=== PATIENT | male | born 1945 | race Caucasian/White ===

== ENCOUNTER 2016-08-17 09:18 | Emergency (ER) | payer MEDICARE, MEDICAID ==
[~2016-08-17] VITALS: Ht 165.1 cm; Wt 70.8 kg
[~2016-08-17 09:18] MED LIST: AMLO5TAB4 PO; CARV25TA PO; CLON0.1T PO; FOLI0.8T23 PO; LEVO25TA2 PO; LISI-603 PO; PANT40TA2 PO
[2016-08-17 12:36] VITALS: BP 138/90
== END 2016-08-17 12:38 | disposition home or self-care (01) ==
LOC: ER 09:20
DX: I12.0 Hypertensive chronic kidney disease with stage 5 chronic kidney disease or end stage renal disease (principal); N18.6 End stage renal disease; K21.9 Gastro-esophageal reflux disease without esophagitis; E03.9 Hypothyroidism, unspecified; E78.5 Hyperlipidemia, unspecified; Z99.2 Dependence on renal dialysis
CPT/HCPCS: A4606; Z7610

== ENCOUNTER 2016-10-03 06:30 | Inpatient (IN) | payer MEDICARE, MEDICAID ==
[~2016-10-03] VITALS: Ht 172.7 cm; Wt 72.6 kg
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
--- NOTE | 2016-10-03 07:02 | NUR ---
REPORT GIVEN TO RODRIGO MARIANO FOR CONTINUATION OF CARE.
--- NOTE | 2016-10-03 07:05 | NUR ---
IV INSERTED LEFT WRIST 20G. PATENT AND FLUSHING WELL.
--- NOTE | 2016-10-03 07:09 | NUR ---
PT TO CT SCAN
[2016-10-03 07:13] LABS: BASOPHILS % (AUTO) 0.4 % (0.0-2.0); EOSINOPHILS # (AUTO) 0.2 /CMM (0.0-0.7); EOSINOPHILS % (AUTO) 3.4 % (0.0-6.0); HEMATOCRIT 28 % (39-51); HEMOGLOBIN 9.1 g/dL (13.5-17.5); LYMPHOCYTES # (AUTO) 0.6 /CMM (0.8-4.8); LYMPHOCYTES % (AUTO) 8.8 % (20.0-44.0); MEAN CORPUSCULAR HEMOGLOBIN 29 PG (26.0-33.0); MEAN CORPUSCULAR HGB CONC 32 g/dl (31.0-36.0); MEAN CORPUSCULAR VOLUME 90 fL (80-96); MONOCYTES # (AUTO) 1.1 /CMM (0.1-1.30); MONOCYTES % (AUTO) 15.6 % (2.0-12.0); NEUTROPHILS # (AUTO) 4.9 /CMM (1.8-8.9); NEUTROPHILS % (AUTO) 71.8 % (43.0-81.0); PLATELET COUNT (AUTO) 345 /CMM (150-450); RDW COEFFICIENT OF VARIATION 16.1 (11.5-15.0); RED BLOOD CELL COUNT(AUTO) 3.11 MIL/uL (4.5-6.0); WHITE BLOOD COUNT (AUTO) 6.9 K/uL (4.3-11.0)
[2016-10-03 07:28] LABS: BILIRUBIN,DIRECT 0.1 mg/dL (0.0-0.2); BILIRUBIN,TOTAL 0.5 mg/dL (0.2-1.0); CALCIUM, SERUM 8.7 mg/dL (8.5-10.1); POTASSIUM 5.1 mmol/L (3.5-5.1); TOTAL PROTEIN, SERUM 7.9 g/dL (6.4-8.2)
[2016-10-03 07:30] LABS: TROPONIN I 0.046 ng/mL (0.00-0.056)
[2016-10-03 07:34] LABS: CREATININE 8.6 mg/dL (0.6-1.3); INR 1.06 (0.87-1.13); PROTHROMBIN TIME 11.4 SECS (9.5-12.7)
[2016-10-03] MEDS ORDERED: ATOR10TA PO (08:28)
[2016-10-03] MEDS ORDERED: CARV3.122 PO (08:28)
[2016-10-03] MEDS ORDERED: SEVE800T8 PO (08:28)
[2016-10-03] MEDS ORDERED: OMEP20CA10 PO (08:28)
[2016-10-03] MEDS ORDERED: CALC667C6 PO (08:28)
[2016-10-03] MEDS ORDERED: VALS80TA2 PO (08:28)
[2016-10-03] MEDS ORDERED: DOXA4TAB3 PO (08:30)
[2016-10-03 08:47] LABS: EOSINOPHILS % (MANUAL) 4 % (0-4); LYMPHOCYTES % (MANUAL) 6 % (16-48); MONOCYTES % (MANUAL) 9 % (0-11.0); NEUTROPHILS % (MANUAL) 81 (42-76)
[2016-10-03 08:48] LABS: ANISOCYTOSIS 1+; PLATELET ESTIMATE ADEQUATE
--- NOTE | 2016-10-03 09:19 | NUR ---
GAVE REPORT TO LIV WALLACE TELE ROOM 312-1 .
--- NOTE | 2016-10-03 09:25 | NUR ---
PANEL ON-CALL PAGED
--- NOTE | 2016-10-03 10:29 | NUR ---
TRANSFER VIA ACLS PROTOCOL
[2016-10-03] MEDS ORDERED: EPOETIN ALFA (10,000 UNIT) 10,000 UNIT/ML VIAL IV ONE (10:30)
--- NOTE | 2016-10-03 10:30 | NUR ---
PAPER CONE GRADER NOTES RECEIVED PT. FROM ER NURSE IN STABLE CONDITION. THERE ARE NO COMPLAINTS OF PAIN AT THIS TIME. NO SOB OR DIFFICULTY BREATHING. BED IN LOW LOCKED POSITION, ALARM ON, SIDE RAILS UP X2, CALL LIGHT WITHIN REACH. WILL BEGIN ADMISSION PROCESS AND AWAIT FURTHER ORDERS FROM THE MD.
[2016-10-03 11:00] VITALS: BP 142/76
[2016-10-03 16:00] VITALS: BP 156/70
--- NOTE | 2016-10-03 18:35 | NUR ---
RUBBER MIXER CLOSING NOTES PT IN STABLE CONDITION, RESTING IN BED. HEMODIALYSIS WAS COMPLETED TODAY. PT HAS BEEN IN STABLE CONDITION SINCE. NO SOB OR SIGNS OF DISTRESS NOTED. ALL ORDERS WERE CARRIED OUT THROUGHOUT SHIFT. WILL ENDORSE TO NIGHTSHIFT NURSE FOR TREASURE.
--- NOTE | 2016-10-03 19:40 | NUR ---
SEALING MACHINE OPERATOR NOTE RECEIVED PATIENT FROM DAY SHIFT, PATIENT IS ALERT AND ORIENTEDX2-3, CONFUSED SOMETIMES, DENIES PAIN OR RESPIRATORY DISTRESS AT THIS TIME. LEFT WRIST 20 G IS PATENT AND INTACT, HL ONLY. RIGHT ARM AV SHUNT NOTED. PATIENT HAD HD TODAY, PER DAY SHIFT NURSE, HOME MEDS RECON HASN'T BEEN DONE BY DR. WHITEHEAD, WILL NOTIFY HIM BEFORE SHE LEAVES. TELE SR 90. SRX2, BED IN LOW POSITION, CALL LIGHT WITHIN REACH, WILL CONTINUE TO MONITOR PATIENT.
[2016-10-03 20:00] VITALS: BP 165/80
[2016-10-04] VITALS (7 sets, daily range): BP systolic 116–168; BP diastolic 69–79
--- NOTE | 2016-10-04 04:54 | NUR ---
DELIVERY HELPER NOTE PATIENT COMPLAINS OF PAIN ON LEFT RIB CAGE, PAGED ONCALL DR GABRIEL. GOT AN ORDER OF TYLENOL 650MG PO ONCE, AND ALSO STATED THAT WAIT UNTIL THE MORNING FOR NORCO. ORDERS IN AND WILL CARRY OUT. Addendum: 10/04/16 at 0507 by SHAMEKA RUSH RN PT INITIALLY ASKED TO TAKE NORCO.
[2016-10-04] MEDS ORDERED: ACETAMINOPHEN 325 MG TABLET ONE (04:55)
[2016-10-04] MEDS: ACETAMINOPHEN 325 MG TABLET PO ONE ×2 (04:59→05:06)
--- NOTE | 2016-10-04 05:07 | NUR ---
DIRECTOR TELEHEALTH NOTE PATIENT REFUSED TO TAKE TYLENOL 650MG STATING 'DON'T PLAY GAMES WITH ME, IT DOES NOTHING TO ME, YOU TAKE IT. FORGET ABOUT IT, I'M FINE. ' ACKNOWLEDGED AND WASTED IT IN PYXIS. NOTIFIED CHG RN WELL.
--- NOTE | 2016-10-04 06:59 | NUR ---
STAIN WIPER NOTE PATIENT IS RESTING IN BED, DENIES RESPIRATORY DISTRESS OR NO FACIAL GRIMACE NOTED. IV ON LEFT WRIST IS PATENT AND INTACT, HL ONLY. TELE MONITOR SR 87. WILL ENDORSE TO DAY SHIFT NURSE FOR TREASURE.
--- NOTE | 2016-10-04 08:00 | NUR ---
ETL PROGRAMMER CLOSING NOTE PATIENT IS ALERT AND ORIENTED x3. PATIENT STATES PAIN ON LEFT SIDE OF RIBS. OFFERED PAIN MEDICATION,PATIENT REFUSED. NO SOB OR DISTRESS AT THIS. CALL LIGHT WITHIN REACH. SAFETY MEASURES IMPLEMENTED. IV INTACT AND PATENT NO REDNESS OR SWELLING NOTED. WILL CONTINUE TO MONITOR. Addendum: 10/04/16 at 0919 by KRISTINE CLEMENTE RN OPENING*
--- NOTE | 2016-10-04 08:00 | NUR ---
BODY WORK AUTO TRIMMER NOTE CALLED DR. WHITEHEAD FOR MEDICATION RECON. AWAITING CALL BACK.
--- NOTE | 2016-10-04 09:19 | NUR ---
SEWER LINE REPAIRER NOTE PATIENT TO BE D/C OFF TELE. WHEN TELLING PATIENT TELE MONITOR NEEDS TO BE TAKEN OFF, PATIENT BECAME AGGRESSIVE WITH MYSELF AND STUDENT. PATIENT REFUSED TO HAVE TELE BOX REMOVED. CHARGE NURSE AWARE.
--- NOTE | 2016-10-04 11:35 | NUR ---
AIR BRAKE WORKER NOTE PATIENT IS REFUSING TO HAVE PHYSICAL THERAPY, PATIENT IS UPSET AND YELLING AT THERAPIST. PHYSICAL THERAPY WILL TRY AGAIN LATER WHEN PATIENT CALMS DOWN AND WE CAN EXPLAIN THE NEED FOR THERAPY
[2016-10-04] MEDS ORDERED: MORPHINE SULFATE INJ 2 MG/ML DISP.SYRIN IM PRN (13:00)
[2016-10-04] MEDS: CARVEDILOL 3.125 MG TABLET PO SCH ×3 (17:00→19:54)
[2016-10-04] MEDS: SEVELAMER CARBONATE 800 MG TABLET PO SCH ×3 (17:12→20:03)
[2016-10-04] MEDS: CALCIUM ACETATE 667 MG TABLET PO SCH ×3 (17:12→20:03)
--- NOTE | 2016-10-04 17:30 | NUR ---
COMPOSITION WEATHERBOARD APPLIER NOTE PATIENT REFUSED MEDICATION. EXPLAINED THE RISKS AND BENEFITS OF MEDICATION PATIENT STILL REFUSED. PATIENT WAS STATING THAT HE DOES NOT WANT TO TAKE THE MEDICATION IN THE HOSPITAL AND WANTS TO TAKE THE MEDICATIONS HE WAS GIVEN WHICH ARE AT HOME. PATIENT BEGAN TO YELL AT ME TELLING ME TO LEAVE AND THAT I SHOULD TAKE HIS MEDICATION. MADE CHARGE NURSE AND COBOL APPLICATION DEVELOPER KNOW ABOUT PATIENT.
--- NOTE | 2016-10-04 18:51 | NUR ---
LETTUCE CUTTER CLOSING NOTE PATIENT IS ALERT AND ORIENTED x4. NO PAIN AT THIS TIME. NO SOB OR DISTRESS NOTED. ALL DUE MEDICATION GIVEN ORDERED. PATIENT NON-COMPLIANT WITH MEDICATION. EXPLAINED RISKS AND BENEFITS MANY TIMES. PATIENT BECOMES UPSET AND TELLS ME TO LEAVE HIS ROOM. CHARGE AND PRESCHOOL TEACHER AIDE AWARE. CALL LIGHT WITHIN REACH AT ALL TIMES. SAFETY MEASURES IMPLEMENTED. WILL ENDORSE TO WATER TAXI OPERATOR NURSE
--- NOTE | 2016-10-04 19:30 | NUR ---
MS RN NOTE RECEIVED PATIENT AWAKE, ALERT AND ORIENTED IN BED. ABLE TO MAKE NEEDS KNOWN. VERY IRRITABLE. RELAXATION TECHNIQUES PROVIDED. SEEMED TO HELP. NO RESPIRATORY DISTRESS AT THIS TIME. PATIENT HAS 8/10 GENERALIZED PAIN.WILL ADMINISTER PAIN MEDICATION ORDERED. BED LOCKED AND IN LOWEST POSITION. SIDE RAILS UP, CALL LIGHT WITHIN REACH. WILL CONTINUE TO MONITOR.
--- NOTE | 2016-10-04 20:04 | NUR ---
MS RN NOTE PATIENT REFUSED RENVELA, CALCIUM ACETATE AND COREG EARLIER. ADMINISTERING NOW. BP 166/78. WILL CONTINUE TO MONITOR.
--- NOTE | 2016-10-04 20:08 | NUR ---
MS RN NOTE PATIENT CONTINUES TO REFUSE RENVELA. THREW PILL ON FLOOR. PER PATIENT, HE TAKES THREE RENVELA AT HOME. WILL NOTIFY .
[2016-10-05] MEDS: MORPHINE SULFATE INJ 2 MG/ML DISP.SYRIN IV PRN ×5 (02:24→22:00)
[2016-10-05] MEDS: LEVOTHYROXINE SODIUM 25 MCG TABLET PO SCH (06:28)
[2016-10-05] MEDS: PANTOPRAZOLE 40 MG TABLET.DR PO SCH (06:28)
--- NOTE | 2016-10-05 07:35 | NUR ---
MS RN INITIAL NOTES REPORT RECEIVED AT THE BEDSIDE. PATIENT RESTING COMFORTABLY IN BED. NO SOB OR DISTRESS NOTED AT THIS TIME. PATIENT REPORTS TOLERABLE PAIN AT THIS TIME, POST MEDICATION. BED IN A LOW POSITION, CALL LIGHT WITHIN PATIENT REACH. WILL CONTINUE TO MONITOR.
[2016-10-05 08:00] VITALS: BP_SYST 100; BP_SYST 172; BP_DIAS 62; BP_DIAS 85
--- NOTE | 2016-10-05 08:13 | NUR ---
MS RN NOTES PATIENT BP IS HIGH 172/85. PATIENT IS DUE FOR DIALYSIS. WAS TOLD PER DIALYSIS NURSE TO STILL HOLD MORNING BP MEDS PRIOR TO DIALYSIS.
[2016-10-05] MEDS: VALSARTAN 80 MG TABLET PO SCH (08:31)
[2016-10-05] MEDS: DOXAZOSIN MESYLATE (4 MG) 4 MG TABLET PO SCH (08:31)
[2016-10-05] MEDS ORDERED: ATORVASTATIN 10 MG TABLET PO SCH ×2 (09:00→22:00)
[2016-10-05 09:35] LABS: BASOPHILS % (AUTO) 0.3 % (0.0-2.0); EOSINOPHILS # (AUTO) 0.2 /CMM (0.0-0.7); HEMATOCRIT 26 % (39-51); HEMOGLOBIN 8.5 g/dL (13.5-17.5); LYMPHOCYTES # (AUTO) 0.5 /CMM (0.8-4.8); LYMPHOCYTES % (AUTO) 7.5 % (20.0-44.0); MEAN CORPUSCULAR HEMOGLOBIN 29 PG (26.0-33.0); MEAN CORPUSCULAR HGB CONC 33 g/dl (31.0-36.0); MEAN CORPUSCULAR VOLUME 90 fL (80-96); MONOCYTES # (AUTO) 0.8 /CMM (0.1-1.30); MONOCYTES % (AUTO) 10.9 % (2.0-12.0); NEUTROPHILS # (AUTO) 5.7 /CMM (1.8-8.9); NEUTROPHILS % (AUTO) 78.3 % (43.0-81.0); PLATELET COUNT (AUTO) 302 /CMM (150-450); RDW COEFFICIENT OF VARIATION 16.3 (11.5-15.0); WHITE BLOOD COUNT (AUTO) 7.2 K/uL (4.3-11.0)
[2016-10-05 09:47] LABS: CALCIUM, SERUM 8.3 mg/dL (8.5-10.1); POTASSIUM 4.2 mmol/L (3.5-5.1)
[2016-10-05 12:00] VITALS: BP 179/81
[2016-10-05] MEDS: CLONIDINE HCL 0.1 MG TABLET PO PRN ×2 (12:33→17:32)
[2016-10-05] MEDS: VIT B CMPLX 3/FA/VIT C/BIOTIN 1 TAB TABLET PO SCH (12:33)
[2016-10-05] MEDS: SEVELAMER CARBONATE 800 MG TABLET PO SCH ×2 (12:33→17:33)
[2016-10-05] MEDS: CALCIUM ACETATE 667 MG TABLET PO SCH ×2 (12:34→17:33)
--- NOTE | 2016-10-05 12:37 | NUR ---
MS RN NOTES PATIENT BP IS 179/81. PATIENT IS REFUSING PRN CLONIDINE. PATIENT STATES THAT HE IS AFRAID TO TAKE ANY BP MEDS RIGHT NOW HE BELIEVES THEY ARE WHAT HAVE BEEN CAUSING HIS DIZZINESS. EXPLAINED TO THE PATIENT THAT THE BP MEDS ARE NEEDED, BUT PATIENT IS REFUSING TO TALK AND STATES, "NO BLOOD PRESSURE MEDS NOW." WILL RECHECK BP ONCE PATIENT HAS CALMED DOWN.
[2016-10-05 13:40] VITALS: BP 150/82
[2016-10-05 13:54] LABS: THYROID STIMULATING HORMONE 1.25 uIU/mL (0.358-3.74)
[2016-10-05 13:59] LABS: TROPONIN I 0.052 ng/mL (0.00-0.056)
[2016-10-05 14:12] LABS: IRON, SERUM 35 ug/dl (50-175); TOTAL IRON BINDING CAPACITY 220 ug/dl (250-450)
--- NOTE | 2016-10-05 14:40 | NUR ---
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 CALLED DR COTA OFFICE FOR DOCTOR JAMES AND WAS TRANSFERRED STRAIGHT TO [employer]. LEFT URGENT MESSAGE WITH DVT INFORMATION FOR DR JAMES TO CALL BACK. WILL FOLLOW UP.
[2016-10-05] MEDS ORDERED: EPOETIN ALFA (10,000 UNIT) 10,000 UNIT/ML VIAL IV ONE (15:00)
--- NOTE | 2016-10-05 15:16 | NUR ---
RECORD CHANGER ASSEMBLER NOTES CALLED AND LEFT A SECOND MESSAGE FOR DOCTOR JAMES ON THE OFFICE ANSWERING MACHINE. WAITING FOR RETURN CALL.
--- NOTE | 2016-10-05 15:40 | NUR ---
BOX PERSON NOTE CALLED NICOLE, DIALYSIS NURSE, AND ASKED IF HE COULD PASS ON A MESSAGE TO HAVE HER CALL ON THE PATIENT JENNIFER. NICOLE STATES HE WILL RELAY THE MESSAGE.
--- NOTE | 2016-10-05 15:49 | NUR ---
MS RN NOTES CALLED DR JAMES EXCHANGE AND LEFT ANOTHER MESSAGE.
[2016-10-05 16:00] VITALS: BP 181/85
--- NOTE | 2016-10-05 16:34 | NUR ---
MS RN NOTES NURSING WALLCOVERING TEXTURER INFORMED OF NO CALL BACK FROM MD AND PT DIAGNOSIS.
--- NOTE | 2016-10-05 17:17 | NUR ---
MS RN NOTES CALLED DR JAMES EXCHANGE AGAIN AND LEFT A MESSAGE. PATIENT WAS TAKEN OFF FLOOR FOR XRAY.
[2016-10-05] MEDS: CARVEDILOL 3.125 MG TABLET PO SCH (17:33)
--- NOTE | 2016-10-05 18:33 | NUR ---
PATIENT OBSERVATION ASSISTANT NOTE CALLED DR JAMES EXCHANGE AGAIN AND SPOKE TO DR WELCH WHO IS PLASTERER TENDER. INFORMED MD OF CAROTID SCAN RESULTS. STATES THAT DR JAMES WILL TAKE CARE OF TREATMENT IN AM.
[2016-10-05 19:00] VITALS: BP 180/87
--- NOTE | 2016-10-05 19:05 | NUR ---
EMERGENCY ROOM PHYSICIAN CLOSING NOTES NO SIGNIFICANT CHANGES IN PATIENT CONDITION THROUGHOUT THE SHIFT. NO SOB OR DISTRESS NOTED AT THIS TIME. PATIENT DENIES PAIN. HEART RATE SR 90. BED IN A LOW POSITION, CALL LIGHT WITHIN PATIENT REACH. WILL ENDORSE FOR TREASURE.
--- NOTE | 2016-10-05 19:15 | NUR ---
RN NOTE RECEIVED REPORT. PT AAOX4, NO C/O CP/SOB/DIZZINESS. NO S/S OF ANY DISTRESS AT THIS TIME. TELE SHOWS SR. WILL OBTAIN ORTHOSTATIC VS. IV INTACT AND PATNT. CALL LIGHT IN REACH, WILL CONT TO MONITOR.
[2016-10-05 22:15] VITALS: BP 158/77
[2016-10-06] VITALS: BP 177/83
--- NOTE | 2016-10-06 01:55 | NUR ---
RN NOTE PT SYSTOLIC BLOOD PRESSURE ELEVATED IN 180'S. PT REFUSED BLOOD PRESSURE PRN DESPITE TEACHING AND ENCOURAGEMENT X3. PT BECAME VERY AGITATED AND COMBATIVE, WHEN GIVING PT TEACHING SAYING "GET OUT OF HERE, IM NOT TAKING THIS". WILL CONT TO MONITOR.
[2016-10-06 04:00] VITALS: BP 171/90
--- NOTE | 2016-10-06 06:30 | NUR ---
RN NOTE PT AWAKE AND ALERTX2, HAS PERIODS OF AGITATION AND CONFUSION. NO C/O CP OR SOB AT THIS TIME. ON ROOM AIR. REFUSING BP MEDICATION FOR ELEVATED SBP. IV INTACT AND PATENT S/L. SAFETY AND COMFORT MEASURES RENDERED. WILL F/U WITH DAY SHIFT FOR TREASURE.
--- NOTE | 2016-10-06 07:35 | NUR ---
MS RN RECEIVED ON BED,AWAKE,ALERT,ORIENTED X4, NOT IN ANY FORM OF DISTRESS, RESPIRATIONS EVEN AND UNLABORED, NO SOB NOTED, WILL MONITOR PATIENT'S CONDITION.
--- NOTE | 2016-10-06 07:52 | NUR ---
LAY 180/87 SIT 176/82 STAND 197/ Addendum: 10/06/16 at 0753 by MARILEE TOLBERT RN Amended: Links added.
[2016-10-06 08:00] VITALS: BP 188/90
[2016-10-06 08:22] LABS: BASOPHILS % (AUTO) 0.4 % (0.0-2.0); EOSINOPHILS # (AUTO) 0.2 /CMM (0.0-0.7); EOSINOPHILS % (AUTO) 2.5 % (0.0-6.0); HEMATOCRIT 29 % (39-51); HEMOGLOBIN 9.2 g/dL (13.5-17.5); LYMPHOCYTES # (AUTO) 0.4 /CMM (0.8-4.8); MEAN CORPUSCULAR HEMOGLOBIN 29 PG (26.0-33.0); MEAN CORPUSCULAR HGB CONC 31 g/dl (31.0-36.0); MEAN CORPUSCULAR VOLUME 91 fL (80-96); MONOCYTES # (AUTO) 1.2 /CMM (0.1-1.30); MONOCYTES % (AUTO) 14.2 % (2.0-12.0); NEUTROPHILS # (AUTO) 6.5 /CMM (1.8-8.9); NEUTROPHILS % (AUTO) 77.9 % (43.0-81.0); PLATELET COUNT (AUTO) 313 /CMM (150-450); RDW COEFFICIENT OF VARIATION 15.9 (11.5-15.0); WHITE BLOOD COUNT (AUTO) 8.3 K/uL (4.3-11.0)
[2016-10-06] MEDS: LEVOTHYROXINE SODIUM 25 MCG TABLET PO SCH (08:25)
[2016-10-06] MEDS: SEVELAMER CARBONATE 800 MG TABLET PO SCH ×3 (08:26→17:24)
[2016-10-06] MEDS: VIT B CMPLX 3/FA/VIT C/BIOTIN 1 TAB TABLET PO SCH (08:26)
[2016-10-06] MEDS: CALCIUM ACETATE 667 MG TABLET PO SCH ×3 (08:26→17:24)
[2016-10-06] MEDS: PANTOPRAZOLE 40 MG TABLET.DR PO SCH (08:26)
[2016-10-06] MEDS: CARVEDILOL 3.125 MG TABLET PO SCH ×2 (08:28→17:25)
[2016-10-06] MEDS: DOXAZOSIN MESYLATE (4 MG) 4 MG TABLET PO SCH (08:28)
[2016-10-06] MEDS: MORPHINE SULFATE INJ 2 MG/ML DISP.SYRIN IV PRN ×3 (08:42→17:30)
[2016-10-06 08:55] LABS: CREATININE 7.3 mg/dL (0.6-1.3); PHOSPHORUS 4.5 mg/dL (2.5-4.9); POTASSIUM 5.2 mmol/L (3.5-5.1)
[2016-10-06] MEDS: VALSARTAN 80 MG TABLET PO SCH (09:00)
--- NOTE | 2016-10-06 09:05 | NUR ---
MS WALLACE BREAKFAST SERVED,DUE MEDS GIVEN,TOLERATED WELL.
--- NOTE | 2016-10-06 09:10 | NUR ---
MS RN WAS SEEN BY DR. ERIKA Tracy/ ORDERS MADE AND CARRIED OUT.
--- NOTE | 2016-10-06 09:20 | NUR ---
MS RN PATIENT REFUSED DVT PROFILAXIS, WAS DISCUSSED W/ DR. JAMES.
[2016-10-06 16:00] VITALS: BP 159/80
--- NOTE | 2016-10-06 17:00 | NUR ---
MS RN DUE MEDS GIVEN,TOLERATED WELL.
[2016-10-06 19:00] VITALS: BP 170/76
--- NOTE | 2016-10-06 19:21 | NUR ---
MS RN ON BED, NO DISTRESS NOTED.
--- NOTE | 2016-10-06 19:23 | NUR ---
RN NOTE RECEIVED REPORT. PT RESTING IN BED WITH EYES CLOSED, NO S/S OF ANY DISTRESS AT THIS TIME. BREATHING NON-LABORED AND EVEN. CALL LIGHT IN REACH, WILL CONT TO MONITOR.
--- NOTE | 2016-10-06 21:00 | NUR ---
RN NOTE PT REFUSING BLOOD PRESSURE PRN MED DESPITE TEACHING AND ENCOURAGEMENT X4. SBP IN 170'S. WILL NOT TAKE IT, GETS VERY AGITATED AND COMBATIVE WHEN ASKING. WILL CONT TO MONITOR.
--- NOTE | 2016-10-07 03:00 | NUR ---
RN NOTE PT CONTINUES TO REFUSE HIS PRN BP MEDICATION FOR HIGH SBP., DESPITE TEACHING X4. WILL CONT TO MONITOR.
[2016-10-07] MEDS: MORPHINE SULFATE INJ 2 MG/ML DISP.SYRIN IV PRN ×3 (06:08→22:23)
--- NOTE | 2016-10-07 06:24 | NUR ---
RN NOTE NO SIGNIFICANT CHANGES OVERNIGHT. PT AWAKE AND ALERT X3, STILL REFUSING PRN BP MEDICATION FOR HIGH SBP. NO C/O OF PAIN OR DISCOMFORT AT THIS TIME. DENIES SOB/CP. IV INTACT AND PATENT. CALL LIGHT IN REACH. WILL F/U WITH DAY SHIFT FOR TREASURE. FOR HD IN AM
[2016-10-07 06:33] LABS: BASOPHILS % (AUTO) 0.2 % (0.0-2.0); EOSINOPHILS # (AUTO) 0.1 /CMM (0.0-0.7); HEMATOCRIT 31 % (39-51); HEMOGLOBIN 9.9 g/dL (13.5-17.5); LYMPHOCYTES # (AUTO) 0.4 /CMM (0.8-4.8); LYMPHOCYTES % (AUTO) 2.7 % (20.0-44.0); MEAN CORPUSCULAR HEMOGLOBIN 29 PG (26.0-33.0); MEAN CORPUSCULAR HGB CONC 32 g/dl (31.0-36.0); MEAN CORPUSCULAR VOLUME 91 fL (80-96); MONOCYTES # (AUTO) 0.9 /CMM (0.1-1.30); MONOCYTES % (AUTO) 6.6 % (2.0-12.0); NEUTROPHILS # (AUTO) 12.2 /CMM (1.8-8.9); NEUTROPHILS % (AUTO) 89.5 % (43.0-81.0); PLATELET COUNT (AUTO) 296 /CMM (150-450); RDW COEFFICIENT OF VARIATION 16.2 (11.5-15.0); RED BLOOD CELL COUNT(AUTO) 3.42 MIL/uL (4.5-6.0); WHITE BLOOD COUNT (AUTO) 13.6 K/uL (4.3-11.0)
[2016-10-07 06:38] LABS: CALCIUM, SERUM 9.1 mg/dL (8.5-10.1); MAGNESIUM 1.9 mg/dL (1.8-2.4); PHOSPHORUS 3.9 mg/dL (2.5-4.9)
[2016-10-07 06:42] LABS: CREATININE 9.4 mg/dL (0.6-1.3)
--- NOTE | 2016-10-07 07:42 | NUR ---
RN MS NOTES PATIENT IN BED, ALERT AND ORIENTED, NO COMPLAINT OF PAIN OR DISCOMFORT AT THIS TIME, NO S/SX OF DISTRESS, ENCOURAGE PATIENT TO CALL FOR ASSISTANCE DURING ADLS, SAFETY MEASURES IN PLACED, CALL LIGHT WITHIN REACH, WILL CONTINUE TO MONITOR.
[2016-10-07 07:56] LABS: POTASSIUM 6.3 mmol/L (3.5-5.1)
[2016-10-07 08:00] VITALS: BP 133/67
[2016-10-07] MEDS: DOXAZOSIN MESYLATE (4 MG) 4 MG TABLET PO SCH (08:03)
[2016-10-07] MEDS: SEVELAMER CARBONATE 800 MG TABLET PO SCH ×3 (08:03→17:10)
[2016-10-07] MEDS: PANTOPRAZOLE 40 MG TABLET.DR PO SCH (08:04)
[2016-10-07] MEDS: CALCIUM ACETATE 667 MG TABLET PO SCH ×3 (08:04→17:10)
[2016-10-07] MEDS: CARVEDILOL 3.125 MG TABLET PO SCH ×2 (08:04→17:11)
[2016-10-07] MEDS: LEVOTHYROXINE SODIUM 25 MCG TABLET PO SCH (08:04)
[2016-10-07] MEDS: VIT B CMPLX 3/FA/VIT C/BIOTIN 1 TAB TABLET PO SCH (08:04)
[2016-10-07] MEDS: VALSARTAN 80 MG TABLET PO SCH (08:05)
--- NOTE | 2016-10-07 08:28 | NUR ---
RODRIGO CRUZ NOTES PATIENT'S POTASSIUM LEVEL IS 6.3 AND SPO2 OF 87% IN ROOM AIR, CALLED [facility], SPOKE WITH DR. WELCH AND RECEIVED ORDER FOR OXYGEN Addendum: 10/07/16 at 0829 by AHMET RALPH RN ADDENDUM: NO NEW ORDER FOR POTASSIUM LEVEL AT THIS TIME. PER MD, PATIENT WILL HAVE DIALYSIS TODAY, CONTINUE TO MONITOR.
--- NOTE | 2016-10-07 09:26 | NUR ---
RN MS NOTES PATIENT IS CURRENTLY ON HEMODIALYSIS.
[2016-10-07] MEDS ORDERED: EPOETIN ALFA (10,000 UNIT) 10,000 UNIT/ML VIAL SQ ONE (09:30)
--- NOTE | 2016-10-07 13:00 | NUR ---
RN MS NOTES PATIENT COMPLETED HEMODIALYSIS WITH OUTPUT OF 2.5 LITER. PATIENT IN STABLE CONDITION, VITAL SIGNS STABLE.
--- NOTE | 2016-10-07 19:41 | NUR ---
RN MS NOTES ALERT AND ORIENTED, IN BED, NO DISTRESS NOTED, WITH EPISODES OF REMOVING NASAL CANNULA, PATIENT RE-EDUCATED, NO SOB NOTED, CALL LIGHT WITHIN REACH, SAFETY MEASURES IN PLACED, WILL ENDORSE TO VIDEOGRAPHER FOR TREASURE.
--- NOTE | 2016-10-07 19:45 | NUR ---
RN OPENING NOTES RECEIVED REPORT FROM CANDIE RNAHMET. FOUND Pt AWAKE, RESTING IN BED. NO S/S OF ACUTE DISTRESS OR SOB NOTED. Pt IS A/OX3, VERBAL, ABLE TO MAKE NEEDS KNOWN. IV ACCESS ON L WRIST #20G. HD TODAY 2.5L OUT. SAFETY MEASURES IN PLACE. WILL CONTINUE TO MONITOR Pt THROUGHOUT THE NIGHT FOR SAFETY.
[2016-10-07 20:00] VITALS: BP 135/75
--- NOTE | 2016-10-07 22:35 | NUR ---
RN NOTES Pt REQUESTED PAIN MED. AFTER THE MED WAS SCANNED AND SAVED, Pt SUDDENLY REFUSED MED THINKING IT WAS NOT THE RIGHT AMOUNT. EVEN SHOWED THE Pt HIS eMAR LIST SHOWING THAT THE MORPHINE WAS 2MG. BUT HE STILL DID NOT BELIEVE ME. THEN Pt WAS SUDDENLY LOOKING FOR HIS WALLET, CLAIMING THAT IT WAS ON HIS BED, AND NOW IT'S MISSING AND THAT IT WAS STOLEN. WHEN I ASKED HIM AGAIN IF HE WANTED HIS PAIN MED HE SAID LATER AFTER HE FINDS HIS WALLET. I INFORMED HIM THAT THERE WAS NO WALLET ON HIS BED WHEN I FIRST ENTERED THE ROOM. HE SAID I DID NOT KNOW WHAT I WAS TALKING ABOUT. I INFORMED THE Pt THAT IF HE DOES NOT TAKE THE PAIN MED NOW THEN I WOULD HAVE TO THROW IT AWAY AND WON'T BE ABLE TO GIVE HIM ANOTHER PAIN SHOT FOR ANOTHER 2 HOURS. Pt SAID HE DID NOT CARE, AND TOLD ME TO THROW IT AWAY.
--- NOTE | 2016-10-08 06:45 | NUR ---
RN CLOSING NOTES NO SIGNIFICANT CHANGES DURING THE NIGHT. NO S/S OF ACUTE DISTRESS OR SOB NOTED. ALL NEEDS MET AND ATTENDED TO. SAFETY MEASURES IN PLACE. WILL ENDORSE TO DAYSHIFT RN FOR Pt's TREASURE.
--- NOTE | 2016-10-08 07:22 | NUR ---
RN MS NOTES PATIENT IN BED, INTERMITTENTLY SLEEPING, APPEARS AGITATED, ASKING FOR HIS MEDICATIONS, WHEN I ASKED WHICH MEDICATIONS, HE STATED "I DONT KNOW, CHECK YOUR SCHEDULE," INFORMED THE PATIENT I WILL COME BACK WITH HIS SCHEDULED MEDICATIONS, DENIES PAIN AT THIS TIME, ON 3LPM VIA NC, NO SOB NOTED, CALL LIGHT PLACED WITHIN REACH, WILL CONTINUE TO MONITOR.
[2016-10-08] MEDS: PANTOPRAZOLE 40 MG TABLET.DR PO SCH (07:55)
[2016-10-08] MEDS: LEVOTHYROXINE SODIUM 25 MCG TABLET PO SCH (07:56)
[2016-10-08] MEDS: CALCIUM ACETATE 667 MG TABLET PO SCH ×2 (07:56→12:16)
[2016-10-08] MEDS: SEVELAMER CARBONATE 800 MG TABLET PO SCH ×2 (07:56→12:16)
[2016-10-08] MEDS: DOXAZOSIN MESYLATE (4 MG) 4 MG TABLET PO SCH (07:59)
[2016-10-08] MEDS: CARVEDILOL 3.125 MG TABLET PO SCH (07:59)
[2016-10-08] MEDS: VALSARTAN 80 MG TABLET PO SCH (07:59)
[2016-10-08] MEDS: VIT B CMPLX 3/FA/VIT C/BIOTIN 1 TAB TABLET PO SCH (07:59)
[2016-10-08 08:00] VITALS: BP 169/87
--- NOTE | 2016-10-08 08:01 | NUR ---
RN MS NOTES PATIENT INFORMED BLOOD PRESSURE IS MORE THAN 160, THEREFORE NEEDS CLONIDINE, BUT PATIENT REFUSED TO TAKE MEDICATION, EXPLAINED RISKS AND BENEFITS STILL REFUSED. PATIENT DID TAKE ALL OTHER DUE MEDICATIONS.
[2016-10-08] MEDS: CLONIDINE HCL 0.1 MG TABLET PO PRN (08:02)
[2016-10-08] MEDS: MORPHINE SULFATE INJ 2 MG/ML DISP.SYRIN IV PRN ×2 (08:34→14:49)
--- NOTE | 2016-10-08 11:02 | NUR ---
SOPHIA received a call from pt's RN stating pt. needs assistance with ACCESS transportation. SOPHIA met with pt. bedside. Pt. is A&O x 4. SOPHIA completed ACCESS application with pt. and called ACCESS . The ACCESS operation informed SW that pt. already has an open case and the application booklet has been mailed to him on October 01. Pt. should receive the application within the next few days. SOPHIA relayed the message to pt. Pt. understood. SOPHIA gave pt. his ACCESS Jeffry number that was given to her by the ACCESS electric detector operator and informed pt. to write his number on the application booklet that was sent to him in the mail. Pt. was appreciative of SOPHIA's assistance.
[2016-10-08 12:26] VITALS: BP 124/73
[2016-10-08 12:29] LABS: BASOPHILS % (AUTO) 0.3 % (0.0-2.0); EOSINOPHILS # (AUTO) 0.2 /CMM (0.0-0.7); EOSINOPHILS % (AUTO) 2.2 % (0.0-6.0); HEMATOCRIT 30 % (39-51); HEMOGLOBIN 9.5 g/dL (13.5-17.5); LYMPHOCYTES # (AUTO) 0.7 /CMM (0.8-4.8); LYMPHOCYTES % (AUTO) 7.4 % (20.0-44.0); MEAN CORPUSCULAR HEMOGLOBIN 29 PG (26.0-33.0); MEAN CORPUSCULAR HGB CONC 32 g/dl (31.0-36.0); MEAN CORPUSCULAR VOLUME 90 fL (80-96); MONOCYTES # (AUTO) 1.1 /CMM (0.1-1.30); NEUTROPHILS # (AUTO) 6.8 /CMM (1.8-8.9); NEUTROPHILS % (AUTO) 77.1 % (43.0-81.0); PLATELET COUNT (AUTO) 298 /CMM (150-450); RDW COEFFICIENT OF VARIATION 15.9 (11.5-15.0); RED BLOOD CELL COUNT(AUTO) 3.33 MIL/uL (4.5-6.0); WHITE BLOOD COUNT (AUTO) 8.8 K/uL (4.3-11.0)
[2016-10-08 12:59] LABS: CALCIUM, SERUM 8.9 mg/dL (8.5-10.1); POTASSIUM 4.8 mmol/L (3.5-5.1)
[2016-10-08 13:00] LABS: CREATININE 8.9 mg/dL (0.6-1.3)
--- NOTE | 2016-10-08 15:07 | NUR ---
RN MS NOTES PATIENT RECEIVED DISCHARGE INSTRUCTIONS, VERBALIZED UNDERSTANDING BUT PATIENT REFUSED TO SIGN PAPERWORK, DISCHARGE WITNESSED BY ANOTHER NURSE AMINA RN, PATIENT APPEARS TO BE AGITATED, PATIENT DOESN'T REMEMBER HAVING HEMODIALYSIS YESTERDAY, RE-ORIENTED, PROVIDED A COPY OF DIALYSIS FROM YESTERDAY, MEDICATION LIST PROVIDED AND DISCUSSED HOW TO TAKE MEDICATIONS, MEDICATIONS FROM HOME RECEIVED FROM PHARMACY AND GIVEN BACK TO THE PATIENT. SKIN ASSESSMENT DONE WITH PHOTOS TAKEN AND PLACED IN CHART.
--- NOTE | 2016-10-08 16:21 | NUR ---
RN MS NOTES PATIENT LEFT THE HOSPITAL IN STABLE CONDITION, VIA TAXI, PATIENT BROUGHT ALL OF HIS BELONGINGS.
== END 2016-10-08 16:10 | disposition home or self-care (01) | DRG 913 ==
LOC: ER 06:33 → TELE 08:55 → MED 10-04 09:10 → TELE 10-05 11:35 → MED 10-06 10:51
PROVIDERS: ADMIT Internal Medicine; ATTEND Internal Medicine
PROC: 5A1D60Z (ICD-10-PCS; principal; 2016-10-03)
DX: S09.90XA Unspecified injury of head, initial encounter (principal); N18.6 End stage renal disease; I13.2 Hypertensive heart and chronic kidney disease with heart failure and with stage 5 chronic kidney disease, or end stage renal disease; I82.C11 Acute embolism and thrombosis of right internal jugular vein; T82.898A Other specified complication of vascular prosthetic devices, implants and grafts, initial encounter; W18.30XA Fall on same level, unspecified, initial encounter; Y92.811 Bus as the place of occurrence of the external cause; I25.10 Atherosclerotic heart disease of native coronary artery without angina pectoris; K21.9 Gastro-esophageal reflux disease without esophagitis; E78.5 Hyperlipidemia, unspecified; Z99.2 Dependence on renal dialysis; F20.9 Schizophrenia, unspecified; D64.9 Anemia, unspecified; D72.829 Elevated white blood cell count, unspecified; E03.9 Hypothyroidism, unspecified; E83.39 Other disorders of phosphorus metabolism; E87.5 Hyperkalemia; M81.0 Age-related osteoporosis without current pathological fracture; N40.0 Benign prostatic hyperplasia without lower urinary tract symptoms; R29.6 Repeated falls; R07.81 Pleurodynia; I35.0 Nonrheumatic aortic (valve) stenosis; I34.0 Nonrheumatic mitral (valve) insufficiency; I50.9 Heart failure, unspecified; I35.1 Nonrheumatic aortic (valve) insufficiency; Y83.9 Surgical procedure, unspecified as the cause of abnormal reaction of the patient, or of later complication, without mention of misadventure at the time of the procedure; Y92.009 Unspecified place in unspecified non-institutional (private) residence as the place of occurrence of the external cause
CPT/HCPCS: 36415; 70450-TC; 71111-TC; 71250-TC; 73510-TC; 80048-TC; 80061-TC; 80076-TC; 82728-TC; 83540-TC; 83735-TC; 84100-TC; 84439-TC; 84443-TC; 84484-TC; 85025-TC; 85730-TC; 87040-TC; 87081-TC; 90935-TC; 93307-TC; 93880-TC; 97001-TC; A4606; J0885; J2270; Z7610

== ENCOUNTER 2016-10-22 11:55 | Inpatient (IN) | payer MEDICARE, MEDICAID ==
[~2016-10-22] VITALS: Ht 177.8 cm; Wt 76.9 kg
[~2016-10-22 11:55] MED LIST changes: -AMLO5TAB4 PO; +ATOR10TA PO; +CALC667C6 PO; -CARV25TA PO; +CARV3.122 PO; +DOXA4TAB3 PO; -FOLI0.8T23 PO; -LISI-603 PO; +OMEP20CA10 PO; -PANT40TA2 PO; +SEVE800T8 PO; +VALS80TA2 PO
--- NOTE | 2016-10-22 11:58 | NUR ---
YOLANDA 878 FROM [facility] FOR EVALUATION OF CHRONIC BILATERAL LOWER EXTREMITIES PITTING EDEMA. PLACED ON MONITOR.VSS AWAITING MD ORDER
--- NOTE | 2016-10-22 12:10 | NUR ---
DR PRADO AT BEDSIDE FOR EVAL
--- NOTE | 2016-10-22 12:15 | NUR ---
LAB AT BEDSIDE BLOOD SAMPLE COLLECTED
--- NOTE | 2016-10-22 12:22 | NUR ---
EKG IN PROGRESS
[2016-10-22 12:26] LABS: BASOPHILS % (AUTO) 0.1 % (0.0-2.0); EOSINOPHILS # (AUTO) 0.2 /CMM (0.0-0.7); EOSINOPHILS % (AUTO) 2.3 % (0.0-6.0); HEMATOCRIT 30 % (39-51); HEMOGLOBIN 9.7 g/dL (13.5-17.5); LYMPHOCYTES # (AUTO) 0.4 /CMM (0.8-4.8); MEAN CORPUSCULAR HEMOGLOBIN 29 PG (26.0-33.0); MEAN CORPUSCULAR HGB CONC 33 g/dl (31.0-36.0); MEAN CORPUSCULAR VOLUME 89 fL (80-96); NEUTROPHILS # (AUTO) 7.2 /CMM (1.8-8.9); NEUTROPHILS % (AUTO) 81.6 % (43.0-81.0); PLATELET COUNT (AUTO) 231 /CMM (150-450); RDW COEFFICIENT OF VARIATION 16.1 (11.5-15.0); RED BLOOD CELL COUNT(AUTO) 3.31 MIL/uL (4.5-6.0); WHITE BLOOD COUNT (AUTO) 8.8 K/uL (4.3-11.0)
--- NOTE | 2016-10-22 12:26 | NUR ---
REPEAT CHIEF AT BEDSIDE
[2016-10-22 12:33] LABS: CALCIUM, SERUM 8.5 mg/dL (8.5-10.1); CREATININE 5.2 mg/dL (0.6-1.3); POTASSIUM 4.7 mmol/L (3.5-5.1)
[2016-10-22 12:40] LABS: BILIRUBIN,DIRECT 0.1 mg/dL (0.0-0.2); BILIRUBIN,TOTAL 0.6 mg/dL (0.2-1.0); TOTAL PROTEIN, SERUM 7.6 g/dL (6.4-8.2)
--- NOTE | 2016-10-22 12:52 | NUR ---
'S GROUP CALLED, BALLET MASTER/MISTRESS, PAGED TO CALL BACK
--- NOTE | 2016-10-22 12:53 | NUR ---
VENDOR ANALYST AT BEDSIDE
[2016-10-22] MEDS ORDERED: ASPIRIN 325 MG TABLET PO ONE (14:00)
[2016-10-22] MEDS ORDERED: LEVOFLOXACIN 750 MG /D5W 150ML PIGGYBACK IV ONE (14:00)
[2016-10-22] MEDS ORDERED: LEVOFLOXACIN 750 MG /D5W 150ML 150 ML IV ONE (14:09)
[2016-10-22] MEDS ORDERED: ASPIRIN 325 MG TABLET ONE (14:09)
[2016-10-22] MEDS ORDERED: IV SET PRIMARY PUMP SET 1 EA INFUS.SET MC ONE (14:10)
--- NOTE | 2016-10-22 14:23 | NUR ---
GAVE REPORT TO REDDY WALLACE MEDSURG 325 TRANSFER VIA GURNEY BY ERT DX PNEUMONIA ADMITTING DR WHITEHEAD
--- NOTE | 2016-10-22 14:26 | NUR ---
LEVOFLOXACIN TRASNFUSING DURING TRASNPORT
[2016-10-22 15:00] VITALS: BP_SYST 163; BP_SYST 167; BP_DIAS 81
[2016-10-22] MEDS ORDERED: ALBUTEROL FS 2.5 MG/3 ML VIAL.NEB NEB PRN (15:00)
[2016-10-22] MEDS ORDERED: IPRATROPIUM NEB FS 0.5 MG/2.5 ML AMPUL.NEB NEB PRN (15:00)
[2016-10-22] MEDS ORDERED: DOSE PER PHARMACY (MD SPECIFY MEDICATION) 1 EA XX PRN (15:00)
--- NOTE | 2016-10-22 15:00 | NUR ---
RODRIGO INITIAL NOTE REPORT RECEIVED FROM SARAH IN ER. PT STABLE V/S TAKEN TELE MONITOR ON PT. PT A/O X3 RESTING IN BED. SPO2 95 ON RA. PAIN 0/10 PICTURES TAKEN PT HAS SCABS ALL OVER BODY NO SKIN TEARS. IV BERENICE #20G PATENT FLUSHED AND INTACT. Addendum: 10/22/16 at 1716 by BISHOP BRADSHAW RN ALL SAFTEY MEASURES IN PLACE. WILL CONTINUE TO MONITOR CLOSELY.
[2016-10-22] MEDS: ATORVASTATIN 10 MG TABLET PO SCH (17:27)
[2016-10-22] MEDS: DOXAZOSIN MESYLATE (4 MG) 4 MG TABLET PO SCH (17:27)
[2016-10-22] MEDS: CARVEDILOL 3.125 MG TABLET PO SCH (17:28)
--- NOTE | 2016-10-22 19:30 | NUR ---
TELE/RN OPENING NOTES RECIEVED PT RESTING COMFORTABLY IN BED. ON ROOM AIR, NO SOB OR DISTRESS NOTED. DENIES PAIN. REQUESTING SANDWICH. IV TO BERENICE PATENT AND INTACT. ON TELE MONITOR, SINUS RHYTHM WITH HR AT 87. BED IN LOW/LOCKED POSITION, CALL LIGHT IN REACH. WILL CONTINUE TO MONITOR
--- NOTE | 2016-10-22 19:33 | NUR ---
RN CLOSING NOTE PT ON TELE MONITOR SR. PT A/O X3 RESTING IN BED. NO C/O SOB. PAIN 0/10. IV BERENICE #20G PATENT FLUSHED AND INTACT. ALL MEDICATIONS GIVEN ALL ORDERS CARRIED OUT. REPORT GIVEN TO AAMIR AMANDA.
[2016-10-22 20:37] VITALS: BP 143/73
[2016-10-23] VITALS: BP 146/76
--- NOTE | 2016-10-23 02:00 | NUR ---
TELE/RN NOTES BREATHING EVEN AND UNLABORED. NO SIGNS OF DISTRESS NOTED. WILL CONTINUE TO MONITOR
[2016-10-23 04:00] VITALS: BP 156/70
[2016-10-23 06:50] VITALS: BP 161/76
--- NOTE | 2016-10-23 07:00 | NUR ---
TELE/RN CLOSING NOTES PT AWAKE, A/OX3, ON ROOM AIR, NO SOB OR DISTRESS NOTED. UP WITH WALKER AND ASSISTED WITH MORNING ADL'S. ON TELE MONITOR, SINUS RHYTHM WITH HEART RATE 76. IV TO BERENICE PATENT AND INTACT. BED IN LOW/LOCKED POSITION WITH CALL LIGHT IN REACH. BED RAILS UP AND ALARM ON. ALL NEEDS MET AND ATTENDED TO. MADE PT COMFORTABLE THROUGHOUT SHIFT. ENDORSED TO AM SHIFT TREASURE.
[2016-10-23 07:06] LABS: BASOPHILS % (AUTO) 0.4 % (0.0-2.0); EOSINOPHILS # (AUTO) 0.1 /CMM (0.0-0.7); EOSINOPHILS % (AUTO) 1.9 % (0.0-6.0); HEMATOCRIT 29 % (39-51); HEMOGLOBIN 9.2 g/dL (13.5-17.5); LYMPHOCYTES # (AUTO) 0.5 /CMM (0.8-4.8); LYMPHOCYTES % (AUTO) 6.9 % (20.0-44.0); MEAN CORPUSCULAR HEMOGLOBIN 29 PG (26.0-33.0); MEAN CORPUSCULAR HGB CONC 32 g/dl (31.0-36.0); MEAN CORPUSCULAR VOLUME 90 fL (80-96); NEUTROPHILS # (AUTO) 5.9 /CMM (1.8-8.9); NEUTROPHILS % (AUTO) 77.8 % (43.0-81.0); PLATELET COUNT (AUTO) 197 /CMM (150-450); RDW COEFFICIENT OF VARIATION 16.7 (11.5-15.0); WHITE BLOOD COUNT (AUTO) 7.6 K/uL (4.3-11.0)
--- NOTE | 2016-10-23 07:15 | NUR ---
BEHAVIOR SUPPORT SPECIALIST NOTES PATIENT IN BED, AWAKE, A/O X3. ON TELE MONITOR SINUS RHYTHM HR 76. PATIENT IS AMBULATORY, NO C/O PAIN AT THIS TIME. RIGHT CHEST WALL HD CATH, NO BLEEDING NOTED. WILL CONT TO MONITOR. CALL LIGHT WITHIN REACH.
[2016-10-23 07:39] LABS: CALCIUM, SERUM 8.1 mg/dL (8.5-10.1); CREATININE 6.7 mg/dL (0.6-1.3); MAGNESIUM 1.8 mg/dL (1.8-2.4); PHOSPHORUS 5.7 mg/dL (2.5-4.9); POTASSIUM 5.5 mmol/L (3.5-5.1)
[2016-10-23 08:00] VITALS: BP 151/76
--- NOTE | 2016-10-23 08:00 | NUR ---
RECEIVED PHONE CALL FROM [facility], PER CHARANJIT, PATIENT HAS EPISODE OF AGGRESSIVE BEHAVIOR AND PARANOIA DURING DIALYSIS TREATMENT. CHARGE NURSE MADE AWARE, WILL INFORMED
[2016-10-23] MEDS: VALSARTAN 80 MG TABLET PO SCH (08:25)
[2016-10-23] MEDS: ATORVASTATIN 10 MG TABLET PO SCH (08:25)
[2016-10-23] MEDS: DOXAZOSIN MESYLATE (4 MG) 4 MG TABLET PO SCH (08:25)
[2016-10-23] MEDS: LEVOTHYROXINE SODIUM 25 MCG TABLET PO SCH (08:25)
[2016-10-23] MEDS: CARVEDILOL 3.125 MG TABLET PO SCH ×2 (08:25→17:20)
--- NOTE | 2016-10-23 08:42 | NUR ---
DUE MEDS GIVEN. WHILE REVIEWING MEDS, PATIENT USES INAPPROPRIATE WORDS AND BECAME AGGRESSIVE. PROVIDED RE ASSURANCE AND EXPLAINED RISK AND BENEFITS OF THE MEDICATION AND IMPORTANCE TO THE PATIENT. CHARGE NURSE INFORMED.
--- NOTE | 2016-10-23 10:53 | NUR ---
PATIENT IS SEEN BY DR. JAMES TODAY WITH NEW ORDERS NOTED AND ACKNOWLEDGED. FOR PSYCH CONSULT AND PT EVAL ORDERED.
[2016-10-23] MEDS ORDERED: SODIUM POLYSTYRENE SULFONATE 15 G/60 ML BOTTLE PO ONE (11:00)
--- NOTE | 2016-10-23 15:00 | NUR ---
PATIENT IS SEEN BY DR. GOMEZ TODAY FOR PSYCH CONSULT, PER DR. RED PATIENT IS ONLY HAVING PERSONALITY ISSUES AND DEPRESSION.
[2016-10-23] MEDS ORDERED: IV SET PRIMARY PUMP SET 1 EA INFUS.SET MC ONE (15:25)
[2016-10-23] MEDS: LEVOFLOXACIN 750 MG /D5W 150ML 750 MG in PREMIX 1 EA IV SCH (15:27)
[2016-10-23 16:00] VITALS: BP 146/55
--- NOTE | 2016-10-23 18:50 | NUR ---
MS RN CLOSING NOTES PATIENT IN BED, A/O X4. NOT IN DISTRESS. ON ANTIBIOTIC WITH NO ADVERSE REACTION. PATIENT HAD BOWEL MOVEMENT TODAY X4 AFTER TAKING KAYEXALATE PO PRN ORDERED. CALL LIGHT WITHIN REACH. LABS IN AM ORDERED. WILL ENDORSE TO HRIS COORDINATOR RN FOR CONTINUITY OF CARE.
--- NOTE | 2016-10-23 19:35 | NUR ---
MS/RN OPENING NOTES PT AWAKE, RESTING COMFORTABLY IN BED. ON ROOM AIR, BREATHING EVEN AND UNLABORED. DENIES SOB OR PAIN. KAYEXELATE ADMINISTERED FOR K 5.5, PT HAD 4 BM'S. BED IN LOW/LOCKED POSITION WITH CALL LIGHT IN REACH. BED RAILS XUP2. WILL CONTINUE TO MONITOR
[2016-10-23 20:00] VITALS: BP 166/100
--- NOTE | 2016-10-23 20:30 | NUR ---
MS/RN NOTES PT NOTED TO HAVE O2 SATTING AT 90% ON RA. PT PLACED ON O2 2LPM VIA NC, O2 SAT INCREASED TO 95%. WILL CONTINUE TO MONITOR
[2016-10-23] MEDS: CLONIDINE HCL 0.1 MG TABLET PO PRN (20:50)
--- NOTE | 2016-10-23 21:00 | NUR ---
MS/RN NOTES ADMINISTERED PRN CATAPRES 0.1MG FOR BP 166/100, HR 87 WILL MONITOR FOR EFFECTIVENESS
[2016-10-24] VITALS (7 sets, daily range): BP systolic 163–177; BP diastolic 75–91
--- NOTE | 2016-10-24 01:21 | NUR ---
MS/RN NOTES SPOKE TO DR. WHITEHEAD REGARDING PT'S INCREASED BP ALTHOUGH PRN CATAPRES 0.1MG WAS ADMINISTERED. LATEST BP WAS 168/79 WITH HEART RATE 81. PER MD, CONTINUE TO MONITOR UNTIL AM, NO NEW ORDERS AT THIS TIME. WILL CARRY OUT ACCORDINGLY.
--- NOTE | 2016-10-24 03:25 | NUR ---
MS/RN NOTES PT'S IV LEAKING AND REMOVED. PT REFUSING NEW IV INSERTION AT THIS TIME, EDUCATED PT IMPORTANCE OF IV ACCESS IN CASE OF AN EMERGENCY BUT PT STILL REFUSING SAYING HE DOES NOT NEED IT NOW, OKAY TO INSERT AT A LATER TIME.
--- NOTE | 2016-10-24 07:30 | NUR ---
MS RN OPENING NOTES RECEIVED PT. FROM NIGHTSHIFT NURSE IN STABLE CONDITION. A/O X3. ON 2 L O2 VIA NC. NO SOB OR SIGNS OF DISTRESS NOTED. BREATHING IS EVEN AND UNLABORED. NO IV ACCESS AT THIS TIME. WILL ATTEMPT AT A LATER TIME. NO COMPLAINTS OF PAIN AT THIS TIME BED IN LOW LOCKED POSITION, SIDE RAILS UP X2, CALL LIGHT WITHIN REACH. WILL CONTINUE TO MONITOR.
[2016-10-24 07:44] LABS: BASOPHILS % (AUTO) 0.2 % (0.0-2.0); EOSINOPHILS # (AUTO) 0.1 /CMM (0.0-0.7); EOSINOPHILS % (AUTO) 2.1 % (0.0-6.0); HEMATOCRIT 29 % (39-51); HEMOGLOBIN 9.5 g/dL (13.5-17.5); LYMPHOCYTES # (AUTO) 0.6 /CMM (0.8-4.8); LYMPHOCYTES % (AUTO) 8.4 % (20.0-44.0); MEAN CORPUSCULAR HEMOGLOBIN 29 PG (26.0-33.0); MEAN CORPUSCULAR HGB CONC 32 g/dl (31.0-36.0); MEAN CORPUSCULAR VOLUME 89 fL (80-96); MONOCYTES % (AUTO) 14.7 % (2.0-12.0); NEUTROPHILS % (AUTO) 74.6 % (43.0-81.0); PLATELET COUNT (AUTO) 190 /CMM (150-450); RDW COEFFICIENT OF VARIATION 16.9 (11.5-15.0); RED BLOOD CELL COUNT(AUTO) 3.29 MIL/uL (4.5-6.0); WHITE BLOOD COUNT (AUTO) 6.7 K/uL (4.3-11.0)
[2016-10-24 07:55] LABS: CARBON DIOXIDE 29 mmol/L (21-32); CHLORIDE 101 mmol/L (98-107); GLUCOSE 99 mg/dL (74-106); MAGNESIUM 1.9 mg/dL (1.8-2.4); PHOSPHORUS 6.6 mg/dL (2.5-4.9); SODIUM SERUM 142 mmol/L (136-145); UREA NITROGEN, BLOOD 72 mg/dL (7-18)
[2016-10-24 07:57] LABS: CREATININE 8.5 mg/dL (0.6-1.3)
[2016-10-24] MEDS: VALSARTAN 80 MG TABLET PO SCH (09:16)
[2016-10-24] MEDS: ATORVASTATIN 10 MG TABLET PO SCH (09:16)
[2016-10-24] MEDS: ESCITALOPRAM OXALATE (10 MG) 10 MG TABLET PO SCH (09:16)
[2016-10-24] MEDS: LEVOTHYROXINE SODIUM 25 MCG TABLET PO SCH (09:16)
[2016-10-24] MEDS: DOXAZOSIN MESYLATE (4 MG) 4 MG TABLET PO SCH (09:17)
[2016-10-24] MEDS: CARVEDILOL 3.125 MG TABLET PO SCH ×2 (09:17→18:14)
[2016-10-24] MEDS ORDERED: EPOETIN ALFA (10,000 UNIT) 10,000 UNIT/ML VIAL SQ ONE (11:00)
--- NOTE | 2016-10-24 11:52 | NUR ---
MS RODRIGO NOTES IV WAS SUCCESSFULLY INSERTED ON RIGHT WRIST, 22G. FLUSHES WELL TO SALINE, PATENT AND INTACT
--- NOTE | 2016-10-24 18:55 | NUR ---
MS RN CLOSING NOTES PT. IN STABLE CONDITION. NO SOB OR SIGNS OF DISTRESS NOTED. ALL NEEDS MET AND ORDERS CARRIED OUT ACCORDINGLY. NO ACUTE CHANGES IN CONDITION OCCURRED DURING SHIFT. WILL ENDORSE TO NIGHTSHIFT NURSE FOR TREASURE.
--- NOTE | 2016-10-24 19:35 | NUR ---
MS/SENIOR ADMINISTRATIVE SERVICES OFFICER; RECEIVED PT IN BED AWAKE, ALERT AND ORIENTED. DENIES PAIN. BREATHING NON LABORED. HL ON LFA INTACT. AV SHUNT ON SAUNDRA INTACT. BED ON LOWER POSITION AND LOCKED FOR SAFETY. UPPER PART OF BED SIDE RAILS ARE UP FOR SAFETY. PT ASKED FOR CRACKERS AND APPLE JUICE GIVEN . CONTINUE TO MONITOR. CALL LIGHT WITHIN REACH.
[2016-10-24] MEDS: CLONIDINE HCL 0.1 MG TABLET PO PRN (20:53)
--- NOTE | 2016-10-24 20:55 | NUR ---
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 TID PRN FOR SBP > 160. bp was 163/ 76 SO CATAPRES GIVEN AT 20 53.
--- NOTE | 2016-10-24 21:15 | NUR ---
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 OLINDA JAMES AND I NOTIFIED HER THAT PT. C/O HEADACHE AND WANTS PAIN MED. DR. OLINDA JAMES WITH ORDER OF TYLENOL 650 MG PO TABS. Q6 PRN FOR PAIN AND FEVER. ORDER CARRIED OUT. I INFORMED THE CHARGE NURSE GAIL OF THE ABOVE.
[2016-10-24] MEDS ORDERED: ACETAMINOPHEN 325 MG TABLET ONE (21:40)
[2016-10-24] MEDS: ACETAMINOPHEN 325 MG TABLET PO PRN (21:47)
--- NOTE | 2016-10-24 21:50 | NUR ---
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 Q6 PRN WAS GIVEN AT 2147.
--- NOTE | 2016-10-25 06:32 | NUR ---
MS/COMIC ARTIST; SLEPT ON AND OFF. BREATHING NON LABORED. PT IN BED AT THIS TIME SLEEPING. CONTINUE TO MONITOR. CALL LIGHT WITHIN REACH. WILL ENDORSE TO THE DAY SHIFT.
--- NOTE | 2016-10-25 07:25 | NUR ---
MS RN OPENING NOTES RECEIVED PT. FROM NIGHTSHIFT NURSE IN STABLE CONDITION. A/O X3. ON RA AND SATING AT 95%. NO SOB OR SIGNS OF DISTRESS NOTED. BREATHING IS EVEN AND UNLABORED. IV ON LEFT WRIST 20G INTACT AND PATENT. NO REDNESS OR INFILTRATION NOTED. NO COMPLAINTS OF PAIN AT THIS TIME. BED IN LOW LOCKED POSITION, SIDE RAILS UP X2, CALL LIGHT WITHIN REACH. WILL CONTINUE TO MONITOR.
[2016-10-25] MEDS: LEVOTHYROXINE SODIUM 25 MCG TABLET PO SCH (07:44)
[2016-10-25 08:00] VITALS: BP 168/79
[2016-10-25] MEDS: ATORVASTATIN 10 MG TABLET PO SCH (09:00)
[2016-10-25] MEDS: CARVEDILOL 3.125 MG TABLET PO SCH ×2 (09:06→17:09)
[2016-10-25] MEDS: VALSARTAN 80 MG TABLET PO SCH (09:06)
[2016-10-25] MEDS: ESCITALOPRAM OXALATE (10 MG) 10 MG TABLET PO SCH (09:07)
[2016-10-25] MEDS: DOXAZOSIN MESYLATE (4 MG) 4 MG TABLET PO SCH (09:07)
[2016-10-25] MEDS ORDERED: ESCI10TA PO (12:10)
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
--- NOTE | 2016-10-25 13:24 | NUR ---
MS RN NOTES A FACILITY ENGINEER FROM [facility] WAS SENT BY DR. GABRIEL TO TALK TO THE PT. AFTER A 15 MINUTE CONVERSATION, THE PT. IS STILL REFUSING TO GO.
--- NOTE | 2016-10-25 13:51 | NUR ---
Social service consult requested by MELVI Wilks for homelessness. Per H&P report by Dr. Gusman, patient is a 71-year old male with a PMHx of encephalopathy, hypertension, esophageal reflex, ESRD, hyperlipidemia, hypothyroid, and anemia. Pt is currently homeless and does not have a place to go. Pt is refusing a SNF and is refusing any other assistance. Patient was admitted to [facility] for infiltrate RLL. SW met with patient at bedside. He presented in an irritable mood, affect was congruent, was guarded, and appearance was disheveled. Pt displayed mild verbal aggression. Patient refused all resources and assistance. He stated that he was not interested in going to a SNF. He stated that he would refuse to leave the hospital until seen by a doctor. He stated that he had no intentions of sharing his discharge and that it was "my business, not yours." SOPHIA informed MELVI Wilks. SW will continue to attempt to engage the patient.
--- NOTE | 2016-10-25 14:07 | NUR ---
MS RN NOTES DR. GABRIEL WAS AGAIN PAGED IN REGARDS TO PT'S DISCHARGE. CURRENTLY AWAITING CALL BACK.
[2016-10-25] MEDS: LEVOFLOXACIN 750 MG /D5W 150ML 750 MG in PREMIX 1 EA IV SCH (14:30)
--- NOTE | 2016-10-25 15:32 | NUR ---
MS RN NOTES DR. GABRIEL RETURNED MY CALL AND STATED "IF PT. DOES NOT WANT TO GO TO THE SNF THEN CALL SECURITY TO ESCORT HIM OUT. HE IS MEDICALLY CLEARED." MADELIN THE CHARGE WAS MADE AWARE.
[2016-10-25 16:00] VITALS: BP 156/70
--- NOTE | 2016-10-25 16:52 | NUR ---
MS RN NOTES ALLISON THE PLANT PACKER AND MADELIN WENT TO TALK TO THE PATIENT IN REGARDS TO HIS DISCHARGE AND WHAT THE DOCTOR SAID. PT STATED THAT HE WILL NOT LEAVE UNTIL HE IS SEEN BY A DOCTOR AND STILL INSISTS THAT HE WILL NOT GO TO A SNF. THE BENEFITS OF BEING DISCHARGED TO THE SNF WERE AGAIN EXPLAINED TO THE PATIENT, BUT HE STILL REFUSES. PT. STATES THAT HE WILL LIKE TO TALK TO MEDICARE AND REFUTE HIS DISCHARGE. ALLISON STATED THAT SHE WILL GIVE THE PT. THE FORMS TO DO SO. SHE LATER CALLED DR. GABRIEL TO NOTIFY HIM OF THE PT'S DECISION AND THAT HE WILL NOT LEAVE UNTIL SEEN BY A DOCTOR. CURRENTLY AWAITING TO HEAR BACK FROM DR. GABRIEL. WILL CONTINUE TO MONITOR AND FOLLOW UP.
[2016-10-25 18:00] VITALS: BP 168/79
--- NOTE | 2016-10-25 18:05 | NUR ---
case management director and charge nurse spoke with patient regarding MD has discharge order today .Patient is alert and oriented, he is ambulatory and independent with adls. He is homeless and he get his hemodialysis at [facility] [phone] every TTHS. Patient refused SNF placement and refused being discharge without talking with the physician. MD was called but not available to see the patient, Per nurse, as per MD patient is cleared and stable for discharge. Patient is appealing his discharge,Important Message from Medicare and Notice of discharge issued to and signed by the patient, faxed to [facility] for review [phone]. Addendum: 10/25/16 at 1834 by ALLISON JOE RN Amended: Links added.
--- NOTE | 2016-10-25 19:03 | NUR ---
MS RN CLOSING NOTES PT. IN STABLE CONDITION. NO COMPLAINTS OF PAIN AT THIS TIME. ALL SAFETY MEASURES IN PLACE. STILL AWAITING TO HEAR BACK FROM DR. GABRIEL. WILL ENDORSE TO NIGHTSHIFT NURSE TO FOLLOW UP AND TREASURE.
--- NOTE | 2016-10-25 19:40 | NUR ---
MS RN NOTE: PATIENT RESTING IN BED, NO ACUTE DISTRESS NOTED. BREATHING EVEN AND UNLABORED, NO SOB NOTED. IV TO LEFT WRIST IN PLACE. AV SHUNT TO SAUNDRA, NO BLEEDING NOTED. BED LOCKED AND IN LOWEST POSITION, CALL LIGHT IN REACH. WILL CONTINUE TO MONITOR.
[2016-10-25] MEDS: POTASSIUM CL. PREMIX PERIPHER. 50 ML IV SCH ×2 (20:19→22:13)
[2016-10-25 20:31] VITALS: BP 137/88
[2016-10-26] VITALS (7 sets, daily range): BP systolic 142–188; BP diastolic 75–87
--- NOTE | 2016-10-26 02:45 | NUR ---
MS RN NOTE: PATIENT SLEEPING IN BED, NO ACUTE DISTRESS NOTED. BREATHING EVEN AND UNLABORED, NO SOB NOTED. BED LOCKED AND IN LOWEST POSITION, CALL LIGHT IN REACH. WILL CONTINUE TO MONITOR.
--- NOTE | 2016-10-26 06:05 | NUR ---
MS RN NOTE: PATIENT RESTING IN BED, NO ACUTE DISTRESS NOTED. BREATHING EVEN AND UNLABORED, NO SOB NOTED. IV TO LEFT WRIST IN PLACE. AV SHUNT TO SAUNDRA, NO BLEEDING NOTED. BED LOCKED AND IN LOWEST POSITION, CALL LIGHT IN REACH. WILL ENDORSE TO DAY NURSE TO CONTINUE WITH PLAN OF CARE.
--- NOTE | 2016-10-26 07:30 | NUR ---
RN MS OPENING NOTES RECEIVED PATIENT IN BED AWAKE, HEAD OF BED ELEVATED, NO SOB OR DISTRESS NOTED. ALERT AND ORIENTED TIMES 1-2, VERBALLY RESPONSIVE AND ABLE TO MAKE NEEDS KNOWN. IV INTACT AND PATENT. KEPT PATIENT CLEAN AND COMFORTABLE IN BED, CALL LIGHT WITHIN PATIENT REACH, WILL CONTINUE TO MONITOR ACCORDINGLY.
[2016-10-26] MEDS: VALSARTAN 80 MG TABLET PO SCH (08:11)
[2016-10-26] MEDS: DOXAZOSIN MESYLATE (4 MG) 4 MG TABLET PO SCH (08:12)
[2016-10-26] MEDS: ESCITALOPRAM OXALATE (10 MG) 10 MG TABLET PO SCH (08:12)
[2016-10-26] MEDS: LEVOTHYROXINE SODIUM 25 MCG TABLET PO SCH (08:13)
[2016-10-26] MEDS: CARVEDILOL 3.125 MG TABLET PO SCH ×2 (08:13→17:00)
[2016-10-26] MEDS: ATORVASTATIN 10 MG TABLET PO SCH ×2 (08:17→20:56)
--- NOTE | 2016-10-26 17:00 | NUR ---
RN NOTES PATIENT RECEIVING DIALYSIS
--- NOTE | 2016-10-26 17:23 | NUR ---
BLOOD PRESSURE MEDICATION HELD DUE TO DIALYSIS
--- NOTE | 2016-10-26 19:30 | NUR ---
RN CLOSING NOTES ALL NEEDS PROVIDED, ATTENDED AND ANTICIPATED. KEPT PATIENT CLEAN AND COMFORTABLE IN BED, CALL LIGHT WITHIN PATIENT REACH , WILL CONTINUE TO MONITOR ACCORDINGLY. ENDORSED TO NEXT SHIFT RN TO CONTINUE CARE
--- NOTE | 2016-10-26 19:40 | NUR ---
MS RN INITIAL NOTES: RECEIVED REPORT FROM SABAS WALLACE. PT IN BED, AWAKE, ONGOING DIALYSIS WHICH STARTED AT 1700. DRAFTER HEATING AND VENTILATING AT BED SIDE. PT A/O X3 C/O 08/16, STATED ITS TOLERABLE. PT ON ROOM AIR, RESPIRATION EVEN AND UNLABORED. LEFT WRIST IV ACCESS PATENT AND FLUSHING WELL, ON HL. R CW HD CATH IN PLACED DRESSING C/D/I. PT REFUSED SCD, EDUCATION PROVIDED TO THE PT. SAFETY PRECAUTIONS FOR FALL INITIATED CALL LIGHT IN REACH, WILL CONTINUE TO MONITOR
--- NOTE | 2016-10-26 20:00 | NUR ---
RN NOTES: COMPLETED DIALYSIS, 3500ML OUTPUT,
[2016-10-26] MEDS: CLONIDINE HCL 0.1 MG TABLET PO PRN (20:57)
--- NOTE | 2016-10-26 21:00 | NUR ---
MS RN NOTES: PRN CLONIDINE ADMINISTERED FOR BP 174/75 HR 87 , ALSO PT REQUESTED TO TAKE HIS LIPITOR STATED HE USUALLY TAKE IT AT NIGHT AND NOT IN AM, LIPITOR 20MG TAB PO ADMINISTERED AT THIS TIME
--- NOTE | 2016-10-26 22:07 | NUR ---
ms rn notes: went to pt's room to recheck bp but pt sleeping, will come back after 30mins for bp recheck
--- NOTE | 2016-10-27 06:32 | NUR ---
ms rn closing notes: pt in bed, awake, denies any pain or discomfort at this time. respiration even and unlabored. right cw hd cath remains in placed with dressing c/d/i. left wrist iv access remains patent and flushing well, on hl. vs remains stable, needs attended. will endorse to day rn for debra.
--- NOTE | 2016-10-27 07:47 | NUR ---
MS RN NOTES: RECEIVED PT IN BED, AWAKE, A/O X3 C/O IN NO APPARENT PAIN OR DISCOMFORT. PT ON ROOM AIR, RESPIRATION EVEN AND UNLABORED. LEFT WRIST IV ACCESS PATENT AND FLUSHING WELL, ON HL. R CW HD CATH IN PLACED DRESSING C/D/I. PT REFUSED SCD, EDUCATION PROVIDED TO THE PT. SAFETY PRECAUTIONS FOR FALL OBSERVED, CALL LIGHT IN REACH, WILL CONTINUE TO MONITOR
[2016-10-27 08:00] VITALS: BP_SYST 158; BP_SYST 165; BP_DIAS 81; BP_DIAS 85
[2016-10-27] MEDS: DOXAZOSIN MESYLATE (4 MG) 4 MG TABLET PO SCH (08:49)
[2016-10-27] MEDS: ESCITALOPRAM OXALATE (10 MG) 10 MG TABLET PO SCH (08:49)
[2016-10-27] MEDS: VALSARTAN 80 MG TABLET PO SCH (08:50)
[2016-10-27] MEDS: CARVEDILOL 3.125 MG TABLET PO SCH ×2 (08:50→16:26)
[2016-10-27] MEDS: LEVOTHYROXINE SODIUM 25 MCG TABLET PO SCH (08:52)
[2016-10-27] MEDS ORDERED: IV SET PRIMARY PUMP SET 1 EA INFUS.SET MC ONE (14:58)
[2016-10-27] MEDS: LEVOFLOXACIN 750 MG /D5W 150ML 750 MG in PREMIX 1 EA IV SCH (15:02)
[2016-10-27 16:00] VITALS: BP 169/81
[2016-10-27] MEDS: CLONIDINE HCL 0.1 MG TABLET PO PRN ×3 (16:26→23:13)
--- NOTE | 2016-10-27 19:03 | NUR ---
MS RN NOTES: PT IN BED, AWAKE, A/O X3 C/O IN NO APPARENT PAIN OR DISCOMFORT. PT ON ROOM AIR, RESPIRATION EVEN AND UNLABORED. LEFT WRIST IV ACCESS PATENT AND FLUSHING WELL, ON HL. R CW HD CATH IN PLACED DRESSING C/D/I. PT REFUSED SCD, EDUCATION PROVIDED TO THE PT. SAFETY PRECAUTIONS FOR FALL OBSERVED, CALL LIGHT IN REACH, WILL CONTINUE TO MONITOR. PT WITH DISCHARGE ORDER, PT AWARE, REFUSING TO HAVE BELONGINGS CHECKED OR PICTURES OF SKIN TAKEN. REFUSES TO SIGN DISCHARGE PAPERWORK WILL ENDORSE FOR CONTINUITY OF CARE
--- NOTE | 2016-10-27 19:38 | NUR ---
ms/rn opening notes Received am rn endorsement regarding patient plan to be dc today but refuse to be dc to to snf placement will coordinate w/ [employer] manager [employer] for grant for dc placement. patient is alert, oreiented x 2 able to verbalize needs, no s/s of sob or distress.will continue to monitor.will attend to needs.
--- NOTE | 2016-10-27 19:40 | NUR ---
ms/rn opening notes patient in bed, hob elevated. on breathing tx provided by rt. no s/s of distress. calm and coperative to care. extensive assistance to be provided at all times. on gtube feeding and iv d5ns at 100 ml/hr. will continue debra.
[2016-10-27 20:00] VITALS: BP 180/89
[2016-10-27 20:29] VITALS: BP 172/93
--- NOTE | 2016-10-27 20:31 | NUR ---
ms/rn notes patient reported pain of 6/10 in left side of back and dizziness at 8/10. b/p re check at 172/93. will give as needed medication for pain and b/p .
[2016-10-27] MEDS: ACETAMINOPHEN 325 MG TABLET PO PRN (20:37)
--- NOTE | 2016-10-27 20:39 | NUR ---
patient refuse to have tyleno 650. mg po.
--- NOTE | 2016-10-27 21:38 | NUR ---
ms/rn notes b/p re check at 169/86 after giving catapress 01. tab po.
[2016-10-27 21:43] VITALS: BP 172/93
--- NOTE | 2016-10-28 06:18 | NUR ---
ms/rn closing notes patient in bed able to sleep during the night. verbalize needs at all times. ambulated safely in the hallway 2x before bedtime. b/p check and monitored due to elevated result. administered prescribed prn for sbp >160. patient tolerate. verbalized needs/ concerns regarding care and medications as patient want to discuss concerns. pictures taken w/ body rash.. iv on left wrist gauge . right arm av shunt,to endorse to am rn regarding continuity of care and dc planning/placement.
--- NOTE | 2016-10-28 07:30 | NUR ---
MS RN RECEIVED ON BED, AWAKE,ALERT,ORIENTED X4,NOT IN ANY FORM OF DISTRESS, RESPIRATIONS EVEN AND UNLABORED,NO SOB NOTED. LUNGS ARE CLEAR,ABDOMEN SOFT,POSITIVE BOWEL SOUNDS, DENIES PAIN AT THIS TIME,ALL NEEDS ATTENDED.
[2016-10-28 08:00] VITALS: BP 178/84
--- NOTE | 2016-10-28 08:30 | NUR ---
MS WALLACE BREAKFAST SERVED,DUE MEDS GIVEN,TOLERATED WELL.
[2016-10-28] MEDS: LEVOTHYROXINE SODIUM 25 MCG TABLET PO SCH (08:44)
[2016-10-28] MEDS: ESCITALOPRAM OXALATE (10 MG) 10 MG TABLET PO SCH (08:45)
[2016-10-28] MEDS: DOXAZOSIN MESYLATE (4 MG) 4 MG TABLET PO SCH (08:45)
[2016-10-28] MEDS: ATORVASTATIN 10 MG TABLET PO SCH (08:45)
[2016-10-28] MEDS: VALSARTAN 80 MG TABLET PO SCH (08:45)
[2016-10-28 08:46] VITALS: BP 160/80
[2016-10-28] MEDS: CARVEDILOL 3.125 MG TABLET PO SCH (08:46)
--- NOTE | 2016-10-28 11:00 | NUR ---
MS RN WAS SEEN BY DR. CHARLEY Tracy/ NETTIE MADE AND CARRIED OUT.
--- NOTE | 2016-10-28 12:40 | NUR ---
MS RN PATIENT WENT HOME, ADVISED TO HAVE A FOLLOW UP CHECK UP W/ PRIMARY ,ALL NEEDS ATTENDED.
== END 2016-10-28 12:35 | disposition home or self-care (01) | DRG 193 ==
LOC: ER 11:57 → MED 14:37 → TELE 16:08 → MED 10-23 08:41
PROVIDERS: ADMIT Internal Medicine Nephrology; ATTEND Internal Medicine Nephrology
PROC: 5A1D60Z (ICD-10-PCS; principal; 2016-10-24)
DX: J15.9 Unspecified bacterial pneumonia (principal); N18.6 End stage renal disease; F32.2 Major depressive disorder, single episode, severe without psychotic features; I12.0 Hypertensive chronic kidney disease with stage 5 chronic kidney disease or end stage renal disease; K21.9 Gastro-esophageal reflux disease without esophagitis; Z99.2 Dependence on renal dialysis; E03.9 Hypothyroidism, unspecified; E78.5 Hyperlipidemia, unspecified; E87.5 Hyperkalemia; Z79.899 Other long term (current) drug therapy; D64.9 Anemia, unspecified; R07.81 Pleurodynia; R78.89 Finding of other specified substances, not normally found in blood
CPT/HCPCS: 36415; 71010-TC; 80048-TC; 80076-TC; 83605-TC; 83735-TC; 84100-TC; 84484-TC; 85025-TC; 87040-TC; 87081-TC; 93970-TC; 97001-TC; A4216; A4606; A6402; J0885; J1956; J3480; Z7610

== ENCOUNTER 2016-11-06 10:50 | Outpatient (CLI) | payer MEDICARE, MEDICAID ==
[~2016-11-06 10:50] MED LIST changes: +ESCI10TA PO
== END 2016-11-06 23:59 | disposition home or self-care (01) ==
LOC: CT 10:50
PROVIDERS: ATTEND Internal Medicine
DX: S09.90XA Unspecified injury of head, initial encounter (principal); G31.89 Other specified degenerative diseases of nervous system; G93.89 Other specified disorders of brain; X58.XXXA Exposure to other specified factors, initial encounter; Y93.89 Activity, other specified; Y92.89 Other specified places as the place of occurrence of the external cause; Y99.8 Other external cause status
CPT/HCPCS: 70450-TC

== ENCOUNTER 2016-11-07 11:12 | Emergency (ER) | payer MEDICARE, MEDICAID ==
[~2016-11-07] VITALS: Ht 177.8 cm; Wt 75.7 kg
[2016-11-07 11:12] VITALS: BP 147/72
== END 2016-11-07 12:26 | disposition home or self-care (01) ==
LOC: ER 11:14
DX: Z00.8 Encounter for other general examination (principal); G93.40 Encephalopathy, unspecified; K21.9 Gastro-esophageal reflux disease without esophagitis; I12.0 Hypertensive chronic kidney disease with stage 5 chronic kidney disease or end stage renal disease; N18.6 End stage renal disease; E78.5 Hyperlipidemia, unspecified; E03.9 Hypothyroidism, unspecified; D64.9 Anemia, unspecified; Z90.89 Acquired absence of other organs; Z90.49 Acquired absence of other specified parts of digestive tract; Z99.2 Dependence on renal dialysis
CPT/HCPCS: 99281; A4606; Z7502; Z7610

== ENCOUNTER 2016-12-20 03:48 | Inpatient (IN) | payer MEDICARE, MEDICAID ==
[~2016-12-20] VITALS: Ht 177.8 cm; Wt 78.0 kg
--- NOTE | 2016-12-20 04:00 | NUR ---
paul called by patient after ground level fall from chair due syncopy x2. Pt has open wound approx 1.0 cm at left side of face lateral to left eye. Patient is aao4, appears in no acute distress, respiration even and unlabored. No sob, no chest pain noted.. Skin is warm to touch and non diaphoretic. Afebrile. Hd cath noted on right chest wall covered with intact dry dressing. Patients alex noted with avc fistula, postive bruit and thrill. Vss. Will cont to monitor
--- NOTE | 2016-12-20 04:05 | NUR ---
DR HEAD AT BEDSIDE
--- NOTE | 2016-12-20 04:15 | NUR ---
pt's wound near eye was cleaned with NS and dressing placed.
--- NOTE | 2016-12-20 04:20 | NUR ---
pt taken for ct of head and cervical spine wo contrast.
--- NOTE | 2016-12-20 04:35 | NUR ---
pt returned from ct
--- NOTE | 2016-12-20 05:00 | NUR ---
lac #20 iv inserted and labs drawn
[2016-12-20 05:01] LABS: BASOPHILS % (AUTO) 0.4 % (0.0-2.0); EOSINOPHILS # (AUTO) 0.2 /CMM (0.0-0.7); EOSINOPHILS % (AUTO) 2.7 % (0.0-6.0); HEMATOCRIT 31 % (39-51); LYMPHOCYTES # (AUTO) 0.6 /CMM (0.8-4.8); LYMPHOCYTES % (AUTO) 7.6 % (20.0-44.0); MEAN CORPUSCULAR HEMOGLOBIN 29 PG (26.0-33.0); MEAN CORPUSCULAR HGB CONC 33 g/dl (31.0-36.0); MEAN CORPUSCULAR VOLUME 88 fL (80-96); MONOCYTES # (AUTO) 1.2 /CMM (0.1-1.30); MONOCYTES % (AUTO) 14.1 % (2.0-12.0); NEUTROPHILS # (AUTO) 6.2 /CMM (1.8-8.9); NEUTROPHILS % (AUTO) 75.2 % (43.0-81.0); PLATELET COUNT (AUTO) 252 /CMM (150-450); RDW COEFFICIENT OF VARIATION 16.4 (11.5-15.0); RED BLOOD CELL COUNT(AUTO) 3.48 MIL/uL (4.5-6.0); WHITE BLOOD COUNT (AUTO) 8.2 K/uL (4.3-11.0)
[2016-12-20 05:11] LABS: CALCIUM, SERUM 7.6 mg/dL (8.5-10.1); CARBON DIOXIDE 30 mmol/L (21-32); CHLORIDE 94 mmol/L (98-107); CREATININE 6.9 mg/dL (0.6-1.3); GLUCOSE 113 mg/dL (74-106); POTASSIUM 4.4 mmol/L (3.5-5.1); SODIUM SERUM 128 mmol/L (136-145); UREA NITROGEN, BLOOD 52 mg/dL (7-18)
[2016-12-20 05:13] LABS: INR 1.06 (0.87-1.13); PROTHROMBIN TIME 11.4 SECS (9.5-12.7)
[2016-12-20 05:17] LABS: ALANINE AMINOTRANSFERASE 44 U/L (12-78); ALBUMIN 2.9 g/dL (3.4-5.0); ALKALINE PHOSPHATASE 176 U/L (46-116); ASPARTATE AMINOTRANSFERASE 25 U/L (15-37); BILIRUBIN,DIRECT 0.1 mg/dL (0.0-0.2); BILIRUBIN,TOTAL 0.4 mg/dL (0.2-1.0); TOTAL PROTEIN, SERUM 7.6 g/dL (6.4-8.2)
[2016-12-20 05:19] LABS: TROPONIN I 0.066 ng/mL (0.00-0.056)
[2016-12-20] MEDS ORDERED: ASPIRIN 325 MG TABLET ONE (05:29)
[2016-12-20] MEDS ORDERED: ASPIRIN 325 MG TABLET PO ONE (05:30)
--- NOTE | 2016-12-20 05:33 | NUR ---
CALLED DR. HOOVER FOR DR. HEAD.
--- NOTE | 2016-12-20 06:15 | NUR ---
PATIENT RECEIVED FROM ER IN GOOD AND STABLE CONDITION, NO SOB, NO RESPIRATORY DISTRESS, SPO2 SAT AT ROOM AIR 96%, DENIES CHEST PAIN, NO DIZZINESS, UNSTEADY GAIT. V/S TAKEN, ORIENTED TO ROOM AND CALL LIGHT, WILL ENDORSE TO AM SHIFT FOR TREASURE.
--- NOTE | 2016-12-20 07:45 | NUR ---
RN OPENING NOTES RECEIVED PATIENT IN BED, ASLEEP, HOB ELEVATED, NO SOB OR DISTRESS NOTED. A/O X 3, VERBALLY RESPONSIVE AND ABLE TO MAKE NEEDS KNOWN. ON TELE MONITOR SR HEART RATE OF 90. IV INTACT AND PATENT. KEPT PATIENT CLEAN AND COMFORTABLE IN BED, CALL LIGHT WITHIN PATIENT REACH. WILL CONTINUE TO MONITOR ACCORDINGLY.
[2016-12-20 08:00] VITALS: BP 151/79
--- NOTE | 2016-12-20 09:45 | NUR ---
RN NOTES PAGED DR. WHITEHEAD FOR ADMITTING ORDERS.
--- NOTE | 2016-12-20 10:50 | NUR ---
RN NOTES RE-PAGED DR. WHITEHEAD FOR ADMITTING ORDERS.
[2016-12-20 12:00] VITALS: BP 140/78
[2016-12-20] MEDS ORDERED: CLONIDINE HCL 0.1 MG TABLET PO PRN (12:00)
--- NOTE | 2016-12-20 12:10 | NUR ---
RN NOTES RECEIVED ADMITTING ORDERS FROM DR. WHITEHEAD.
[2016-12-20] MEDS: SEVELAMER CARBONATE 800 MG TABLET PO SCH ×2 (13:50→17:23)
[2016-12-20] MEDS: CALCIUM ACETATE 667 MG TABLET PO SCH ×2 (13:50→17:23)
[2016-12-20 16:00] VITALS: BP 160/70
[2016-12-20] MEDS: CARVEDILOL 3.125 MG TABLET PO SCH (17:23)
--- NOTE | 2016-12-20 19:32 | NUR ---
RN NOTES ALL NEEDS PROVIDED, ATTENDED, AND ANTICIPATED. KEPT PATIENT CLEAN AND COMFORTABLE IN BED, CALL LIGHT WITHIN PATIENT REACH, WILL CONTINUE TO MONITOR ACCORDINGLY. ENDORSED TO NEXT SHIFT RN TO CONTINUE CARE.
--- NOTE | 2016-12-20 19:33 | NUR ---
RN NOTE RECEIVED REPORT. PT AAOX3, RESTING IN BED COMFORTABLY. DENIES CP/SOB. NO S/S OF ANY DISTRESS AT THIS TIME. IV INTACT AND PATENT, CALL LIGHT I NREACH.W ILL CONT TO MONITOR.
[2016-12-20 20:00] VITALS: BP 150/70
[2016-12-21] VITALS: BP 148/79
[2016-12-21 04:59] VITALS: BP 152/69
--- NOTE | 2016-12-21 06:45 | NUR ---
RN NOTE NO SIGNIFICANT CHANGES OVERNIGHT. PT SLEPT WELL, NO C/O OF ANY PAIN OR DISCOMFORT AT THIS TIME. DENIES CP/SOB/DIZZINESS. TELE SHOWS SR. IV INTACT AND PATENT, WILL F/U WITH DAY SHIFT FOR TREASURE.
--- NOTE | 2016-12-21 07:30 | NUR ---
RN OPENING NOTES RECEIVED PATIENT IN BED, Awake, HOB ELEVATED, NO SOB OR DISTRESS NOTED. A/O X 3, VERBALLY RESPONSIVE AND ABLE TO MAKE NEEDS KNOWN. ON TELE MONITOR SR HEART RATE OF 81. IV INTACT AND PATENT. KEPT PATIENT CLEAN AND COMFORTABLE IN BED, CALL LIGHT WITHIN PATIENT REACH. WILL CONTINUE TO MONITOR ACCORDINGLY
[2016-12-21 07:58] LABS: BASOPHILS % (AUTO) 0.4 % (0.0-2.0); EOSINOPHILS # (AUTO) 0.3 /CMM (0.0-0.7); EOSINOPHILS % (AUTO) 3.3 % (0.0-6.0); HEMATOCRIT 30 % (39-51); HEMOGLOBIN 9.9 g/dL (13.5-17.5); LYMPHOCYTES # (AUTO) 0.7 /CMM (0.8-4.8); MEAN CORPUSCULAR HEMOGLOBIN 29 PG (26.0-33.0); MEAN CORPUSCULAR HGB CONC 33 g/dl (31.0-36.0); MEAN CORPUSCULAR VOLUME 88 fL (80-96); MONOCYTES # (AUTO) 0.9 /CMM (0.1-1.30); NEUTROPHILS # (AUTO) 5.8 /CMM (1.8-8.9); NEUTROPHILS % (AUTO) 75.3 % (43.0-81.0); PLATELET COUNT (AUTO) 252 /CMM (150-450); RED BLOOD CELL COUNT(AUTO) 3.42 MIL/uL (4.5-6.0); WHITE BLOOD COUNT (AUTO) 7.7 K/uL (4.3-11.0)
[2016-12-21 08:00] VITALS: BP 149/79
[2016-12-21 08:19] LABS: CALCIUM, SERUM 7.5 mg/dL (8.5-10.1); CARBON DIOXIDE 27 mmol/L (21-32); CHLORIDE 101 mmol/L (98-107); GLUCOSE 107 mg/dL (74-106); POTASSIUM 5.3 mmol/L (3.5-5.1); SODIUM SERUM 143 mmol/L (136-145); UREA NITROGEN, BLOOD 76 mg/dL (7-18)
[2016-12-21] MEDS: SEVELAMER CARBONATE 800 MG TABLET PO SCH ×3 (08:37→17:00)
[2016-12-21] MEDS: ATORVASTATIN 10 MG TABLET PO SCH (08:37)
[2016-12-21] MEDS: CALCIUM ACETATE 667 MG TABLET PO SCH ×3 (08:38→17:00)
[2016-12-21] MEDS: DOXAZOSIN MESYLATE (4 MG) 4 MG TABLET PO SCH (08:38)
[2016-12-21] MEDS: LEVOTHYROXINE SODIUM 25 MCG TABLET PO SCH (08:38)
[2016-12-21] MEDS: PANTOPRAZOLE 40 MG TABLET.DR PO SCH (08:38)
[2016-12-21] MEDS: CARVEDILOL 3.125 MG TABLET PO SCH ×2 (08:39→17:00)
[2016-12-21] MEDS: VALSARTAN 80 MG TABLET PO SCH (08:40)
[2016-12-21 08:52] LABS: CREATININE 8.9 mg/dL (0.6-1.3)
[2016-12-21 08:53] LABS: PHOSPHORUS 8.3 mg/dL (2.5-4.9)
[2016-12-21] MEDS ORDERED: ESCITALOPRAM OXALATE (10 MG) 10 MG TABLET PO SCH (09:00)
[2016-12-21 10:03] LABS: THYROID STIMULATING HORMONE 0.675 uIU/mL (0.358-3.74)
[2016-12-21] MEDS: ASPIRIN 81 MG TAB.CHEW PO SCH (10:50)
--- NOTE | 2016-12-21 13:50 | NUR ---
RN NOTES PATIENT RECEIVED DIALYSIS. 2 LITERS WERE TAKING OUT.
--- NOTE | 2016-12-21 15:10 | NUR ---
RN NOTES [id number] AND THEY INFORMED ME THAT PATIENT HAS MRSA IN THE NARES. PROTOCOL WAS FOLLOWED.
[2016-12-21 16:00] VITALS: BP 156/78
[2016-12-21] MEDS: MUPIROCIN OINT 2% 22 GM TUBE SCH ×2 (16:10→21:00)
[2016-12-21 20:00] VITALS: BP 162/68
[2016-12-22] VITALS: BP 145/61
[2016-12-22 04:00] VITALS: BP 153/84
[2016-12-22] MEDS: PANTOPRAZOLE 40 MG TABLET.DR PO SCH (05:22)
[2016-12-22] MEDS: LEVOTHYROXINE SODIUM 25 MCG TABLET PO SCH (05:22)
--- NOTE | 2016-12-22 06:30 | NUR ---
STEERER NOTES AWAKE & RESPONSIVE. NOT IN ANY DISTRESS. NO SOB NOTED. DENIES ANY PAIN OR DISCOMFORT AT THIS TIME. ON TELE SR @ 79 WITH IV-HL PATENT & INTACT. CALL LIGHT WITHIN REACH. BED IN LOWEST POSITION. SR UP X 2 FOR SAFETY. WILL ENDORSE TO NEXT SHIFT.
--- NOTE | 2016-12-22 07:00 | NUR ---
WORKFORCE CONSULTANT NOTES F[employer]ERGLASS BOAT FINISHER CAUGHT PT TAKING HIS OWN MEDICATIONS. NOTIFIED PT OF HOSPITAL POLICY REGARDING TAKING THEIR OWN MEDICATIONS WHILE IN THE HOSPITAL. PT REFUSED BAGS TO BE CHECKED. PT STATES " I KNOW WHAT I'M SUPPOSED TO TAKE AND WHAT NOT TO TAKE." PT DENIES TAKING ANY HOME MEDICATIONS. DISPLAY MECHANIC NOTIFIED. WILL CONTINUE TO MONITOR. REPORT GIVEN TO SEGUN RN.
[2016-12-22 07:11] VITALS: BP 164/76
--- NOTE | 2016-12-22 07:29 | NUR ---
CERTIFIED NURSES' AIDE NOTES RECEIVED PATIENT IN BED RESTING. ALERT AND ORIENTED X3. NO ACUTE DISTRESS, NO SOB NOTED. NO COMPLAINS OF PAIN AND DISCOMFORT. IV SITE INTACT AND PATENT. PER SANITARIAN RNLINDY CAUGHT PATIENT TAKING HIS OWN MEDICATIONS AND REFUSED BAG TO BE CHECKED, INFORMED PATIENT ABOUT HOSPITALS POLICY REGARDING TAKING OWN MEDICATIONS WHILE IN THE HOSPITAL, SENIOR DOT NET DEVELOPER AWARE. BED IN LOWEST POSITION, SIDERAILS UP X2, CALL LIGHT WITHIN REACH. WILL CONTINUE TO MONITOR ACCORDINGLY.
[2016-12-22 08:00] VITALS: BP 164/76
[2016-12-22] MEDS: CALCIUM ACETATE 667 MG TABLET PO SCH ×3 (09:11→17:43)
[2016-12-22] MEDS: SEVELAMER CARBONATE 800 MG TABLET PO SCH ×3 (09:11→17:42)
[2016-12-22] MEDS: ASPIRIN 81 MG TAB.CHEW PO SCH (09:16)
[2016-12-22] MEDS: DOXAZOSIN MESYLATE (4 MG) 4 MG TABLET PO SCH (09:17)
[2016-12-22] MEDS: CARVEDILOL 3.125 MG TABLET PO SCH ×2 (09:18→17:43)
[2016-12-22] MEDS: VALSARTAN 80 MG TABLET PO SCH (09:19)
[2016-12-22] MEDS: ATORVASTATIN 10 MG TABLET PO SCH (09:20)
[2016-12-22] MEDS: MUPIROCIN OINT 2% 22 GM TUBE SCH ×2 (09:23→20:06)
[2016-12-22] MEDS ORDERED: ACETAMINOPHEN 325 MG TABLET PO PRN (13:30)
[2016-12-22 16:00] VITALS: BP 151/78
--- NOTE | 2016-12-22 19:00 | NUR ---
RN CLOSING NOTES PATIENT IN BED RESTING. NO ACUTE DISTRESS, NO SOB NOTED. NO CHANGE OF CONDITION. DENIES PAIN OR DISCOMFORT. ALL NEEDS ATTENDED AND PROVIDED. BED IN LOWEST POSITION, SIDERAILS UP X2. CALL LIGHT WITHIN REACH. ENDORSED TO TRAIN OPERATIONS MANAGER RN FOR CONTINUITY OF CARE.
--- NOTE | 2016-12-22 19:15 | NUR ---
RN NOTE RECEIVED REPORT. PT AAOX4, NO C/O ANY PAIN OR DISCOMFORT. DENIES CP/SOB. INFORMED PT ABOUT HOSPITAL POLICY ON TAKING HOME MEDICATIONS. HE REFUSES TAKING THEM. IV INTACT AND PATENT, SAFETY PRECUATIONS RENDERED. WILL CONT TO MONITOR.
[2016-12-22 20:07] VITALS: BP 149/76
--- NOTE | 2016-12-23 02:00 | NUR ---
RN NOTE PT RESTING COMFORTABLY IN BED WITH EYES CLOSED. NO DISTRESS NOTED AT THIS TIME. WILL MONITOR.
--- NOTE | 2016-12-23 06:42 | NUR ---
RN NOTE NO SIGNIFICANT CHANGES OVERNIGHT. PT AAOX4, DENIES CP/SOB AT THIS TIME. NO S/S OF ANY DISTRESS. IV INTACT AND PATENT S/L. SAFETY AND COMFORT MEASURES RENDERED. WILL F/U WITH DAY SHIFT FOR TREASURE.
[2016-12-23] MEDS: LEVOTHYROXINE SODIUM 25 MCG TABLET PO SCH (06:55)
[2016-12-23] MEDS: PANTOPRAZOLE 40 MG TABLET.DR PO SCH (06:55)
[2016-12-23 08:00] VITALS: BP 158/81
[2016-12-23] MEDS: DOXAZOSIN MESYLATE (4 MG) 4 MG TABLET PO SCH (08:58)
[2016-12-23] MEDS: CALCIUM ACETATE 667 MG TABLET PO SCH ×3 (08:58→17:36)
[2016-12-23] MEDS: SEVELAMER CARBONATE 800 MG TABLET PO SCH ×3 (08:59→17:36)
[2016-12-23] MEDS: ASPIRIN 81 MG TAB.CHEW PO SCH (08:59)
[2016-12-23] MEDS: ATORVASTATIN 10 MG TABLET PO SCH (08:59)
[2016-12-23] MEDS: VALSARTAN 80 MG TABLET PO SCH (08:59)
[2016-12-23] MEDS: CARVEDILOL 3.125 MG TABLET PO SCH ×2 (08:59→17:37)
[2016-12-23] MEDS: AMLODIPINE BESYLATE 5 MG TABLET PO SCH (08:59)
[2016-12-23] MEDS: MUPIROCIN OINT 2% 22 GM TUBE SCH ×2 (09:00→21:29)
--- NOTE | 2016-12-23 15:55 | NUR ---
drive worker met with patient at bedside. Patient was oriented to place, self, and situation. Patient's mood and affect were irritable. Per patient he is homeless and has been living in a motel. Patient stated, that he has no family and did not want to add anyone as an emergency contact. Per patient, no hx of drug or alcohol abuse. Patient denied visual and auditory hallucinations. Patient denied suicidal and homicidal ideations. Per patient, no hx of psychiatric hospitalizations. drive worker asked if he would want longterm placement patient refused longterm placement and stated, "I need help medically, and if they cannot help me here than they can send me somewhere else." drive worker asked patient where he wants to be discharged when he is medically cleared and patient stated, "I cannot give you an answer until they answer my questions about why this happened to me." drive worker will follow-up with patient. drive worker informed patient that she is available if needed.
[2016-12-23 16:00] VITALS: BP 159/79
--- NOTE | 2016-12-23 19:03 | NUR ---
END OF SHIFT PATIENT STABLE AT END OF SHIFT, BREATHING AND LOC WNL. NO COMPLAINTS OF PAIN. PATIENT ROUNDING DONE Q2H AND PRN. PATIENT VERBALIZES UNDERSTANDING OF EDUCATION PROVIDED. NO FALLS, NO NEW SKIN BREAK DOWN. LAC IV PATENT. ISOLATION PRECAUTIONS OBSERVED. CALL LIGHT IN REACH. WILL ENDORSE TO NIGHT NURSE
--- NOTE | 2016-12-23 19:30 | NUR ---
RN NOTE; RECEIVED PT SITTING AT THE EDGE OF THE BED. BREATHING EVENLY. NO SOB. NO DISTRESS. SKIN WARM AND DRY. HD CATH ON L CHEST INTACT. BERENICE SHUNT W/ NO APPARENT COMPLICATIONS . NO C/O PAIN OR DISCOMFORT. SAFETY MEASURES AND FALL PREVENTION WERE EXPLAINED TO THE PT AND PT WAS INSTRUCTED TO USE THE CALL LIGHT ANS ASK FOR ASSISTANCE AT ANY TIME TO PREVENT FALL . PT VERBALIZED UNDERSTANDING. CALL LIGHT WITHIN REACH. WILL CONT TO MONITOR.
[2016-12-23 20:00] VITALS: BP 158/72
--- NOTE | 2016-12-24 06:54 | NUR ---
RN NOTE; PT AWAKE AND RESPONSIVE. BREATHING EVENLY. NO SOB. NO C/O PAIN OR DISCOMFORT. NOTED W/ IV LINE PULLED OUT. TO INSERT A NEW LINE. NEEDS ATTENDED. CALL LIGHT WITHIN REACH. WILL C ONT TO MONITOR AND WILL ENDORSE TO AM SHIFT FOR TREASURE.
[2016-12-24] MEDS: LEVOTHYROXINE SODIUM 25 MCG TABLET PO SCH (07:02)
[2016-12-24] MEDS: PANTOPRAZOLE 40 MG TABLET.DR PO SCH (07:02)
--- NOTE | 2016-12-24 07:05 | NUR ---
RECEIVED PT IN BED, AWAKE, A/O X3. PT SHOWS NO SIGNS OF DISTRESS OR PAIN. PT HAS R ARM AV SHUNT AND R CHEST HD CATH. BED IS IN LOW AND LOCKED POSITION, SIDE RAILS UP X2 AND CALL LIGHT IS IN REACH. WILL CONTINUE TO MONITOR.
--- NOTE | 2016-12-24 07:15 | NUR ---
RN NOTE; PT REFUSED IV INSERTION AT THIS TIME. REPORT GIVEN TO DAY SHIFT NURSE FOR TREASURE AND TRIAL TO INSERT AN IV LINE,
[2016-12-24 08:00] VITALS: BP 160/77
[2016-12-24] MEDS: ASPIRIN 81 MG TAB.CHEW PO SCH (08:06)
[2016-12-24] MEDS: SEVELAMER CARBONATE 800 MG TABLET PO SCH (08:06)
[2016-12-24] MEDS: DOXAZOSIN MESYLATE (4 MG) 4 MG TABLET PO SCH (08:06)
[2016-12-24] MEDS: AMLODIPINE BESYLATE 5 MG TABLET PO SCH (08:07)
[2016-12-24] MEDS: VALSARTAN 80 MG TABLET PO SCH (08:07)
[2016-12-24] MEDS: ATORVASTATIN 10 MG TABLET PO SCH (08:07)
[2016-12-24] MEDS: CALCIUM ACETATE 667 MG TABLET PO SCH (08:07)
[2016-12-24] MEDS: CARVEDILOL 3.125 MG TABLET PO SCH (08:08)
[2016-12-24] MEDS: MUPIROCIN OINT 2% 22 GM TUBE SCH (08:08)
[2016-12-24] MEDS ORDERED: hydrALAZINE HCL 50 MG TABLET PO SCH (09:00)
[2016-12-24 09:30] VITALS: BP 159/71
[2016-12-24] MEDS ORDERED: HYDR-4077 PO (10:56)
--- NOTE | 2016-12-24 11:23 | NUR ---
merchandise worker met with patient at bedside. Patient's mood and affect are irritable. Patient is still refusing SNF placement and assisted placement. merchandise worker asked the patient where he would like to be discharged. Patient stated, "ask the doctor he will tell you." merchandise worker asked patient if there was anything she could help him with and asked again if he wanted assisted placement. Patient refused and refused to speak to the psych social worker anymore. Patient refused all resources provided to him and yelled "get those papers out of here!. I don't want resources!" Patient refused to sign the homeless waiver form and yelled "I'm not signing anything!." merchandise worker gave the homeless waiver form to charge nurse Sahil to see if they could get patient to sign. merchandise worker will follow-up. Addendum: 12/24/16 at 1300 by LORAINE CORTES merchandise worker left resources with patient.
--- NOTE | 2016-12-24 12:00 | NUR ---
RN NOTES PATIENT WITH DISCHARGE ORDERS PATIENT AWARE, REFUSED TO GO TO SNF AND REFUSED TO SIGN HOMELESS WAIVER, PATIENT ALSO REFUSES TO HAVE PICTURES OF SKIN TO BE TAKEN, NURSING EDUCATION REINFORCED, WILL CONTINUE TO ASSIST WITH DISCHARGE PROCESS
--- NOTE | 2016-12-24 13:02 | NUR ---
RN NOTES PATIENT LEFT UNIT, NO RESPIRATORY DISTRESS OR S/S OF PAIN, REFUSED TO SIGN PAPERWORK
--- NOTE | 2016-12-24 13:02 | NUR ---
PT WAS DISCHARGED. PT REFUSED TO SIGN DISCHARGE ORDERS AND HOMELESS PLACEMENT REFUSAL FORM BEFORE LEAVING THE UNIT. PT REFUSED TO HAVE WOUND PICTURES TAKEN. CHARGE NURSE WAS NOTIFIED.
== END 2016-12-24 13:00 | disposition home or self-care (01) | DRG 314 ==
LOC: ER 03:50 → TELE 05:40 → MED 12-22 09:50
PROVIDERS: ADMIT Internal Medicine; ATTEND Internal Medicine
PROC: 5A1D60Z (ICD-10-PCS; principal; 2016-12-21)
DX: I95.9 Hypotension, unspecified (principal); N18.6 End stage renal disease; G93.40 Encephalopathy, unspecified; E87.1 Hypo-osmolality and hyponatremia; F32.3 Major depressive disorder, single episode, severe with psychotic features; I12.0 Hypertensive chronic kidney disease with stage 5 chronic kidney disease or end stage renal disease; Z99.2 Dependence on renal dialysis; E03.9 Hypothyroidism, unspecified; E78.5 Hyperlipidemia, unspecified; E86.0 Dehydration; F29 Unspecified psychosis not due to a substance or known physiological condition; K21.9 Gastro-esophageal reflux disease without esophagitis; Z59.0 Homelessness; S00.93XA Contusion of unspecified part of head, initial encounter; W07.XXXA Fall from chair, initial encounter; Y93.9 Activity, unspecified; Y92.9 Unspecified place or not applicable; Y99.9 Unspecified external cause status; R78.89 Finding of other specified substances, not normally found in blood
CPT/HCPCS: 36415; 70450-TC; 71010-TC; 72125-TC; 80048-TC; 80061-TC; 80076-TC; 83735-TC; 84100-TC; 84439-TC; 84443-TC; 84484-TC; 85025-TC; 85730-TC; 87081-TC; 90935-TC; 93307-TC; A4606; A6402; Z7610

== ENCOUNTER 2017-01-21 17:26 | Inpatient (IN) | payer MEDICARE, MEDICAID ==
[~2017-01-21] VITALS: Ht 177.8 cm; Wt 73.9 kg
[~2017-01-21 17:26] MED LIST changes: +HYDR-4077 PO
--- NOTE | 2017-01-21 17:26 | NUR ---
Note undone in EDM - 01/21/17 at 1848 by SHEKHAR MID STERNAL CHEST PAIN, NON RADIATING X 2 MONTHS. NAD NOTED. PT AAO X4, AMB WITH STEADY GAIT. RR EVEN AND UNLABORED. VSS. DR STEINER AT BEDSIDE FOR EVAL.
--- NOTE | 2017-01-21 17:26 | NUR ---
MID STERNAL CHEST PAIN, NON RADIATING X 4 MONTHS, ALSO STATED HAD SYNCOPAL EPISODE X 3 DAYS AGO AND DID NOT SEEK ANY MEDICAL ATTENTION. NAD NOTED. PT AAO X4, AMB WITH STEADY GAIT. RR EVEN AND UNLABORED. DR STEINER AT BEDSIDE FOR EVAL. PT PLACED IN GOWN AND MONITOR.
[2017-01-21 18:15] LABS: EOSINOPHILS # (AUTO) 0.1 /CMM (0.0-0.7); HEMOGLOBIN 9.6 g/dL (13.5-17.5); MEAN CORPUSCULAR HEMOGLOBIN 29 PG (26.0-33.0); MONOCYTES # (AUTO) 0.8 /CMM (0.1-1.30); MONOCYTES % (AUTO) 10.5 % (2.0-12.0)
[2017-01-21] MEDS ORDERED: ESCI5TAB PO (18:16)
[2017-01-21 18:17] LABS: BASOPHILS % (AUTO) 0.3 % (0.0-2.0); EOSINOPHILS % (AUTO) 1.8 % (0.0-6.0); HEMATOCRIT 30 % (39-51); LYMPHOCYTES # (AUTO) 0.5 /CMM (0.8-4.8); LYMPHOCYTES % (AUTO) 6.1 % (20.0-44.0); MEAN CORPUSCULAR HGB CONC 32 g/dl (31.0-36.0); MEAN CORPUSCULAR VOLUME 91 fL (80-96); NEUTROPHILS # (AUTO) 6.4 /CMM (1.8-8.9); NEUTROPHILS % (AUTO) 81.3 % (43.0-81.0); PLATELET COUNT (AUTO) 261 /CMM (150-450); RDW COEFFICIENT OF VARIATION 16.5 (11.5-15.0); RED BLOOD CELL COUNT(AUTO) 3.31 MIL/uL (4.5-6.0); WHITE BLOOD COUNT (AUTO) 7.8 K/uL (4.3-11.0)
--- NOTE | 2017-01-21 18:26 | NUR ---
PATIENT WILL BE ADMITTED INTO [place] [id number].
[2017-01-21 18:28] LABS: INR 1.07 (0.87-1.13); PROTHROMBIN TIME 11.1 SECS (9.5-12.7)
[2017-01-21 18:40] LABS: CALCIUM, SERUM 8.3 mg/dL (8.5-10.1); CARBON DIOXIDE 22 mmol/L (21-32); CHLORIDE 102 mmol/L (98-107); CREATININE 5.3 mg/dL (0.6-1.3); GLUCOSE 88 mg/dL (74-106); POTASSIUM 4.2 mmol/L (3.5-5.1); SODIUM SERUM 138 mmol/L (136-145); UREA NITROGEN, BLOOD 48 mg/dL (7-18)
[2017-01-21 18:45] LABS: ALANINE AMINOTRANSFERASE 20 U/L (12-78); ALKALINE PHOSPHATASE 143 U/L (46-116); ASPARTATE AMINOTRANSFERASE 20 U/L (15-37); BILIRUBIN,DIRECT 0.1 mg/dL (0.0-0.2); BILIRUBIN,TOTAL 0.4 mg/dL (0.2-1.0); TOTAL PROTEIN, SERUM 7.4 g/dL (6.4-8.2)
[2017-01-21 18:48] LABS: TROPONIN I 0.069 ng/mL (0.00-0.056)
--- NOTE | 2017-01-21 18:52 | NUR ---
REPORT GIVEN TO CLAUS RUSS RN FOR TREASURE
--- NOTE | 2017-01-21 18:53 | NUR ---
PATIENT WILL GO TO ROOM 118 PER NURSING SUP
--- NOTE | 2017-01-21 19:26 | NUR ---
CALLED [facility], DR WHITEHEAD WAS PAGED.
[2017-01-21] MEDS ORDERED: ASPIRIN 81 MG TAB.CHEW ONE (19:54)
[2017-01-21] MEDS ORDERED: ASPIRIN 81 MG TAB.CHEW PO ONE (20:00)
--- NOTE | 2017-01-21 20:00 | NUR ---
RN ADMITTING NOTES PATIENT ARRIVED ON UNIT VIA GURNEY FROM ER TO ROOM 118-1. REPORT RECEIVED FROM FRANKIE NICOLAS RN. PATIENT A/A/O X3, ABLE TO MAKE NEEDS KNOWN. NO C/O DIFFICULTY BREATHING OR SOB, ON ROOM AIR. ON TELE SINUS RHYTHM. DENIES ANY CHEST PAIN OR DISCOMFORT @ THIS TIME. C/O HEADACHE. LEFT AC IV #20 INTACT AND PATENT, SALINE LOCK. PATIENT ABLE TO AMBULATE. ALL NEEDS MET AND ANTICIPATED. SAFETY MEASURES IN PLACE. SIDE RAILS UP, BED LOCKED AND IN LOWEST POSITION, CALL LIGHT WITHIN REACH. WILL CONTINUE TO MONITOR. Addendum: 01/22/17 at 0347 by JASKARAN PERKINS RN RIGHT CHEST HD CATH W/ DRESSING CDI.
[2017-01-21 20:30] VITALS: BP 165/72
[2017-01-21 20:38] VITALS: BP 165/72
[2017-01-21] MEDS: CLONIDINE HCL 0.1 MG TABLET PO PRN (20:42)
--- NOTE | 2017-01-21 22:31 | NUR ---
RN NOTES: PATIENT STARTED TO BE ANXIOUS AND SCREAMING COMPLAINING OF VERY BAD LEG CRAMPS. CALLED CROWNING HAMMER OPERATOR MD DR WHITEHEAD RELAYED PATIENT'S CONCERN AND LAB RESULTS. "NO MED" PER MD. PATIENT AWARE. CONTINUOUSLY MONITORED PT.
[2017-01-22] VITALS (7 sets, daily range): BP systolic 113–177; BP diastolic 71–80
--- NOTE | 2017-01-22 00:10 | NUR ---
RN NOTES PATIENT C/O CHEST PAIN AND HEADACHE. BP 177/80, HR 81. PAGED AND SPOKE W/ DR WHITEHEAD, ON-CALL MD. PER MD, NO ORDER AND "DON'T BOTHER ME." WILL CONTINUE TO MONITOR PATIENT.
--- NOTE | 2017-01-22 03:15 | NUR ---
RN NOTES PATIENT FOUND TO HAVE HOME MEDS @ BEDSIDE. REFUSED TO HAND OVER THE MEDS AND GOT ANGRY AND STARTED YELLING.
[2017-01-22 06:41] LABS: BASOPHILS % (AUTO) 0.6 % (0.0-2.0); EOSINOPHILS # (AUTO) 0.2 /CMM (0.0-0.7); EOSINOPHILS % (AUTO) 2.5 % (0.0-6.0); HEMATOCRIT 30 % (39-51); HEMOGLOBIN 9.9 g/dL (13.5-17.5); LYMPHOCYTES # (AUTO) 0.5 /CMM (0.8-4.8); LYMPHOCYTES % (AUTO) 6.7 % (20.0-44.0); MEAN CORPUSCULAR HEMOGLOBIN 29 PG (26.0-33.0); MEAN CORPUSCULAR HGB CONC 33 g/dl (31.0-36.0); MEAN CORPUSCULAR VOLUME 88 fL (80-96); MONOCYTES # (AUTO) 0.9 /CMM (0.1-1.30); MONOCYTES % (AUTO) 13.2 % (2.0-12.0); NEUTROPHILS # (AUTO) 5.5 /CMM (1.8-8.9); PLATELET COUNT (AUTO) 229 /CMM (150-450); RDW COEFFICIENT OF VARIATION 16.5 (11.5-15.0); RED BLOOD CELL COUNT(AUTO) 3.41 MIL/uL (4.5-6.0); WHITE BLOOD COUNT (AUTO) 7.1 K/uL (4.3-11.0)
[2017-01-22 06:50] LABS: CALCIUM, SERUM 8.3 mg/dL (8.5-10.1); CARBON DIOXIDE 18 mmol/L (21-32); CHLORIDE 103 mmol/L (98-107); CREATININE 6.8 mg/dL (0.6-1.3); GLUCOSE 105 mg/dL (74-106); SODIUM SERUM 137 mmol/L (136-145); UREA NITROGEN, BLOOD 65 mg/dL (7-18)
[2017-01-22 06:53] LABS: TROPONIN I 0.087 ng/mL (0.00-0.056)
--- NOTE | 2017-01-22 07:05 | NUR ---
RN INITIAL NOTE PATIENT RECEIVED IN BED, SLEEPING. EASILY AROUSED. NO S/S OF PAIN OR DISCOMFORT. SINUS RHYTHM ON TELE MONITOR. RESPIRATIONS ARE EVEN AND UNLABORED. NO S/S OF RESPIRATORY DISTRESS OR SOB. SATING WELL ON ROOM AIR. IV SITE FLUSHED, PATENT. SKIN IS WARM AND DRY TO TOUCH. SAFETY PRECAUTIONS IMPLEMENTED, BED IN LOCKED, LOW POSITION. TWO SIDE RAILS UP. WILL CONTINUE TO MONITOR CLOSELY.
--- NOTE | 2017-01-22 07:16 | NUR ---
RN CLOSING NOTES PATIENT SLEEPING IN BED. NO ACUTE RESPIRATORY DISTRESS NOTED THROUGHOUT SHIFT. REMAINED ON TELE SINUS RHYTHM IN THE 80S. NO SIGNIFICANT CHANGES DURING SHIFT. BEHAVIORAL ISSUES NOTED. ALL NEEDS MET, ALL DUE MEDS GIVEN. WILL ENDORSE TREASURE TO AM NURSE.
[2017-01-22] MEDS: CALCIUM ACETATE 667 MG TABLET PO SCH ×3 (07:43→18:23)
[2017-01-22] MEDS: PANTOPRAZOLE 40 MG TABLET.DR PO SCH (07:43)
[2017-01-22] MEDS: LEVOTHYROXINE SODIUM 25 MCG TABLET PO SCH (07:43)
[2017-01-22] MEDS: SEVELAMER CARBONATE 800 MG TABLET PO SCH ×3 (07:43→18:23)
[2017-01-22] MEDS: ESCITALOPRAM OXALATE (10 MG) 10 MG TABLET PO SCH (09:47)
[2017-01-22] MEDS: ATORVASTATIN 10 MG TABLET PO SCH (09:47)
[2017-01-22] MEDS: VALSARTAN 80 MG TABLET PO SCH (09:48)
[2017-01-22] MEDS: CARVEDILOL 3.125 MG TABLET PO SCH ×2 (09:48→18:24)
[2017-01-22] MEDS: DOXAZOSIN MESYLATE (4 MG) 4 MG TABLET PO SCH (09:49)
[2017-01-22] MEDS ORDERED: ACETAMINOPHEN 325 MG TABLET PO PRN (14:30)
[2017-01-22] MEDS: IBUPROFEN 400 MG TABLET PO PRN (15:31)
--- NOTE | 2017-01-22 19:10 | NUR ---
RN OPENING NOTES REPORT RECEIVED FROM ISELA Gutierrez RN. PATIENT A/A/O X3, ABLE TO MAKE NEEDS KNOWN. NO C/O DIFFICULTY BREATHING OR SOB, ON ROOM AIR. ON TELE SINUS RHYTHM IN THE 80S. DENIES ANY CHEST PAIN OR DISCOMFORT @ THIS TIME. LEFT AC IV #20 INTACT AND PATENT, SALINE LOCK. PATIENT ABLE TO AMBULATE. SAFETY MEASURES IN PLACE, SIDE RAILS UP, BED LOCKED AND IN LOWEST POSITION, CALL LIGHT WITHIN REACH. ALL NEEDS ANTICIPATED, WILL CONTINUE TO MONITOR.
[2017-01-22] MEDS: HEPARIN SODIUM, PORCINE 5000 UNITS/1 ML VIAL SQ SCH (20:51)
[2017-01-23] VITALS: BP_SYST 166; BP_SYST 79; BP_DIAS 79
[2017-01-23] MEDS: CLONIDINE HCL 0.1 MG TABLET PO PRN (00:23)
[2017-01-23 04:00] VITALS: BP 154/76
[2017-01-23 06:42] LABS: BASOPHILS % (AUTO) 0.8 % (0.0-2.0); EOSINOPHILS # (AUTO) 0.1 /CMM (0.0-0.7); EOSINOPHILS % (AUTO) 2.4 % (0.0-6.0); HEMATOCRIT 30 % (39-51); LYMPHOCYTES # (AUTO) 0.5 /CMM (0.8-4.8); LYMPHOCYTES % (AUTO) 8.2 % (20.0-44.0); MEAN CORPUSCULAR HEMOGLOBIN 30 PG (26.0-33.0); MEAN CORPUSCULAR HGB CONC 34 g/dl (31.0-36.0); MEAN CORPUSCULAR VOLUME 87 fL (80-96); MONOCYTES # (AUTO) 0.8 /CMM (0.1-1.30); MONOCYTES % (AUTO) 14.4 % (2.0-12.0); NEUTROPHILS # (AUTO) 4.1 /CMM (1.8-8.9); NEUTROPHILS % (AUTO) 74.2 % (43.0-81.0); PLATELET COUNT (AUTO) 178 /CMM (150-450); RDW COEFFICIENT OF VARIATION 16.3 (11.5-15.0); RED BLOOD CELL COUNT(AUTO) 3.39 MIL/uL (4.5-6.0); WHITE BLOOD COUNT (AUTO) 5.6 K/uL (4.3-11.0)
--- NOTE | 2017-01-23 07:20 | NUR ---
ENTREPRENEURIAL FINANCE PROFESSOR NOTE: RECEIVED PATIENT WATCHING TV IN BED A&OX3. ON TELE WITH SR 81. R CHEST HD CATH NOTED. ON RA WITH RESPIRATIONS EVEN AND UNLABORED WITH NO SOB NOTED. L AC #20 SL INTACT AND PATENT. BED LOW, LOCKED WITH CALL LIGHT WITHIN REACH. WILL CONT TO MONITOR.
--- NOTE | 2017-01-23 07:20 | NUR ---
RN CLOSING NOTES PATIENT SLEEPING IN BED. NO ACUTE RESPIRATORY DISTRESS NOTED THROUGHOUT SHIFT. REMAINED ON TELE SINUS RHYTHM IN THE 80S. NO SIGNIFICANT CHANGES DURING SHIFT. NO BEHAVIORAL ISSUES NOTED. ALL NEEDS MET, ALL DUE MEDS GIVEN. WILL ENDORSE TREASURE TO AM NURSE.
[2017-01-23] MEDS ORDERED: PANTOPRAZOLE 40 MG TABLET.DR PO SCH (07:30)
[2017-01-23] MEDS: IBUPROFEN 400 MG TABLET PO PRN ×2 (07:50→18:53)
[2017-01-23] MEDS: PANTOPRAZOLE 40 MG TABLET.DR PO SCH (07:50)
[2017-01-23] MEDS: SEVELAMER CARBONATE 800 MG TABLET PO SCH ×3 (07:51→18:21)
[2017-01-23] MEDS: CALCIUM ACETATE 667 MG TABLET PO SCH ×3 (07:51→18:21)
[2017-01-23] MEDS: LEVOTHYROXINE SODIUM 25 MCG TABLET PO SCH (07:51)
[2017-01-23 08:00] VITALS: BP 165/70
[2017-01-23 08:35] LABS: CALCIUM, SERUM 8.6 mg/dL (8.5-10.1); CARBON DIOXIDE 23 mmol/L (21-32); CHLORIDE 98 mmol/L (98-107); CREATININE 6.8 mg/dL (0.6-1.3); GLUCOSE 109 mg/dL (74-106); MAGNESIUM 2.1 mg/dL (1.8-2.4); PHOSPHORUS 7.1 mg/dL (2.5-4.9); POTASSIUM 4.6 mmol/L (3.5-5.1); SODIUM SERUM 135 mmol/L (136-145); UREA NITROGEN, BLOOD 56 mg/dL (7-18)
[2017-01-23] MEDS: CARVEDILOL 3.125 MG TABLET PO SCH ×2 (08:55→18:21)
[2017-01-23] MEDS: ATORVASTATIN 10 MG TABLET PO SCH (08:55)
[2017-01-23] MEDS: DOXAZOSIN MESYLATE (4 MG) 4 MG TABLET PO SCH (08:56)
[2017-01-23] MEDS: VALSARTAN 80 MG TABLET PO SCH (08:56)
[2017-01-23] MEDS: ASPIRIN 81 MG TAB.CHEW PO SCH (08:57)
[2017-01-23] MEDS: HEPARIN SODIUM, PORCINE 5000 UNITS/1 ML VIAL SQ SCH ×2 (09:00→21:02)
--- NOTE | 2017-01-23 09:00 | NUR ---
DAIRY HUSBANDRY TEACHER NOTE: PATIENT REFUSED 0900 HEPARIN. EDUCATED PT ON RISKS AND BENEFITS BUT PT STILL REFUSED. PER PT, THE DOCTOR IS TRYING TO MAKE MONEY OFF OF ME AND I DON'T NEED IT SINCE I'M ALREADY TAKING ASPIRIN. WILL CONT TO MONITOR.
--- NOTE | 2017-01-23 09:15 | NUR ---
MATERIALS SCHEDULER NOTE: PT AT BEDSIDE. RECOMMENDED STAND BY ASSIST AND [facility]. PER PT, PATIENT REFUSED JUNG.
[2017-01-23] MEDS: ESCITALOPRAM OXALATE (10 MG) 10 MG TABLET PO SCH (09:41)
[2017-01-23 12:00] VITALS: BP 162/88
[2017-01-23] MEDS ORDERED: ASPI81TA2 PO (14:30)
[2017-01-23] MEDS ORDERED: ACET325T53 PO (14:30)
[2017-01-23 16:00] VITALS: BP 167/77
--- NOTE | 2017-01-23 19:30 | NUR ---
MANUSCRIPT READER NOTE: NO ACUTE CHANGES DURING SHIFT. PATIENT REMAINED A&OX3. ON TELE WITH SR 81. R CHEST HD CATH NOTED. L AC #20 SL INTACT AND PATENT. BED LOW, LOCKED WITH CALL LIGHT WITHIN REACH. ORDERS CARRIED OUT. REPORT GIVEN TO UNLOADER NURSE FOR TREASURE.
--- NOTE | 2017-01-23 19:45 | NUR ---
PT RECEIVED IN NO ACUTE DISTRESS. PT IS A/O X3 WITH SOME TENSION. PT IS ON TELE SR 81. CONTINENT AND ABLE TO GO TO RESTROOM BY HIMSELF WITH STANDBY ASSISTANCE. ANURIC. PT IS ON A RENAL STANDARD DIET. HAS A LAC 20G SL AND A RIGHT CHEST HD CATH. SAFETY/COMFORT MEASURES TO BE ENSURED DURING THE SHIFT. WILL CONTINUE TO MONITOR FOR CHANGES.
[2017-01-23 20:00] VITALS: BP 164/73
[2017-01-24] VITALS: BP 167/78
[2017-01-24] MEDS: CLONIDINE HCL 0.1 MG TABLET PO PRN (00:09)
[2017-01-24 00:29] VITALS: BP 167/78
[2017-01-24] MEDS: IBUPROFEN 400 MG TABLET PO PRN ×2 (02:11→11:54)
[2017-01-24 04:00] VITALS: BP 159/73
[2017-01-24 04:15] VITALS: BP 159/73
--- NOTE | 2017-01-24 06:46 | NUR ---
HOME HEALTH REGISTERED NURSE CLOSING NOTE PT REMAINS IN NO ACUTE DISTRESS AT THE END OF THE SHIFT. PT IS A/O X3 WITH AGITATION AT TIMES. ON TELE WITH SR. PT IS ABLE TO WALK TO THE BATHROOM BUT IS ANURIC. PT HAS A LAC 20G WELL A RIGHT CHEST HD CATH. MOTRIN WAS GIVEN AT 0220 AND TOLERATED WELL. COMFORT AND SAFETY MEASURES WERE ENSURED DURING THE SHIFT. WILL ENDORSE CARE TO AM NURSE.
[2017-01-24 08:00] VITALS: BP 120/75
[2017-01-24] MEDS: PANTOPRAZOLE 40 MG TABLET.DR PO SCH (08:17)
[2017-01-24] MEDS: CALCIUM ACETATE 667 MG TABLET PO SCH ×2 (08:19→12:02)
[2017-01-24] MEDS: SEVELAMER CARBONATE 800 MG TABLET PO SCH ×2 (08:19→12:02)
[2017-01-24] MEDS: LEVOTHYROXINE SODIUM 25 MCG TABLET PO SCH (08:19)
--- NOTE | 2017-01-24 10:12 | NUR ---
SOPHIA received a call from BRENDA MELVI Castaneda x [phone] stating that doctor has recommended for pt. to go to [facility] facility (SNF) if pt. is homeless. Pt. is a dialysis patient. SOPHIA informed MELVI Castaneda she will notify Tyson in case management regarding discharge plan. SOPHIA notified Tyson in case management regarding pt. needing SNF placement.
[2017-01-24] MEDS: CARVEDILOL 3.125 MG TABLET PO SCH (11:45)
[2017-01-24] MEDS: DOXAZOSIN MESYLATE (4 MG) 4 MG TABLET PO SCH (11:46)
[2017-01-24] MEDS: ATORVASTATIN 10 MG TABLET PO SCH (11:46)
[2017-01-24] MEDS: ESCITALOPRAM OXALATE (10 MG) 10 MG TABLET PO SCH (11:46)
[2017-01-24] MEDS: ASPIRIN 81 MG TAB.CHEW PO SCH (11:47)
[2017-01-24] MEDS: VALSARTAN 80 MG TABLET PO SCH (11:47)
[2017-01-24] MEDS: HEPARIN SODIUM, PORCINE 5000 UNITS/1 ML VIAL SQ SCH (11:50)
[2017-01-24 12:00] VITALS: BP 129/78
--- NOTE | 2017-01-24 12:46 | NUR ---
Social service consult requested by MELVI Castaneda due to homelessness. SOPHIA met with patient at bedside. SOPHIA is familiar with pt. from previous admissions. Pt. appeared to be in an irritable mood and was guarded. His appearance was disheveled. Pt was mildly verbally aggressive towards SW. SOPHIA inquired with pt. if he would like a halfway facility, pt. refused and informed SW, " I know they are sending you to ask me these questions". SOPHIA informed pt. no one has sent her to ask questions and SW is here due to him being homeless and to offer resources. SW offered penitentiary placement and resources and pt. refused. SOPHIA offered bus tokens to pt, and pt. requested for 50 bus tokens. SOPHIA informed pt, she is able to give him two bus tokens. Pt. responded angrily stating, " you can give it to your daughter". SOPHIA again asked pt. if he would like two bus tokens, pt. declined and said, " go away". SOPHIA informed pt. since he is refusing any placement or resources, if he can sign the Homeless Patient Waiver Form, pt. stated, he will read it along with all his discharge paperwork and then sign. SOPHIA informed RODRIGO Hinkle and MELVI Castaneda regarding pt. declining SNF, penitentiary placement and resources at this time. SOPHIA gave Homeless Patient Waiver Form to pt's nurse to have him sign prior to discharge.
--- NOTE | 2017-01-24 15:10 | NUR ---
RN NOTE PT DISCHARGED TO STREET, REFUSED PLACEMENT PER TRANSPORTATION MAINTENANCE OPERATOR, PT REFUSED PICTURES TAKEN, PT REFUSED TO SIGN PAPERWORK, PT REFUSED TO RECEIVE DISCHARGE INSTRUCTIONS. Addendum: 01/24/17 at 1527 by SHANNAN GANNON RN IV removed, ID band removed
== END 2017-01-24 15:00 | disposition home or self-care (01) | DRG 73 ==
LOC: ER 17:36 → TELE1 19:56 → MEDSG1 01-24 13:36
PROVIDERS: ADMIT Internal Medicine; ATTEND Internal Medicine
DX: G90.8 Other disorders of autonomic nervous system (principal); N18.6 End stage renal disease; I13.2 Hypertensive heart and chronic kidney disease with heart failure and with stage 5 chronic kidney disease, or end stage renal disease; D63.8 Anemia in other chronic diseases classified elsewhere; E44.1 Mild protein-calorie malnutrition; S20.212A Contusion of left front wall of thorax, initial encounter; R55 Syncope and collapse; E03.9 Hypothyroidism, unspecified; I50.30 Unspecified diastolic (congestive) heart failure; Z99.2 Dependence on renal dialysis; E78.5 Hyperlipidemia, unspecified; K21.9 Gastro-esophageal reflux disease without esophagitis; Z59.0 Homelessness; F39 Unspecified mood [affective] disorder; R07.89 Other chest pain
CPT/HCPCS: 36415; 70450-TC; 71010-TC; 80048-TC; 80076-TC; 82962-TC; 83735-TC; 84100-TC; 84484-TC; 85025-TC; 85730-TC; 87081-TC; 93971-TC; A4606; J1644; Z7610

== ENCOUNTER 2017-03-24 20:35 | Emergency (ER) | payer MEDICARE, MEDICAID ==
[~2017-03-24] VITALS: Ht 172.7 cm; Wt 65.8 kg
[~2017-03-24 20:35] MED LIST changes: +ACET325T53 PO; +ASPI81TA2 PO; -ESCI10TA PO; +ESCI5TAB PO; -HYDR-4077 PO
[2017-03-24 21:16] LABS: BASOPHILS % (AUTO) 0.2 % (0.0-2.0); EOSINOPHILS # (AUTO) 0.1 /CMM (0.0-0.7); EOSINOPHILS % (AUTO) 0.6 % (0.0-6.0); HEMATOCRIT 40 % (39-51); HEMOGLOBIN 12.9 g/dL (13.5-17.5); LYMPHOCYTES # (AUTO) 0.7 /CMM (0.8-4.8); LYMPHOCYTES % (AUTO) 4.4 % (20.0-44.0); MEAN CORPUSCULAR HEMOGLOBIN 28 PG (26.0-33.0); MEAN CORPUSCULAR HGB CONC 32 g/dl (31.0-36.0); MEAN CORPUSCULAR VOLUME 87 fL (80-96); MONOCYTES # (AUTO) 1.1 /CMM (0.1-1.30); MONOCYTES % (AUTO) 7.2 % (2.0-12.0); NEUTROPHILS % (AUTO) 87.6 % (43.0-81.0); PLATELET COUNT (AUTO) 269 /CMM (150-450); RDW COEFFICIENT OF VARIATION 16.3 (11.5-15.0); RED BLOOD CELL COUNT(AUTO) 4.64 MIL/uL (4.5-6.0); WHITE BLOOD COUNT (AUTO) 14.9 K/uL (4.3-11.0)
[2017-03-24 21:27] LABS: SODIUM SERUM 144 mmol/L (136-145)
[2017-03-24 21:33] LABS: ALANINE AMINOTRANSFERASE 18 U/L (12-78); ALBUMIN 3.5 g/dL (3.4-5.0); ALKALINE PHOSPHATASE 206 U/L (46-116); ASPARTATE AMINOTRANSFERASE 20 U/L (15-37); BILIRUBIN,DIRECT 0.2 mg/dL (0.0-0.2); BILIRUBIN,TOTAL 0.4 mg/dL (0.2-1.0); CALCIUM, SERUM 9.9 mg/dL (8.5-10.1); CARBON DIOXIDE 23 mmol/L (21-32); CHLORIDE 107 mmol/L (98-107); GLUCOSE 99 mg/dL (74-106); POTASSIUM 5.6 mmol/L (3.5-5.1); TOTAL PROTEIN, SERUM 8.8 g/dL (6.4-8.2)
[2017-03-24 21:34] LABS: UREA NITROGEN, BLOOD 65 mg/dL (7-18)
[2017-03-24 21:35] LABS: CREATININE 8.4 mg/dL (0.6-1.3); TROPONIN I 0.024 ng/mL (0.00-0.056)
[2017-03-24 21:49] LABS: INR 1.06 (0.87-1.13)
[2017-03-24] MEDS ORDERED: HYDROCODONE/APAP 5/325MG 1 EACH TABLET ONE (22:08)
--- NOTE | 2017-03-24 22:14 | NUR ---
PT LYING IN BED, A/O X 4, BREATHING EVEN/UNLABORED, DIALYSIS PORT TO R CHEST STATES "DIALYSIS DAYS T//FRI, C/O 11/16 PAIN TO LOWER BACK NON RADIATING,
[2017-03-24] MEDS ORDERED: HYDROCODONE/APAP 5/325MG 1 EACH TABLET PO ONE (22:30)
--- NOTE | 2017-03-24 22:40 | NUR ---
ER IN ROOM WITH PT EXPLAINING XR RESULTS, PER PT "I WANT TO GO HOME, I WILL F/U WITH MY DOCTOR TOMORROW, I JUST WANT TO GO HOME TONIGHT"
--- NOTE | 2017-03-24 22:45 | NUR ---
PER ER "OK NOT TO START IV, PT TO BE D/C"
--- NOTE | 2017-03-24 23:11 | NUR ---
KARI WITH YOLA RN AT [facility], ALL QUESTIONS ANSWERED, PT TO BE D/C, AMBULANCE SET UP FOR P/U AT THIS TIME, PT AWARE OF SET UP TO D/C
--- NOTE | 2017-03-25 00:06 | NUR ---
PT LYING IN BED, AROUSED EASILY TO VOICE, A/O X 4, BREATHING EVEN/UNLABORED, NAD NOTED, ALL CURRENT NEEDS MET AT THIS TIME
--- NOTE | 2017-03-25 01:26 | NUR ---
SPOKE WITH JOHN RN AT [facility], PER NURSE "PT TAKES CATAPRESS 0.2MG Q6HR, COREG 3.125MG BID, ER MD MADE AWARE, ORDERS TO FOLLOW
[2017-03-25] MEDS ORDERED: CLONIDINE HCL 0.1 MG TABLET PO ONE (01:30)
[2017-03-25] MEDS ORDERED: CARVEDILOL 3.125 MG TABLET PO ONE (01:30)
[2017-03-25] MEDS ORDERED: CLONIDINE HCL 0.1 MG TABLET ONE (01:35)
[2017-03-25] MEDS ORDERED: CARVEDILOL 6.25 MG TABLET ONE (01:35)
--- NOTE | 2017-03-25 02:02 | NUR ---
SPOKE WITH JOHN WALLACE AT NURSING FACILITY REGARDING ELEVATED BP, NURSE IS AWARE PT HAS MISSED 4 DOSES OF BP MEDICATION AND THAT MEDICATIONS WERE GIVEN IN ER. SHE IS AWARE AND GAVE OK FOR PT TO BE TRANSFERED WITH THE ELEVATED BP, ER MD AWARE
[2017-03-25 02:12] VITALS: BP 178/88
--- NOTE | 2017-03-25 02:13 | NUR ---
PT D/C TO FACILITY, AMBULNZ 539 FOR P/U
== END 2017-03-25 02:13 | disposition home or self-care (01) ==
LOC: ER 20:37
DX: S32.019A Unspecified fracture of first lumbar vertebra, initial encounter for closed fracture (principal); I12.0 Hypertensive chronic kidney disease with stage 5 chronic kidney disease or end stage renal disease; N18.6 End stage renal disease; K21.9 Gastro-esophageal reflux disease without esophagitis; E78.5 Hyperlipidemia, unspecified; E03.9 Hypothyroidism, unspecified; Z79.82 Long term (current) use of aspirin; W18.39XA Other fall on same level, initial encounter; Y93.89 Activity, other specified; Y92.89 Other specified places as the place of occurrence of the external cause; Y99.8 Other external cause status
CPT/HCPCS: 36415; 71010; 72110; 80048; 80076; 84484; 85025; 85730; 93005; 99285; A4606; Z7610

== ENCOUNTER 2017-04-24 17:28 | Emergency (ER) | payer MEDICARE, MEDICAID ==
[~2017-04-24] VITALS: Ht 172.7 cm; Wt 74.8 kg
--- NOTE | 2017-04-24 17:40 | NUR ---
[id number] FROM RENAL: AGGRESSIVE BEHAVIOR DURING HEMODIALYSIS: 2 HRS OF 3.5HRS COMPLETED. PATIENT NON-COOPERATIVE, AGITATED. A/OX 3, BREATHING EVEN AND UNLABORED. NO SOB. VITALS STABLE. SAFETY AND COMFORT MEASURES IN PLACE. AWAITING MD ORDERS.
--- NOTE | 2017-04-24 17:50 | NUR ---
BANK SECRECY ACT OFFICER AT BEDSIDE FOR BLOOD DRAW.
[2017-04-24 18:12] LABS: CALCIUM, SERUM 9.8 mg/dL (8.5-10.1); CARBON DIOXIDE 28 mmol/L (21-32); CHLORIDE 103 mmol/L (98-107); CREATININE 4.5 mg/dL (0.6-1.3); GLUCOSE 133 mg/dL (74-106); SODIUM SERUM 138 mmol/L (136-145); UREA NITROGEN, BLOOD 23 mg/dL (7-18)
--- NOTE | 2017-04-24 18:41 | NUR ---
SPOKE WITH JERZY FROM [facility], ETA 45 MINS.
[2017-04-24 19:18] VITALS: BP 152/94
--- NOTE | 2017-04-24 19:19 | NUR ---
Patient discharged to home in stable condition via ambulance. Written and verbal after care instructions given. Patient verbalizes understanding of instruction.
== END 2017-04-24 19:19 | disposition home or self-care (01) ==
LOC: ER 17:30
DX: R41.82 Altered mental status, unspecified (principal); D64.9 Anemia, unspecified; E03.9 Hypothyroidism, unspecified; E78.5 Hyperlipidemia, unspecified; I12.0 Hypertensive chronic kidney disease with stage 5 chronic kidney disease or end stage renal disease; N18.6 End stage renal disease; Z79.82 Long term (current) use of aspirin; Z99.2 Dependence on renal dialysis
CPT/HCPCS: 36415; 80048; 99283; A4606; Z7610

== ENCOUNTER 2017-08-12 17:58 | Inpatient (IN) | payer MEDICARE, MEDICAID ==
[~2017-08-12] VITALS: Ht 177.8 cm; Wt 59.9 kg
[~2017-08-12 17:58] MED LIST changes: +ASPI-1169 PO; -ASPI81TA2 PO
--- NOTE | 2017-08-12 18:39 | NUR ---
DR DIEGO AT BEDSIDE FOR EVAL.
--- NOTE | 2017-08-12 18:40 | NUR ---
PT BIBRA FROM SNF TO ER BED 16. PER REPORT, PT IS MORE ALTERED AND IS REFUSING DIALYSIS. GOWNED AND PLACED ON MONITOR. AWAITING MD RUELAS.
[2017-08-12] MEDS ORDERED: IV NS 0.9% 1,000 ML BAG IV ONE (19:00)
[2017-08-12 19:16] LABS: BASOPHILS % (AUTO) 0.2 % (0.0-2.0); EOSINOPHILS % (AUTO) 0.1 % (0.0-6.0); HEMATOCRIT 44 % (39-51); HEMOGLOBIN 14.8 g/dL (13.5-17.5); LYMPHOCYTES # (AUTO) 0.3 /CMM (0.8-4.8); LYMPHOCYTES % (AUTO) 3.5 % (20.0-44.0); MEAN CORPUSCULAR HEMOGLOBIN 31 PG (26.0-33.0); MEAN CORPUSCULAR HGB CONC 34 g/dl (31.0-36.0); MEAN CORPUSCULAR VOLUME 92 fL (80-96); MONOCYTES # (AUTO) 0.6 /CMM (0.1-1.30); MONOCYTES % (AUTO) 7.2 % (2.0-12.0); PLATELET COUNT (AUTO) 85 /CMM (150-450); RDW COEFFICIENT OF VARIATION 14.6 (11.5-15.0); RED BLOOD CELL COUNT(AUTO) 4.77 MIL/uL (4.5-6.0); WHITE BLOOD COUNT (AUTO) 7.9 K/uL (4.3-11.0)
[2017-08-12] MEDS ORDERED: CRAN3875 PO (19:27)
[2017-08-12] MEDS ORDERED: FERR325T23 PO (19:27)
[2017-08-12] MEDS ORDERED: ACET-2605 PO (19:27)
[2017-08-12] MEDS ORDERED: CLON0.2T PO (19:27)
[2017-08-12] MEDS ORDERED: ACET-868 PO (19:27)
[2017-08-12] MEDS ORDERED: SEVE800T8 PO (19:27)
[2017-08-12] MEDS ORDERED: CARV6.252 PO (19:27)
[2017-08-12] MEDS ORDERED: HYDR-552 PO (19:27)
[2017-08-12] MEDS ORDERED: DOCU100C36 PO (19:27)
[2017-08-12] MEDS ORDERED: BISA10SU8 RC (19:27)
[2017-08-12] MEDS ORDERED: FOLI0.8T23 PO (19:27)
[2017-08-12] MEDS ORDERED: LISI-603 PO (19:27)
[2017-08-12] MEDS ORDERED: AMLO10TA4 PO (19:27)
[2017-08-12] MEDS ORDERED: CRAN425C6 PO (19:27)
[2017-08-12] MEDS ORDERED: ASCO-340 PO (19:27)
[2017-08-12 19:30] LABS: INR 1.17 (0.85-1.15)
[2017-08-12 19:32] LABS: ALANINE AMINOTRANSFERASE 42 U/L (12-78); ALKALINE PHOSPHATASE 126 U/L (46-116); ASPARTATE AMINOTRANSFERASE 55 U/L (15-37); BILIRUBIN,DIRECT 0.3 mg/dL (0.0-0.2); BILIRUBIN,TOTAL 0.5 mg/dL (0.2-1.0); CALCIUM, SERUM 9.1 mg/dL (8.5-10.1); CARBON DIOXIDE 16 mmol/L (21-32); CHLORIDE 99 mmol/L (98-107); GLUCOSE 108 mg/dL (74-106); LIPASE 228 U/L (73-393); SODIUM SERUM 141 mmol/L (136-145); TOTAL PROTEIN, SERUM 8.9 g/dL (6.4-8.2)
[2017-08-12 19:35] LABS: POTASSIUM 7.7 mmol/L (3.5-5.1); UREA NITROGEN, BLOOD 189 mg/dL (7-18)
[2017-08-12 19:36] LABS: CREATININE 12.7 mg/dL (0.6-1.3)
--- NOTE | 2017-08-12 19:37 | NUR ---
CRITICIAL LAB RESULTS RECEIVED. POTASSIUM 7.7, BUN 189, CREATININE 12.7 MD MADE AWARE.
[2017-08-12 19:47] LABS: BAND % (MANUAL) 2 % (0.0-5.0); LYMPHOCYTES % (MANUAL) 5 % (16-48); MONOCYTES % (MANUAL) 5 % (0-11.0); NEUTROPHILS % (MANUAL) 88 (42-76)
--- NOTE | 2017-08-12 19:49 | NUR ---
CALLED Bueda COCOA MILL OPERATOR WAS PAGED.
[2017-08-12] MEDS ORDERED: SODIUM BICARBONATE SYR 50 MEQ/50 ML DISP.SYRIN ONE (20:00)
[2017-08-12] MEDS ORDERED: DEXTROSE 50%-WATER 50 ML DISP.SYRIN ONE (20:00)
[2017-08-12] MEDS ORDERED: INSULIN REGULAR, HUMAN 100 UNIT/ML 10 ML VIAL IV ONE (20:00)
[2017-08-12] MEDS ORDERED: Calcium Gluconate 1GM/10ML 9.3 MEQ in IV NS 0.9% 250 ML IV ONE (20:00)
[2017-08-12] MEDS ORDERED: SODIUM BICARBONATE SYR 50 MEQ/50 ML DISP.SYRIN IV ONE (20:00)
[2017-08-12] MEDS ORDERED: DEXTROSE 50%-WATER 50 ML DISP.SYRIN IVP ONE (20:00)
[2017-08-12] MEDS ORDERED: INSULIN REGULAR, HUMAN 100 UNIT/ML 10 ML VIAL ONE (20:01)
[2017-08-12] MEDS ORDERED: Calcium Gluconate 0.465 MEQ/ML VIAL IV ONE (20:06)
[2017-08-12] MEDS ORDERED: ALBUTEROL FS 2.5 MG/3 ML VIAL.NEB ONE (20:14)
[2017-08-12] MEDS ORDERED: ALBUTEROL FS 2.5 MG/0.5 ML VIAL.NEB NEB ONE (20:30)
[2017-08-12 21:00] VITALS: BP 129/69
[2017-08-12] MEDS ORDERED: HYDROCODONE/APAP 5/325MG 1 EACH TABLET PO PRN (21:00)
[2017-08-12] MEDS ORDERED: MAGNESIUM HYDROXIDE 30 ML UDC PO PRN (21:00)
[2017-08-12] MEDS ORDERED: Z GUARD REMEDY 2 OZ OINT TP PRN (21:00)
[2017-08-12] MEDS ORDERED: BISACODYL SUPP (10 MG) 10 MG/SUPP.RECT SUPP.RECT RC PRN (21:00)
[2017-08-12] MEDS ORDERED: ONDANSETRON HCL/PF 4 MG/2 ML VIAL IVP PRN (21:00)
[2017-08-12] MEDS ORDERED: MAG HYDROX/AL HYDROX/SIMETH 30 ML UDC PO PRN (21:00)
[2017-08-12] MEDS ORDERED: ACETAMINOPHEN 325 MG TABLET PO PRN (21:00)
[2017-08-12] MEDS ORDERED: ZOLPIDEM TARTRATE 5 MG TABLET PO PRN (21:00)
[2017-08-12] MEDS ORDERED: MORPHINE SULFATE INJ 2 MG/ML DISP.SYRIN IV PRN (21:00)
--- NOTE | 2017-08-12 21:00 | NUR ---
SHEET METAL FOREMAN ADMITTING NOTES: ADMITTED A 71 YO MALE PATIENT WHO [facility] TO ALOC, WEAKNESS AND REFUSAL TO HAVE TREATMENT AND DIALYSIS, AND WAS DIAGNOSED WITH HYPERKALEMIA IN ER. PATIENT WAS BROUGHT TO TELE FLOOR VIA GURNEY, ON O2 AT 3 LPM VIA SD. PATIENT IS LETHARGIC, UNABLE TO GIVE ANY CLEAR VERBAL RESPONSE OTHER THAN MUMBLING INCOHERENTLY, UNABLE TO FOLLOW COMMANDS, BUT OPENS EYES SPONTANEOUSLY TO NAME AND TO TOUCH. NOTED WITH BLE WEAKNESS. PATIENT HAS RCW PERMACATH WITH CLEAN AND INTACT DRESSING. SAUNDRA AV FISTULA PRESENT BUT WITH POORLY PALPABLE, NON CONTINUOUS THRILLS. PIV OVER LFA G 18 AND RFAG 20 INTACT AND PATENT TO FLUSH. PROVIDED FOR COMFORT AND SAFETY. ADMITTING CARE DONE. BED IN LOWEST AND LOCKED POSITION, SIDERAILS UP X 3, BED ALARMS ON. WILL CONT TO MONITOR.
--- NOTE | 2017-08-12 21:17 | NUR ---
REPORT GIVEN TO BAILEY. PT TRANSFERED TO FLOOR IN STABLE CONDITION.
--- NOTE | 2017-08-12 21:36 | NUR ---
RN NOTES: HD NURSE AT BEDSIDE.
--- NOTE | 2017-08-12 23:30 | NUR ---
HD ENDED AT THIS TIME. HR ON TELE MONITOR SHOWS 180S SINUS. NOTED PATEINT WITH LABORED BREATHING, O2 SAT DECREASED TO 86%, SWITCHED O2 TO 15 LPM VIA FACEMASK. PATIENT MORE LETHARGIC THAN EARLIER PRIOR TO HD. CN MADE AWARE. ORDERED FOR STAT EKG.
--- NOTE | 2017-08-12 23:44 | NUR ---
CALLED TO PT BEDSIDE FOR STAT EKG FOLLOWED BY NASOTRACHEAL SUCTION. PT PLACED ON SIMPLE MASK 12L WITH SPO2 93%@THIS TIME PT COMPLETED HEMODIALYSIS AT 2320 Addendum: 08/13/17 at 0008 by MIKE RILEY RT Amended: Links added.
[2017-08-12] MEDS: CLONIDINE HCL 0.2 MG TABLET PO SCH (23:58)
[2017-08-12] MEDS: DOCUSATE SODIUM 100 MG CAPSULE PO SCH (23:58)
--- NOTE | 2017-08-12 23:58 | NUR ---
RN NOTES: SPOKE TO DR FERRIS TO INFORM HIM OF EKG: AFIB WITH RVR AND FAST LABORED BREATHING, O2 SAT AT 85-88% ON 3 LPM VIA NC, SWITCHED TO O2 AT 15 LPM VIA FACE MASK. RT AT BEDSIDE, DEEP SUCTIONING DONE. RECOMMENDED FOR ABG TO BE DONE 90 MINS AFTER HD ENDED. PER DR JERONIMO, HE WILL PUT IN NEW ORDERS.
[2017-08-13] VITALS (74 sets, daily range): BP systolic 79–208; BP diastolic 33–91
[2017-08-13] MEDS ORDERED: DILTIAZEM HCL 50 MG IV IV PRN
[2017-08-13] MEDS ORDERED: LORAZEPAM INJ 2 MG/ML VIAL IV PRN
[2017-08-13] MEDS ORDERED: DILTIAZEM HCL 25 MG IV IV PRN (00:12)
--- NOTE | 2017-08-13 00:30 | NUR ---
CALLED DR FERRIS TO ASK REGARDING DILTIAZEM 10 MG IV ORDERED. BP AT 98/59, HR STILL AT 152. PER DR FERRIS, OK TO GIVE. REPEATED BACK VERBALLY HIS ORDER. NOTED AND CARRIED OUT.
[2017-08-13 01:25] LABS: ABG BASE EXCESS -2.6 mmol/L; ABG OXYGEN SATURATION 93.2 % (92.0-98.5); ABG PCO2 29.1 mmHg (35.0-45.0); ABG PH 7.458 (7.350-7.450); ABG PO2 73.9 mmHg (75.0-100.0); AaDO2 393.9 mmHg; COHb 0.6 % (0.5-1.5); MetHb 0.6 % (0.0-1.5); O2Hb 92.1 % (94.0-97.0); SITE, ABG Left Brachial; VENT MODE, BG 12L SIMPLE MASK
--- NOTE | 2017-08-13 01:30 | NUR ---
CALLED DR FERRIS AGAIN TO INFORM HIM RE ABG RESULT, AND PT'S PERSISTENT HR AT 150-160S EVEN 45 MINS AFTER DILTIAZEM 10 MG IV WAS GIVEN. ALSO INFORMED HIM PATIENT'S BREATHING IS AGONAL AND IS MORE LETHARGIC/ POORLY AROUSABLE. CHARU, ICU METAL PATTERNMAKER APPRENTICE ALSO AT BEDSIDE WITH LINDA METAL PATTERNMAKER APPRENTICE. ORDER MADE FOR ICU TRANSFER. NOTED AND CARRIED OUT.
--- NOTE | 2017-08-13 02:00 | NUR ---
RN NOTES: TRANSFERRED TO ICU RM- 260 VIA ACLS PROTOCOL. REPORT GIVEN TO RODRIGO DOBBS FOR TREASURE.
--- NOTE | 2017-08-13 02:00 | NUR ---
RN NOTES PATIENT BROUGHT IN VIA BED FROM [facility]. REPORT RECEIVED FROM [facility] RODRIGO MAIR. RECEIVED PT LETHARGIC,UNABLE TO FOLLOW SIMPLE COMMANDS. ON 10L SIMPLE MASK, WITH NOTED AGONAL BREATHING. PT IS STILL AFIB WITH RVR, HR 150-170'S, CARDIZEM 10MG IVP WAS GIVEN IN [facility] 1 HOUR AGO. PT IS ANURIC. RIGHT UPPER ARM AV SHUNT NOTED. RIGHT CHEST WALL PERMACATH INTACT, DIALYSIS WAS DONE AND FINISHED ON 08/12 @ 2300. LEFT FOREARM 18G AND LEFT HAND 20G BOTH FLUSHED AND PATENT, NO S/S OF INFILTRATION/INFECTION, DRESSINGS CDI. BED LOW AND LOCKED, SIDERAILS UP, CALL LIGHT WITHIN REACH. WILL CALL ON-CALL DR FERRIS REPORT CURRENT PT STATUS
--- NOTE | 2017-08-13 02:15 | NUR ---
RN NOTES CALLED DR FERRIS AND INFORMED HIM OF PATIENT'S UNCHANGED AFIB WITH RVR. UPDATED HIM WITH CURRENT VITALS, MENTAL STATUS, AND PATIENT'S AGONAL BREATHING. PER MD, START AMIO DRIP WITH BOLUS. ALSO, IF PATIENT'S BREATHING STATUS REMAINS UNCHANGED OR WORSENS, INTUBATE THE PATIENT.
[2017-08-13 02:20] LABS: ALANINE AMINOTRANSFERASE 41 U/L (12-78); ALBUMIN 2.4 g/dL (3.4-5.0); ALKALINE PHOSPHATASE 98 U/L (46-116); ASPARTATE AMINOTRANSFERASE 47 U/L (15-37); BILIRUBIN,TOTAL 0.8 mg/dL (0.2-1.0); CALCIUM, SERUM 8.9 mg/dL (8.5-10.1); CARBON DIOXIDE 21 mmol/L (21-32); CHLORIDE 102 mmol/L (98-107); GLUCOSE 86 mg/dL (74-106); POTASSIUM 5.5 mmol/L (3.5-5.1); SODIUM SERUM 146 mmol/L (136-145); TOTAL PROTEIN, SERUM 7.2 g/dL (6.4-8.2)
[2017-08-13 02:21] LABS: CREATININE 9.3 mg/dL (0.6-1.3); UREA NITROGEN, BLOOD 121 mg/dL (7-18)
[2017-08-13] MEDS ORDERED: AMIODARONE 150 MG/3 ML VIAL IV ONE ×2 (02:23→02:29)
[2017-08-13] MEDS ORDERED: AMIODARONE 150 MG in IV D5W 100 ML IV ONE (02:30)
[2017-08-13] MEDS: AMIODARONE 900 MG in IV D5W 482 ML IV PRN ×2 (02:44→17:00)
--- NOTE | 2017-08-13 03:00 | NUR ---
RN NOTES ER DR HEAD IN PATIENT ROOM TO ASSESS THE PATIENT. NOTIFIED HER OF CURRENT CHEST XR AND CMP RESULTS. PER MD, BASED ON PATIENT'S BREATHING STATUS, SHE RECOMMENDS TRIAL BIPAP. I WILL CALL DR FERRIS TO GET AN ORDER
--- NOTE | 2017-08-13 03:15 | NUR ---
RN NOTES RELAYED DR HEAD'S SUGGESTION TO DR FERRIS. PER DR FERRIS, START PATIENT ON BIPAP. ALSO RECEIVED ORDER FOR TYLENOL 650MG SUPPOSITORY
[2017-08-13 03:16] LABS: BASOPHILS % (AUTO) 0.2 % (0.0-2.0); HEMATOCRIT 36 % (39-51); HEMOGLOBIN 11.9 g/dL (13.5-17.5); LYMPHOCYTES # (AUTO) 0.2 /CMM (0.8-4.8); LYMPHOCYTES % (AUTO) 1.5 % (20.0-44.0); MEAN CORPUSCULAR HEMOGLOBIN 31 PG (26.0-33.0); MEAN CORPUSCULAR HGB CONC 34 g/dl (31.0-36.0); MEAN CORPUSCULAR VOLUME 92 fL (80-96); MONOCYTES # (AUTO) 0.3 /CMM (0.1-1.30); MONOCYTES % (AUTO) 2.6 % (2.0-12.0); NEUTROPHILS # (AUTO) 9.7 /CMM (1.8-8.9); NEUTROPHILS % (AUTO) 95.7 % (43.0-81.0); PLATELET COUNT (AUTO) 78 /CMM (150-450); RDW COEFFICIENT OF VARIATION 15.5 (11.5-15.0); RED BLOOD CELL COUNT(AUTO) 3.88 MIL/uL (4.5-6.0); WHITE BLOOD COUNT (AUTO) 10.1 K/uL (4.3-11.0)
[2017-08-13 03:27] LABS: CALCIUM, SERUM 8.6 mg/dL (8.5-10.1); CARBON DIOXIDE 21 mmol/L (21-32); CHLORIDE 101 mmol/L (98-107); GLUCOSE 106 mg/dL (74-106); MAGNESIUM 2.1 mg/dL (1.8-2.4); PHOSPHORUS 6.3 mg/dL (2.5-4.9); POTASSIUM 5.7 mmol/L (3.5-5.1); SODIUM SERUM 144 mmol/L (136-145)
[2017-08-13 03:30] LABS: CREATININE 9.3 mg/dL (0.6-1.3); UREA NITROGEN, BLOOD 123 mg/dL (7-18)
[2017-08-13] MEDS ORDERED: ACETAMINOPHEN 650 MG/SUPP.RECT RC PRN (03:30)
--- NOTE | 2017-08-13 03:37 | NUR ---
PT PLACED ON BIPAP PER DR FERRIS. WILL CONTINUE TO MONITOR. Addendum: 08/13/17 at 0338 by PAVEL PENDLETON RT Amended: Links added.
[2017-08-13] MEDS ORDERED: NOREPINEPHRINE 8 MG in IV D5W 500 ML IV PRN (04:30)
[2017-08-13] MEDS ORDERED: VANCOMYCIN 1 GM VIAL ONE (04:57)
[2017-08-13] MEDS ORDERED: VANCOMYCIN 1 GM in IV D5W 250 ML IV ONE (05:00)
[2017-08-13] MEDS: CLONIDINE HCL 0.2 MG TABLET PO SCH (05:00)
[2017-08-13 05:17] LABS: BAND % (MANUAL) 19 % (0.0-5.0); NEUTROPHILS % (MANUAL) 74 (42-76)
[2017-08-13 05:18] LABS: LYMPHOCYTES % (MANUAL) 2 % (16-48); METAMYELOCYTES % 3 % (0-0); MONOCYTES % (MANUAL) 2 % (0-11.0)
--- NOTE | 2017-08-13 06:30 | NUR ---
RN CLOSING NOTES PT CONVERTED TO SR WITH HR 90'S @ 0432, STILL ON AMIO DRIP @ 1MG/MIN. CURRENTLY ON BIPAP WITH NO DISTRESS, SATURATING WELL. PT IS STABLE. AM CARE PROVIDED. WILL ENDORSE TREASURE TO AM RN
--- NOTE | 2017-08-13 07:15 | NUR ---
FULLER BRUSH WORKER NOTES RECEIVED PATIENT LETHARGIC RESPONSIVE TO VERBAL STIMULI , OPENS EYES , ON BIPAP 15/5 RATE OF 14 , FIO2 OF 50% WITH SPO2 OF 99% , SR 90 ON BEDSIDE MONITOR , L FA # 18 WITH AMIODARONE DRIP @ 1MG/HR INFUSING WELL , L HAND # 20 PATENT AND INTACT SL , ALL NEEDS ATTENDED , BED ON LOW AND LOCKED POSITION , SIDE RAILS X2 ,CALL LIGHT WITHIN REACH , HOB @ 45 , WILL CONTINUE TO MONITOR .
[2017-08-13] MEDS ORDERED: VANCOMYCIN 500 MG in IV D5W 100 ML IV PRN (08:00)
[2017-08-13 08:24] LABS: ABG BASE EXCESS -0.6 mmol/L; ABG OXYGEN SATURATION 94.8 % (92.0-98.5); ABG PH 7.474 (7.350-7.450); ABG PO2 81.1 mmHg (75.0-100.0); AaDO2 240.5 mmHg; COHb 0.6 % (0.5-1.5); MetHb 0.3 % (0.0-1.5); O2Hb 93.9 % (94.0-97.0); SITE, ABG Left Brachial; VENT MODE, BG IPAP 15/ EPAP 5
[2017-08-13] MEDS: CLONIDINE HCL 0.1 MG TABLET PO SCH ×3 (08:39→20:22)
[2017-08-13] MEDS: CARVEDILOL 6.25 MG TABLET PO SCH ×2 (08:39→16:13)
[2017-08-13] MEDS: VIT B CMPLX 3/FA/VIT C/BIOTIN 1 TAB TABLET PO SCH (08:40)
[2017-08-13] MEDS: AMLODIPINE BESYLATE 10 MG TABLET PO SCH (08:40)
[2017-08-13] MEDS: ASCORBIC ACID 500 MG TABLET PO SCH (08:40)
[2017-08-13] MEDS: FERROUS SULFATE (325 MG) 325 MG/TAB TABLET PO SCH (08:40)
[2017-08-13] MEDS: LISINOPRIL (20MG) 20 MG TABLET PO SCH (08:40)
[2017-08-13] MEDS: SEVELAMER CARBONATE 800 MG TABLET PO SCH ×3 (08:40→16:13)
--- NOTE | 2017-08-13 08:45 | NUR ---
WOUND CARE CONSULT: PT PRESENTS WITH MULTIPLE SKIN ISSUES INCLUDING DEEP TISSUE INJURIES (INTACT) TO SACRUM, LEFT LATERAL ANKLE AND RT HEEL, PRESENT ON ADMISSION. FRAGILE SCAR NOTED TO RT LATERAL LOWER LEG. SCAR NOTED TO RT LATERAL ANKLE. CURRENT NNAMDI SCORE IS 12. PT IS INCONTINENT AND IMMOBILE. MULTIPLE DRY SCABS NOTED ESPECIALLY TO RT NECK, CHEST AND ARMS. ALL WOUND CARE AND SKIN PROTECTION RECOMMENDATIONS MADE AND DISCUSSED WITH NURSING STAFF. PT ON THEODOSIA ISOFLEX LOW AIRLOSS BED. WILL SEE PRN. CADE IN AGREEMENT WITH PLAN OF CARE. Addendum: 08/13/17 at 0849 by LALY MEYERS WNDNU Amended: Links added.
[2017-08-13] MEDS: PIPERACILLIN /TAZOBACTAM 2.255 G in IV D5W 50 ML IV SCH ×3 (08:48→20:13)
[2017-08-13] MEDS ORDERED: Medication Not On Formulary EA (Cranberry Extract (Cranberry) 425 MG) PO SCH (09:00)
[2017-08-13] MEDS ORDERED: PIPERACILLIN /TAZOBACTAM 2.255 G in IV D5W 50 ML IV SCH (09:00)
[2017-08-13] MEDS ORDERED: Medication Not On Formulary EA (Cran/Vitc/Mannose/Inulin/Brom (Uti-Stat Liquid) 30 MG) PO SCH (09:00)
--- NOTE | 2017-08-13 09:00 | NUR ---
STEREO PLOTTER OPERATOR NOTES SEEN AND EVALUATED BY LALY WOUND NURSE , WOUND TX RECEIVED ,PICTURE TAKEN @ LEFT LATERAL ANKLE DT , RIGHT HEEL DTI AND SACRAL DTI ,
--- NOTE | 2017-08-13 09:00 | NUR ---
TRANSFER KNITTER NOTES SEEN AND EVALUATED BY DR CARMEN , PT IS LETHARGIC RESPONSIVE JASON VERBAL STIMULI OPENS EYES BUT REMAINS ALTERED , DISCUSSED LABS , S/P HD YESTERDAY , AWARE
--- NOTE | 2017-08-13 10:04 | NUR ---
BURR MACHINE OPERATOR NOTES SEEN AND EVALUATED BY DR MADRIGAL DISCUSSED LABS , CHEST XRAY AND ABG , AFEBRILE , ADMITTED FROM [facility] , TRANSFERRED TO ICU DUE TO RAPID RVR AFTER HD ON AMIODARONE DRIP @ 0.5MG/HR INFUSING WELL NSR 78 ON BEDSIDE MONITOR , LETHARGIC RESPONSIVE TO VERBAL STIMULI , SPO2 OF 100% VIA BIPAP SETTINGS ORDERED, MD AWARE FELIX CLARK AT BESIDE , SEEN AND EVALUATED THE PATIENT , DISCUSSED LATEST V/S , ABG LABS AND CHEST XRAY , TEMP OF 99.9F , ALOC RESPONSIVE TO VERBAL STIMULI , S/P HD LAST NIGHT NO OUTPUT NOTED , PO MEDS HELD DUE TO ALOC HIGH ASPIRATION RISK , ASKED MANAGER DRIVE IF HE WANTS NGT FOR MEDS , PER MD NO NEED PT IN ON BIPAP . DR WHITEHEAD SEEN AND EVALUATED THE PATIENT , DISCUSSED LABS , CHEST XRAY AND ABG , ALOC RESPONSIVE TO VERBAL STIMULI , BUT REMAINS LETHARGIC , VERIFIED IF PT WILL HAVE HD TODAY , ON AMI DRIP @ 0.5MG/HR DUE TO AFIB RVR , CURRENTLY NSR 78 , MD AWARE
--- NOTE | 2017-08-13 11:45 | NUR ---
CAMERA PROTOTYPING ENGINEER NOTES RELAYED PROCALCITONIN LEVEL TO FELIX CLARK NP WITH TEMP OF 99.2 , PENDING BLOOD CX RESULT , AWARE , NO NEW ORDERS RECEIVED
--- NOTE | 2017-08-13 14:00 | NUR ---
GILL NET STRINGER NOTES PATIENT STABLE AT THIS TIME , WITH ONGOING HD , AFEBRILE , V/S STABLE , WILL CONTINUE TO MONITOR
--- NOTE | 2017-08-13 14:45 | NUR ---
DIRECTOR HOME NOTES VERIFIED WITH FELIX CLARK IF HE WANTS TO PUT MIDLINE OR PICC LINE THERE IS PICC ORDER , NO PRESSORS , V/S STABLE , PER FELIX PUT MIDLINE , VERIFIED ORDERED FOR URINE CULTURE PT IS ANURIC , FELIX IS AWARE .
[2017-08-13] MEDS ORDERED: FEE PK DOSING 1 MIN EA MC ONE (14:59)
--- NOTE | 2017-08-13 15:04 | NUR ---
NURSES ASSISTANT NOTES SEEN AND EVALUATED BY DR LAWLER , DISCUSSED PATIENT HAD AFIB RVR LAST NIGHT S/P HD , ON AMIODARONE DRIP @ 0.5MG STARTED @ 0244 LAST NIGHT , PER MD CONTINUE AMIO DRIP FOR 24 HOURS AND HE WILL ORDERED AMIO PO FRANCISCO JAVIER .
--- NOTE | 2017-08-13 15:06 | NUR ---
OK TO USE MIDLINE.
--- NOTE | 2017-08-13 16:30 | NUR ---
COGNOS NOTES PT STABLE POST HD , AFEBRILE , V/S STABLE REMOVED 500ML . WILL CONTINUE TO MONITOR
--- NOTE | 2017-08-13 18:10 | NUR ---
POLISHER HAND NOTES SPOKE WITH GEOVANI PHARMACIST , NOTIFIED MARTHA THROUGH OF 13 POST HD TODAY , VERIFIED IF PATIENT NEEDS ANOTHER DOSE POST HD , PER PHARMACY VANCOMYCIN POST HD DOSE AT THIS TIME
[2017-08-13] MEDS ORDERED: hydrALAZINE HCL IV 20 MG VIAL IV STA (18:50)
--- NOTE | 2017-08-13 18:52 | NUR ---
BLACK OXIDE COATING EQUIPMENT TENDER NOTES PAGED FELIX CLARK , NOTIFIED PT HAS ELEVATED BP DESPITE OF RE ASSESSING IT , CURRENT BP OF 208/84 VIA LEFT CALF , TACHYPNEIC ON BIPAP RR OF 30-37 , DEEP RESPIRATIONS NOTED WITH SPO2 OF 92-95% , HR OF 105-100 , PER AUTO OVERHAULER GIVE HYDRALAZINE 10MG X1 , AND DO ABG , ORDERS CARRIED OUT
[2017-08-13 19:00] LABS: FIBRINOGEN ACTIVITY 531 Mg/dL (213-485); INR 1.22 (0.87-1.13); PARTIAL THROMBOPLASTIN TIME 30 SEC (23-34); PLATELET COUNT (AUTO) 71 /CMM (150-450)
[2017-08-13 19:01] LABS: D-DIMER > 35.20 mg/L(FEU (0.17-0.50)
--- NOTE | 2017-08-13 19:30 | NUR ---
RN INITIAL NOTES RECEIVED PT ASLEEP ON BED, DIFFICULT TO AROUSE EVEN THROUGH PAINFUL STIMULI. CURRENTLY ON BIPAP WITH SETTINGS 15/5, RATE 14, FIO2 50%, SATURATING WELL. CURRENTLY SR/ST ON MONITOR, HR 100'S, BP WNL. NOTIFIED RT ABOUT THE ABG ORDER FOR THE PATIENT. PT IS ANURIC, ON DIAPERS ONLY. RIGHT UPPER ARM AV FISTULA NOTED, RCW PERMACATH INTACT. LEFT FOREARM 18G, LEFT HAND 20G, AND LEFT UPPER ARM MIDLINE WITH AMIO DRIP RUNNING @ 0.5MG/MIN, INFUSION TO END 08/14/17 @ 0244. BED LOW AND LOCKED, SIDERAILS UP, BED ALARM ON. WILL CONTINUE TO MONITOR
[2017-08-13 20:56] LABS: ABG BASE EXCESS 6.4 mmol/L; ABG OXYGEN SATURATION 93.9 % (92.0-98.5); ABG PCO2 35.3 mmHg (35.0-45.0); ABG PH 7.535 (7.350-7.450); ABG PO2 73.2 mmHg (75.0-100.0); AaDO2 243.6 mmHg; COHb 0.6 % (0.5-1.5); MetHb 0.3 % (0.0-1.5); O2Hb 93.1 % (94.0-97.0); SITE, ABG Left Radial; VENT MODE, BG BIPAP 15/5 RR14 50%
[2017-08-13] MEDS: DOCUSATE SODIUM 100 MG CAPSULE PO SCH (21:24)
[2017-08-14] VITALS (84 sets, daily range): BP systolic 58–136; BP diastolic 15–82
[2017-08-14] MEDS: PIPERACILLIN /TAZOBACTAM 2.255 G in IV D5W 50 ML IV SCH ×3 (04:00→20:30)
[2017-08-14 05:02] LABS: BASOPHILS % (AUTO) 0.1 % (0.0-2.0); EOSINOPHILS % (AUTO) 0.1 % (0.0-6.0); HEMATOCRIT 33 % (39-51); HEMOGLOBIN 10.9 g/dL (13.5-17.5); LYMPHOCYTES # (AUTO) 0.2 /CMM (0.8-4.8); LYMPHOCYTES % (AUTO) 2.8 % (20.0-44.0); MEAN CORPUSCULAR HEMOGLOBIN 31 PG (26.0-33.0); MEAN CORPUSCULAR HGB CONC 34 g/dl (31.0-36.0); MEAN CORPUSCULAR VOLUME 92 fL (80-96); MONOCYTES # (AUTO) 0.3 /CMM (0.1-1.30); MONOCYTES % (AUTO) 4.9 % (2.0-12.0); NEUTROPHILS # (AUTO) 6.1 /CMM (1.8-8.9); NEUTROPHILS % (AUTO) 92.1 % (43.0-81.0); PLATELET COUNT (AUTO) 63 /CMM (150-450); RDW COEFFICIENT OF VARIATION 15.5 (11.5-15.0); RED BLOOD CELL COUNT(AUTO) 3.53 MIL/uL (4.5-6.0); WHITE BLOOD COUNT (AUTO) 6.6 K/uL (4.3-11.0)
[2017-08-14 05:20] LABS: CARBON DIOXIDE 27 mmol/L (21-32); CHLORIDE 98 mmol/L (98-107); CREATININE 7.1 mg/dL (0.6-1.3); GLUCOSE 93 mg/dL (74-106); POTASSIUM 5.2 mmol/L (3.5-5.1); SODIUM SERUM 140 mmol/L (136-145)
[2017-08-14 05:23] LABS: UREA NITROGEN, BLOOD 84 mg/dL (7-18)
[2017-08-14 05:32] LABS: BAND % (MANUAL) 12 % (0.0-5.0); LYMPHOCYTES % (MANUAL) 6 % (16-48); METAMYELOCYTES % 3 % (0-0); MONOCYTES % (MANUAL) 5 % (0-11.0); MYELOCYTES % 2 % (0-0); NEUTROPHILS % (MANUAL) 72 (42-76)
--- NOTE | 2017-08-14 06:00 | NUR ---
RN CLOSING NOTES PT REMAINS STABLE OF THE MOMENT. ALL DUE MEDS GIVEN, AM CARE PROVIDED. WILL ENDORSE TREASURE TO AM RN
--- NOTE | 2017-08-14 07:20 | NUR ---
PHARMACIST AIDE NOTES RECEIVED PATIENT LETHARGIC RESPONSIVE TO PAIN STIMULI , OPENS EYES , GRIMACING DOESN'T FOLLOW COMMANDS M ON BIPAP 21/10 RATE OF 14 , FIO2 OF 50% WITH SPO2 OF 97% , SR 93 ON BEDSIDE MONITOR , L FA # 18 , L HAND # 20 PATENT AND INTACT SL , BERENICE MIDLINE WITH NS @ TKO , RIGHT CHEST WALL PERMACTH C/D/I , ALL NEEDS ATTENDED , BED ON LOW AND LOCKED POSITION , SIDE RAILS X2 ,CALL LIGHT WITHIN REACH , HOB @ 45 , WILL CONTINUE TO MONITOR .
--- NOTE | 2017-08-14 08:33 | NUR ---
SPOKE WITH RN. PATIENT STILL UNSTABLE TO COME DOWN FOR CT HEAD.
[2017-08-14] MEDS: CLONIDINE HCL 0.1 MG TABLET PO SCH ×3 (09:00→20:32)
[2017-08-14] MEDS: VIT B CMPLX 3/FA/VIT C/BIOTIN 1 TAB TABLET PO SCH (09:00)
[2017-08-14] MEDS: FERROUS SULFATE (325 MG) 325 MG/TAB TABLET PO SCH (09:00)
[2017-08-14] MEDS: SEVELAMER CARBONATE 800 MG TABLET PO SCH (09:00)
[2017-08-14] MEDS: LISINOPRIL (20MG) 20 MG TABLET PO SCH (09:00)
[2017-08-14] MEDS: ASCORBIC ACID 500 MG TABLET PO SCH (09:00)
[2017-08-14] MEDS: CARVEDILOL 6.25 MG TABLET PO SCH ×2 (09:00→16:37)
[2017-08-14] MEDS: AMLODIPINE BESYLATE 10 MG TABLET PO SCH (09:00)
--- NOTE | 2017-08-14 10:05 | NUR ---
BUS BOY NOTES SEEN AND EVALUATED BY DR URBANO , DISCUSSED LABS , CHEST XRAY , ,AFEBRILE , V/S STABLE , HD YESTERDAY 500ML OUT , OFF BIPAP @ 1000 ON 10LPM MASK , ALOC , RESPONSIVE TO DEEP PAIN STIMULI , PER MD OBTAIN STAT ABG ,ORDERS CARRIED OUT .
[2017-08-14 10:11] LABS: ABG BASE EXCESS 2.4 mmol/L; ABG OXYGEN SATURATION 93.2 % (92.0-98.5); ABG PH 7.465 (7.350-7.450); ABG PO2 72.9 mmHg (75.0-100.0); AaDO2 314.2 mmHg; COHb 0.7 % (0.5-1.5); MetHb 0.4 % (0.0-1.5); O2Hb 92.2 % (94.0-97.0); SITE, ABG Right Radial
--- NOTE | 2017-08-14 10:35 | NUR ---
ANIMAL CARE ASSISTANT NOTES ABG RESULT RELAYED TO DR YOLIE MD AWARE , NO NEW ORDERS RECEIVED ,
--- NOTE | 2017-08-14 11:06 | NUR ---
WET PRIMER POWDER BLENDER NOTES TRANSFERRED PT TO RADIOLOGY DEPARTMENT VIA ACLS PROTOCOL , STABLE , WILL CONTINUE TO MONITOR
[2017-08-14] MEDS ORDERED: AMIODARONE HCL 200 MG TABLET PO SCH (11:30)
--- NOTE | 2017-08-14 11:40 | NUR ---
STRAP SETTER NOTES NOTIFIED FELIX CLARK REGARDING CT SCAN RESULT , PT IS STILL ALOC , DR LAWLER ADDED PO AMIO , DISCUSSED WITH INSTRUCTIONAL TECHNOLOGY COORDINATOR THE PO MEDS , PER INSTRUCTIONAL TECHNOLOGY COORDINATOR INSERT NGT , NGT INSERTED @ RIGHT NARE , VERIFIED PLACEMENT VIA AUSCULTATION NOTED WITH GURGLING SOUND , ANOTHER RN JOVANY VERIFIED PLACEMENT
[2017-08-14] MEDS: SEVELAMER CARBONATE 0.8 GM POWD.PACK NG SCH ×2 (12:45→17:30)
[2017-08-14] MEDS ORDERED: SEVELAMER CARBONATE 0.8 GM POWD.PACK NG SCH (13:00)
--- NOTE | 2017-08-14 13:48 | NUR ---
POISING INSPECTOR NOTES PT HAD EPISODE OF SVT HR OF 160-165 ON 10LPM MASK , BP OF 120/61 , RR OF 36 CPM , RT AT BEDSIDE , DEEP SUCTIONED PT NOTED WITH THICK BLOODY OUTPUT , PLACED PT BACK ON BIPAP , PAGED DR LAWLER , AWAITING FOR CALL BACK
[2017-08-14] MEDS ORDERED: AMIODARONE 900 MG in IV D5W 482 ML IV PRN (14:00)
[2017-08-14] MEDS ORDERED: AMIODARONE 150 MG in IV D5W 100 ML IV ONE (14:00)
--- NOTE | 2017-08-14 14:13 | NUR ---
AIR PURIFIER SERVICER NOTES DR LAWLER AT BEDSIDE , NOTIFIED BP DROPS TO 60'S POST SVT , APPLIED DEFIB PADS , CARDIOVERTED PT WITH 200J , CONVERTED TO NSR 92 , WITH BP OF 101/55 , SPO2 OF 95% VIA BIPAP , RR OF 30CPM , WILL START AMIO BOLUS AND DRIP , WILL CONTINUE TO MONITOR.
[2017-08-14] MEDS: CADEXOMER IODINE 40 GM TUBE TP SCH ×2 (14:26→20:48)
--- NOTE | 2017-08-14 15:30 | NUR ---
MANAGER TRAFFIC NOTES DR URBANO ORDERED INTUBATION FOR AIRWAY PROTECTION , CALLED ER DOCTOR FOR INTUBATION , RT AT BESIDE , PT STABLE AT THIS TIME , SPO2 OF 100% VIA BIPAP SETTINGS ORDERED , ETOMIDATE 10ML GIVEN THRU IVP , PT TOLERATED INTUBATION , SUCTION PATIENT NOTED WITH BLOODY THICK SECRETIONS , ATTACHED TO VENT . WILL CONTINUE TO MONITOR
--- NOTE | 2017-08-14 15:39 | NUR ---
IRON PELLET TESTER NOTES PATIENT STABLE S/P INTUBATION ,ETT 8.0 /[address] WITH EQUAL BREATH SOUNDS , SPO2 OF 100% VIA MECHANICAL VENT AC 12 TV 550 FIO2 60% AND PEEP OF 5 , ORAL GASTRIC TUBE INSERTED ,VERIFIED PLACEMENT VIA AUSCULTATION WITH ANOTHER RN JOVANY , NOTED WITH GURGLING SOUND , AWAITING FOR STAT CHEST XRAY RESULT ,
[2017-08-14] MEDS ORDERED: PROPOFOL 100 ML IV PRN (16:00)
--- NOTE | 2017-08-14 16:46 | NUR ---
US MARKETING DIRECTOR NOTES DR URBANO AND NILA KENNY SIGNED CONSENT FOR PICC LINE INSERTION .
[2017-08-14] MEDS ORDERED: ETOMIDATE 2 MG/ML VIAL IV ONE (16:47)
--- NOTE | 2017-08-14 17:19 | NUR ---
PT ORALLY INTUBATED WITH 8.0 ETT TUBE SECURED AT 22CM. SETTINGS ORDERED ZERO DISTRESS NOTED. ALARMS SET AND AUDIBLE. AMBU BAG AT HEAD OF BED. Addendum: 08/14/17 at 1722 by TERESITA MCKENNA RT Amended: Links added.
--- NOTE | 2017-08-14 17:30 | NUR ---
ELECTROCARDIOGRAPH OPERATOR NOTES CALLED NURSING LOCAL BULK DRIVER FOR PICC LINE INSERTION
[2017-08-14 17:47] LABS: ABG BASE EXCESS 0.8 mmol/L; ABG OXYGEN SATURATION 97.5 % (92.0-98.5); ABG PCO2 27.3 mmHg (35.0-45.0); ABG PH 7.534 (7.350-7.450); ABG PO2 110.9 mmHg (75.0-100.0); AaDO2 214.9 mmHg; COHb 0.3 % (0.5-1.5); MetHb 0.4 % (0.0-1.5); O2Hb 96.8 % (94.0-97.0); SITE, ABG Right Radial; VT, ABG 550 mL
[2017-08-14] MEDS ORDERED: NOREPINEPHRINE 16 MG in IV D5W 500 ML IV PRN (18:00)
[2017-08-14] MEDS ORDERED: VANCOMYCIN 1 GM in IV D5W 250 ML IV ONE (18:00)
--- NOTE | 2017-08-14 19:00 | NUR ---
RN INITIAL NOTES RECEIVED PT ASLEEP ON BED, DIFFICULT TO AROUSE EVEN THROUGH PAINFUL STIMULI. CURRENTLY INTUBATED AND ON VENT WITH SETTINGS AC 12, TV 500, FIO2 50%, PEEP 0, SATURATING WELL, NO S/S OF RESP DISTRESS. CURRENTLY SR ON MONITOR, HR 80'S, ON CONTINUOUS AMIO DRIP @ 0.5MG/MIN, ON LEVO DRIP @ 6MCG/MIN. PT IS ANURIC, ON DIAPERS ONLY. RIGHT UPPER ARM AV FISTULA NOTED, RCW PERMACATH INTACT. OGT IN PLACE. LEFT FOREARM 18G, LEFT HAND 20G, AND LEFT UPPER ARM MIDLINE FLUSHED AND PATENT, NO S/S OF INFILTRATION/INFECTION, DRESSINGS CDI. BED LOW AND LOCKED, SIDERAILS UP, BED ALARM ON. WILL CONTINUE TO MONITOR
[2017-08-14] MEDS: DOCUSATE SODIUM 100 MG CAPSULE PO SCH (21:15)
--- NOTE | 2017-08-14 21:30 | NUR ---
RN NOTES NOTIFIED DR FERRIS THAT PICC RN IS UNABLE TO INSERT A PICC DUE TO THE PRESENCE OF A CHEST WALL PERMACATH FOR THE PATIENT. PER MD, CENTRAL LINE IS OK TO BE INSERTED INSTEAD. MD TO SIGN THE CONSENT
[2017-08-15] VITALS (34 sets, daily range): BP systolic 88–149; BP diastolic 30–70
[2017-08-15] MEDS: PIPERACILLIN /TAZOBACTAM 2.255 G in IV D5W 50 ML IV SCH (04:19)
[2017-08-15 05:12] LABS: EOSINOPHILS % (AUTO) 0.5 % (0.0-6.0); HEMATOCRIT 32 % (39-51); HEMOGLOBIN 10.7 g/dL (13.5-17.5); LYMPHOCYTES # (AUTO) 0.3 /CMM (0.8-4.8); LYMPHOCYTES % (AUTO) 4.5 % (20.0-44.0); MEAN CORPUSCULAR HEMOGLOBIN 31 PG (26.0-33.0); MEAN CORPUSCULAR HGB CONC 33 g/dl (31.0-36.0); MEAN CORPUSCULAR VOLUME 92 fL (80-96); MONOCYTES # (AUTO) 0.3 /CMM (0.1-1.30); MONOCYTES % (AUTO) 4.5 % (2.0-12.0); NEUTROPHILS # (AUTO) 6.7 /CMM (1.8-8.9); NEUTROPHILS % (AUTO) 90.5 % (43.0-81.0); PLATELET COUNT (AUTO) 69 /CMM (150-450); RDW COEFFICIENT OF VARIATION 15.6 (11.5-15.0); WHITE BLOOD COUNT (AUTO) 7.4 K/uL (4.3-11.0)
[2017-08-15 05:36] LABS: CALCIUM, SERUM 8.6 mg/dL (8.5-10.1); CARBON DIOXIDE 25 mmol/L (21-32); CHLORIDE 98 mmol/L (98-107); GLUCOSE 84 mg/dL (74-106); POTASSIUM 5.9 mmol/L (3.5-5.1); SODIUM SERUM 139 mmol/L (136-145)
[2017-08-15 05:39] LABS: CREATININE 8.5 mg/dL (0.6-1.3); UREA NITROGEN, BLOOD 126 mg/dL (7-18)
[2017-08-15] MEDS ORDERED: VANCOMYCIN 500 MG in IV D5W 100 ML IV PRN (06:00)
--- NOTE | 2017-08-15 06:00 | NUR ---
RN CLOSING NOTES PT REMAINS STABLE OF THE MOMENT. ALL DUE MEDS GIVEN, AM CARE PROVIDED. WILL ENDORSE TREASURE TO AM RN
[2017-08-15 06:18] LABS: BAND % (MANUAL) 36 % (0.0-5.0); EOSINOPHILS % (MANUAL) 1 % (0-4); LYMPHOCYTES % (MANUAL) 8 % (16-48); MONOCYTES % (MANUAL) 6 % (0-11.0); MYELOCYTES % 4 % (0-0); NEUTROPHILS % (MANUAL) 44 (42-76); REACTIVE LYMPHOCYTES 1 % (0-0)
--- NOTE | 2017-08-15 07:38 | NUR ---
Received intubated pt on mechanical vent. Pt 8.0 ETT is secured at 22cm@ the lip. Vent is plugged into a red outlet, alarms are set and audible, and BVM is at bedside. Addendum: 08/15/17 at 0740 by TAYLOR JACKSON RT Amended: Links added.
[2017-08-15] MEDS: SEVELAMER CARBONATE 0.8 GM POWD.PACK NG SCH (08:16)
[2017-08-15] MEDS: AMLODIPINE BESYLATE 10 MG TABLET PO SCH (08:17)
[2017-08-15] MEDS: VIT B CMPLX 3/FA/VIT C/BIOTIN 1 TAB TABLET PO SCH (08:17)
[2017-08-15] MEDS: FERROUS SULFATE (325 MG) 325 MG/TAB TABLET PO SCH (08:17)
[2017-08-15] MEDS: CARVEDILOL 6.25 MG TABLET PO SCH (08:17)
[2017-08-15] MEDS: ASCORBIC ACID 500 MG TABLET PO SCH (08:17)
[2017-08-15] MEDS: LISINOPRIL (20MG) 20 MG TABLET PO SCH (08:17)
[2017-08-15] MEDS: CLONIDINE HCL 0.1 MG TABLET PO SCH (08:18)
[2017-08-15] MEDS: CADEXOMER IODINE 40 GM TUBE TP SCH (08:19)
--- NOTE | 2017-08-15 08:34 | NUR ---
WOUND CARE CONSULT: PT SEEN FOR PURPLE INTACT SKIN AREAS TO NASAL BRIDGE AND BILATERAL CHEEKS NOTED TO BE INTACT DEEP TISSUE INJURIES RELATED TO SHELTER 24 HR USE OF BIPAP. PT NO LONGER ON BIPAP AND NOW INTUBATED. ALL SKIN PROTECTION AND PRESSURE ULCER PREVENTION MEASURES IN PLACE AND DISCUSSED WITH NURSING STAFF. IN AGREEMENT WITH PLAN OF CARE. Addendum: 08/15/17 at 0843 by LALY MEYERS WNDNU Amended: Links added.
[2017-08-15 09:14] LABS: ABG BASE EXCESS 1.1 mmol/L; ABG OXYGEN SATURATION 96.6 % (92.0-98.5); ABG PCO2 33.1 mmHg (35.0-45.0); ABG PO2 93.7 mmHg (75.0-100.0); AaDO2 225.6 mmHg; COHb 0.7 % (0.5-1.5); MetHb 0.5 % (0.0-1.5); O2Hb 95.4 % (94.0-97.0); SITE, ABG Left Radial; VENT MODE, BG AC 12 500 50%
[2017-08-15] MEDS ORDERED: SODIUM BICARBONATE SYR 50 MEQ/50 ML DISP.SYRIN ONE (11:43)
[2017-08-15] MEDS ORDERED: FEE EMEERGENCY 1 MIN EA MC ONE (11:52)
[2017-08-15] MEDS ORDERED: EPINEPHRINE (1:10,000) SYRINGE 1 MG/10 ML DISP.SYRIN IVP ONE (11:52)
[2017-08-15] MEDS ORDERED: SODIUM BICARBONATE SYR 50 MEQ/50 ML DISP.SYRIN IV ONE (11:52)
[2017-08-15] MEDS ORDERED: ALBUMIN 25% 25 GM in PREMIX 1 EA IV PRN (12:00)
--- NOTE | 2017-08-15 12:00 | NUR ---
PEA ARREST DURING HD-CODE BLUE RESUSCITATION ATTEMPT MANAGED BY DR URBANO WAS UNSUCCESSFUL AND PT PRONOUNCED AT [address] URBANO. CALLS TO [facility] WITH LIAISON WITH THEIR MEDICAL RECORDS, SOCIAL WORKERS AND ADMINISTRATION IN ATTEMPT TO OBTAIN NEXT OF KIN OR FRIEND INFORMATION WERE FUTILE
--- NOTE | 2017-08-15 12:40 | NUR ---
ASSISTANT CITY ATTORNEY NOTE 0720: Received patient obtunded. Only responds to deep pain. With 2mm PERRLA. With ETT to vent, tolerated settings well. No respiratory distress noted at this time. SR on the monitor. On Amio drip 0.5mg/min. OGT intact, clamped. PIVs intact. BERENICE midline intact, Amio infusing as ordered. Left femoral TLC intact. RCW HD cath intact. 0830: S/E by Dr. Akins, with order to continue Amio drip 0.5mg/min and will follow up again tomorrow. 1000: HD nurse at bedside. Given bottles for blood culture. 1100: S/E by Dr. Brown, with order of HD in am also. 1125: Remained SR 70-80's. 1132: Just done with HD, HD nurse called me, noted SB 40's on the monitor, no pulse appreciated. 1145, Code blue done, see code blue sheet. Patient pronounced by Dr. Hernandez. Ronan FIRER GLOST KILN at bedside during the code.
== END 2017-08-15 11:45 | disposition expired | DRG 871 ==
LOC: ER 18:00 → TELE 20:50 → ICU 08-13 01:54
PROVIDERS: ADMIT Internal Medicine; ATTEND Internal Medicine
PROC: 5A09457 Assistance with Respiratory Ventilation, 24-96 Consecutive Hours, Continuous Positive Airway Pressure (ICD-10-PCS; principal; 2017-08-12)
PROC: 05H633Z Insertion of Infusion Device into Left Subclavian Vein, Percutaneous Approach (ICD-10-PCS; 2017-08-13)
PROC: B547ZZA Ultrasonography of Left Subclavian Vein, Guidance (ICD-10-PCS; 2017-08-13)
PROC: 5A1935Z Respiratory Ventilation, Less than 24 Consecutive Hours (ICD-10-PCS; 2017-08-14)
PROC: 0BH17EZ Insertion of Endotracheal Airway into Trachea, Via Natural or Artificial Opening (ICD-10-PCS; 2017-08-14)
PROC: 5A2204Z Restoration of Cardiac Rhythm, Single (ICD-10-PCS; 2017-08-14)
DX: A41.9 Sepsis, unspecified organism (principal); J69.0 Pneumonitis due to inhalation of food and vomit; I13.2 Hypertensive heart and chronic kidney disease with heart failure and with stage 5 chronic kidney disease, or end stage renal disease; L89.159 Pressure ulcer of sacral region, unspecified stage; G92 Toxic encephalopathy; J96.01 Acute respiratory failure with hypoxia; J96.02 Acute respiratory failure with hypercapnia; E46 Unspecified protein-calorie malnutrition; N18.6 End stage renal disease; I50.33 Acute on chronic diastolic (congestive) heart failure; I50.30 Unspecified diastolic (congestive) heart failure; N39.0 Urinary tract infection, site not specified; I47.1 Supraventricular tachycardia; D69.6 Thrombocytopenia, unspecified; E87.5 Hyperkalemia; Z99.2 Dependence on renal dialysis; Z91.19 Patient's noncompliance with other medical treatment and regimen; Z91.15 Patient's noncompliance with renal dialysis; Z79.82 Long term (current) use of aspirin; E78.5 Hyperlipidemia, unspecified; Z87.81 Personal history of (healed) traumatic fracture; E03.9 Hypothyroidism, unspecified; Z90.49 Acquired absence of other specified parts of digestive tract; Z98.890 Other specified postprocedural states; Z79.899 Other long term (current) drug therapy; L89.529 Pressure ulcer of left ankle, unspecified stage; L89.619 Pressure ulcer of right heel, unspecified stage; R62.7 Adult failure to thrive; Z59.0 Homelessness; I25.10 Atherosclerotic heart disease of native coronary artery without angina pectoris; F03.90 Unspecified dementia, unspecified severity, without behavioral disturbance, psychotic disturbance, mood disturbance, and anxiety; F20.9 Schizophrenia, unspecified; I48.0 Paroxysmal atrial fibrillation; K21.9 Gastro-esophageal reflux disease without esophagitis
CPT/HCPCS: 31720; 36415; 36600; 70450-TC; 71045-TC; 80048-TC; 80053-TC; 80076-TC; 80202-TC; 82803-TC; 82962-TC; 83605-TC; 83690-TC; 83735-TC; 84100-TC; 84134-TC; 85025-TC; 85378-TC; 85396; 85730-TC; 86140-TC; 87040-TC; 87081-TC; 90935-TC; 92950-TC; A4216; A4606; A4624; C1751; J0171; J0282; J0360; J0610; J1815; J2543; J3370; J3490; J7050; J7060; Z7610